=== PATIENT | female | born 1960 ===

== ENCOUNTER 2020-05-17 12:48 | Outpatient (REF) | payer OTHER, SELFPAY ==
--- NOTE | 2020-05-17 | MM_ITS ---
EXAMINATION: MM SCREENING DIGITAL BREAST TOMOSYNTHESIS, BILATERAL CLINICAL INFORMATION: Screening. Asymptomatic. The lifetime risk of breast cancer based on the Tyrer-Cuzick Model is 10.1%. COMPARISON: Mammography: November 20, 2018 and studies dating back to February 17, 2014 TECHNIQUE: Digital breast tomosynthesis is performed in both the craniocaudal and mediolateral oblique views along with computer-aided detection (CAD). Synthesized 2D images are generated from the tomosynthesis. FINDINGS: The breasts are almost entirely fatty (ACR BI-RADS breast composition Category a). There are no significant masses, abnormal calcifications, or other abnormalities. MM/MM tomosynthesis screening BI IMPRESSION: There are no significant changes from prior study. ASSESSMENT: BI-RADS 1: Negative RECOMMENDATION: Routine annual mammography screening. This patient's information was entered into a reminder system with a target due date for their next mammogram.
== END 2020-05-17 12:49 | disposition home or self-care (01) ==
LOC: HO.MAMMO 12:48
PROVIDERS: Visit Provider Internal Medicine
DX: Z12.31 Encounter for screening mammogram for malignant neoplasm of breast (principal)
CPT/HCPCS: 77063; 77067

== ENCOUNTER 2020-05-20 08:35 | Outpatient (REF) | payer OTHER, SELFPAY ==
[2020-05-20 09:25] LABS: Alanine Aminotransferase 36 U/L (0-31); Albumin Level 4.2 g/dL (3.5-5.0); Alkaline Phosphatase 53 U/L (39-117); Anion Gap 13 (12-20); Aspartate Amino Transferase 22 U/L (5-31); Bilirubin Total 0.7 mg/dL (0.0-1.0); Blood Urea Nitrogen 22 mg/dL (9-16); Calcium 9.1 mg/dL (8.4-10.2); Carbon Dioxide 28 mmol/L (22-29); Chloride 102 mmol/L (96-108); Cholesterol 241 mg/dL; Estimated Glomerular Filt Rate > 60; Glucose Fasting 116 mg/dL (60-99); HDL Cholesterol 46 mg/dL; LDL Cholesterol Calculated 150 mg/dl; Potassium 3.7 mmol/l (3.3-5.1); Sodium 139 mmol/L (135-145); Total Protein 7.5 g/dL (6.5-8.0); Triglycerides 227 mg/dL
== END 2020-05-20 08:36 | disposition home or self-care (01) ==
LOC: HO.LAB 08:35
PROVIDERS: PCP Internal Medicine; Visit Provider Internal Medicine
DX: E78.2 Mixed hyperlipidemia (principal)
CPT/HCPCS: 80053; 80061

== ENCOUNTER 2020-09-23 08:51 | Outpatient (REF) | payer OTHER, SELFPAY ==
[2020-09-23 11:00] LABS: TSH reflex Free T4 0.78 uIU/mL (0.32-4.0)
[2020-09-23 12:49] LABS: Alanine Aminotransferase 31 U/L (0-31); Albumin Level 4.2 g/dL (3.5-5.0); Alkaline Phosphatase 57 U/L (39-117); Anion Gap 14 (12-20); Aspartate Amino Transferase 20 U/L (5-31); Bilirubin Total 0.6 mg/dL (0.0-1.0); Blood Urea Nitrogen 19 mg/dL (9-16); Calcium 9.6 mg/dL (8.4-10.2); Carbon Dioxide 30 mmol/L (22-29); Chloride 102 mmol/L (96-108); Cholesterol 236 mg/dL; Estimated Glomerular Filt Rate > 60; Glucose Fasting 99 mg/dL (60-99); HDL Cholesterol 47 mg/dL; LDL Cholesterol Calculated 136 mg/dl; Potassium 4.3 mmol/L (3.3-5.1); Sodium 142 mmol/L (135-145); Total Protein 7.3 g/dL (6.5-8.0); Triglycerides 267 mg/dL
== END 2020-09-23 08:52 | disposition home or self-care (01) ==
LOC: HO.LAB 08:51
PROVIDERS: PCP Internal Medicine; Visit Provider Internal Medicine
DX: I10 Essential (primary) hypertension (principal); E78.5 Hyperlipidemia, unspecified; H05.20 Unspecified exophthalmos
CPT/HCPCS: 36415; 80053; 80061; 84443

== ENCOUNTER → 2020-11-22 12:32 | Outpatient (BNVA) | payer OTHER, SELFPAY | PROVIDERS: PCP Internal Medicine; Visit Provider Student in an Organized Health Care Education/Training Program | DX: M17.0 Bilateral primary osteoarthritis of knee (principal); F32.9 Major depressive disorder, single episode, unspecified; I10 Essential (primary) hypertension | CPT/HCPCS: 99212 ==

== ENCOUNTER 2021-01-27 09:37 | Outpatient (REF) | payer OTHER, SELFPAY ==
[2021-01-27 10:45] LABS: Alanine Aminotransferase 26 U/L (0-31); Albumin Level 4.2 g/dL (3.5-5.0); Alkaline Phosphatase 59 U/L (39-117); Anion Gap 11 (12-20); Aspartate Amino Transferase 19 U/L (5-31); Bilirubin Total 0.4 mg/dL (0.0-1.0); Blood Urea Nitrogen 12 mg/dL (9-16); Calcium 9.5 mg/dL (8.4-10.2); Carbon Dioxide 27 mmol/L (22-29); Chloride 108 mmol/L (96-108); Cholesterol 222 mg/dL; Estimated Glomerular Filt Rate > 60; Glucose Fasting 91 mg/dL (60-99); HDL Cholesterol 47 mg/dL; LDL Cholesterol Calculated 147 mg/dl; Potassium 4.4 mmol/L (3.3-5.1); Sodium 142 mmol/L (135-145); Total Protein 7.4 g/dL (6.5-8.0); Triglycerides 142 mg/dL
== END 2021-01-27 09:38 | disposition home or self-care (01) ==
LOC: HO.LAB 09:37
PROVIDERS: PCP Internal Medicine; Visit Provider Internal Medicine
DX: E78.5 Hyperlipidemia, unspecified (principal); E78.2 Mixed hyperlipidemia
CPT/HCPCS: 36415; 80053; 80061

== ENCOUNTER 2021-01-30 16:22 | Outpatient (REF) | payer OTHER, SELFPAY ==
--- NOTE | ~2021-01-30 | XR_ITS ---
EXAMINATION: XR KNEE, LEFT CLINICAL INFORMATION: Pain COMPARISON: Previous x-ray October 2017 TECHNIQUE: Four views of the left knee. FINDINGS: Bone alignment is normal. No fracture or dislocation is seen. There is joint space narrowing at the lateral femoral tibial joint. There are small osteophytes at the patellofemoral joint. There are osteophytes at the quadriceps tendon insertion to the patella and the patellar tendon origin. There is a moderate to large joint effusion. XR/XR knee LT 2V IMPRESSION: Mild arthritis and moderate to large joint effusion.
== END 2021-01-30 16:23 | disposition home or self-care (01) ==
LOC: HO.XRAY 16:22
PROVIDERS: PCP Internal Medicine; Visit Provider Internal Medicine
DX: M25.562 Pain in left knee (principal)
CPT/HCPCS: 73560

== ENCOUNTER 2021-02-19 09:46 | Outpatient (REF) | payer OTHER, SELFPAY | END 2021-02-19 09:47 | disposition home or self-care (01) | LOC: HO.LAB 09:46 | PROVIDERS: PCP Internal Medicine; Visit Provider Internal Medicine | DX: Z20.822 Contact with and (suspected) exposure to COVID-19 (principal) | CPT/HCPCS: C9803; U0003; U0005 ==

== ENCOUNTER 2021-03-12 08:01 | Outpatient (REF) | payer OTHER, SELFPAY | END 2021-03-12 08:02 | disposition home or self-care (01) | LOC: HO.HOSX 08:01 | PROVIDERS: Visit Provider Orthopaedic Surgery | DX: Z13.89 Encounter for screening for other disorder (principal) ==

== ENCOUNTER 2021-05-25 10:50 | Outpatient (REF) | payer OTHER, SELFPAY ==
--- NOTE | ~2021-05-25 | MM_ITS ---
EXAMINATION: MM SCREENING DIGITAL BREAST TOMOSYNTHESIS, BILATERAL CLINICAL INFORMATION: Screening. Asymptomatic. The lifetime risk of breast cancer based on the Tyrer-Cuzick Model is 12%. COMPARISON: Mammography: 05/17/2020, 11/20/2018, 10/14/2017 TECHNIQUE: Digital breast tomosynthesis is performed in both the craniocaudal and mediolateral oblique views along with computer-aided detection (CAD). Synthesized 2D images are generated from the tomosynthesis. FINDINGS: The breasts are almost entirely fatty (ACR BI-RADS breast composition Category a). There are no significant masses, abnormal calcifications, or other abnormalities. Background stromal markings are stable. No abnormal calcifications. No developing density. Low left axillary tail node stable. No significant changes. MM/MM tomosynthesis screening BI IMPRESSION: No mammographic evidence of malignancy. ASSESSMENT: BI-RADS 1: Negative RECOMMENDATION: Routine annual mammography screening. This patient's information was entered into a reminder system with a target due date for their next mammogram.
== END 2021-05-25 10:51 | disposition home or self-care (01) ==
LOC: HO.MAMMO 10:50
PROVIDERS: Visit Provider Internal Medicine
DX: Z12.31 Encounter for screening mammogram for malignant neoplasm of breast (principal)
CPT/HCPCS: 77063; 77067

== ENCOUNTER 2021-06-22 11:04 | Outpatient (REF) | payer OTHER, SELFPAY ==
[2021-06-22 11:28] LABS: MANUAL DIFF FLAG NO
[2021-06-22 11:47] LABS: Basophils Percent Auto 0.4 % (0-2); Eosinophils Absolute Auto 0.1 X10*3/uL (0.0-0.4); Eosinophils Percent Auto 0.8 % (0-4); Hematocrit 40.8 % (37.0-47.0); Hemoglobin 13.4 g/dl (12.0-16.0); Imm Gran Abs Auto 0.02 X10*3/uL (0.00-0.03); Imm Gran Pct Auto 0.2 % (0.0-0.4); Lymphocytes Absolute Auto 1.7 X10*3/uL (1.2-4.9); Mean Corpuscular HGB Conc 32.8 g/dl (31.0-35.0); Mean Corpuscular Hemoglobin 29.5 pg (27.0-33.0); Mean Corpuscular Volume 89.9 fL (80.0-98.0); Mean Platelet Volume 12.3 fL (9.4-12.3); Monocytes Absolute Auto 0.7 X10*3/uL (0.1-1.2); Monocytes Percent Auto 8.5 % (2-11); Neutrophils Absolute Auto 5.8 x10*3/uL (2.0-8.3); Neutrophils Percent Auto 70.1 % (45-73); Platelet Count 240 X10*3/uL (160-400); Red Blood Count 4.54 X10*6/uL (4.20-5.50); White Blood Count 8.3 X10*3/uL (4.8-10.8)
[2021-06-22 12:25] LABS: Alanine Aminotransferase 26 U/L (0-31); Alkaline Phosphatase 58 U/L (39-117); Anion Gap 10 (12-20); Aspartate Amino Transferase 18 U/L (5-31); Bilirubin Total 0.4 mg/dL (0.0-1.0); Blood Urea Nitrogen 8 mg/dL (9-16); Calcium 9.5 mg/dL (8.4-10.2); Carbon Dioxide 26 mmol/L (22-29); Chloride 108 mmol/L (96-108); Cholesterol 246 mg/dL; Estimated Glomerular Filt Rate > 60; Glucose Fasting 101 mg/dL (60-99); HDL Cholesterol 46 mg/dL; LDL Cholesterol Calculated 158 mg/dl; Sodium 140 mmol/L (135-145); Total Protein 7.3 g/dL (6.5-8.0); Triglycerides 214 mg/dL
[2021-06-22 12:36] LABS: Free T4 (Free Thyroxine) 0.98 ng/dL (0.71-1.85); Thyroid Stimulating Hormone 0.76 uIU/mL (0.32-4.0)
[2021-06-27 15:31] LABS: Vitamin D 25-OH, D2 <4 ng/mL; Vitamin D 25-OH, D3 15 ng/mL; Vitamin D 25-OH, Total 15 ng/mL (30-100)
== END 2021-06-22 11:05 | disposition home or self-care (01) ==
LOC: HO.LAB 11:04
PROVIDERS: PCP Internal Medicine; Visit Provider Internal Medicine
DX: E66.01 Morbid (severe) obesity due to excess calories (principal); Z68.36 Body mass index [BMI] 36.0-36.9, adult; I10 Essential (primary) hypertension; E78.5 Hyperlipidemia, unspecified; E55.9 Vitamin D deficiency, unspecified
CPT/HCPCS: 36415; 80053; 80061; 82306; 84439; 84443; 85025

== ENCOUNTER 2021-11-02 09:08 | Outpatient (REF) | payer OTHER, SELFPAY ==
[2021-11-02 10:58] LABS: Alanine Aminotransferase 27 U/L (0-31); Albumin Level 4.3 g/dL (3.5-5.0); Alkaline Phosphatase 47 U/L (39-117); Anion Gap 13 (12-20); Aspartate Amino Transferase 21 U/L (5-31); Bilirubin Total 0.6 mg/dL (0.0-1.0); Blood Urea Nitrogen 20 mg/dL (9-16); Carbon Dioxide 27 mmol/L (22-29); Chloride 104 mmol/L (96-108); Cholesterol 212 mg/dL; Estimated Glomerular Filt Rate > 60; Glucose Fasting 94 mg/dL (60-99); HDL Cholesterol 47 mg/dL; LDL Cholesterol Calculated 137 mg/dl; Potassium 4.1 mmol/L (3.3-5.1); Sodium 140 mmol/L (135-145); Total Protein 7.7 g/dL (6.5-8.0); Triglycerides 140 mg/dL
== END 2021-11-02 09:09 | disposition home or self-care (01) ==
LOC: HO.LAB 09:08
PROVIDERS: PCP Internal Medicine; Visit Provider Internal Medicine
DX: E78.5 Hyperlipidemia, unspecified (principal); E66.01 Morbid (severe) obesity due to excess calories; Z68.35 Body mass index [BMI] 35.0-35.9, adult
CPT/HCPCS: 36415; 80053; 80061

== ENCOUNTER → 2021-11-22 12:42 | Outpatient (BNVA) | payer OTHER, SELFPAY | PROVIDERS: PCP Internal Medicine; Visit Provider Nurse Practitioner Family | DX: M17.0 Bilateral primary osteoarthritis of knee (principal); M54.50 Low back pain, unspecified | CPT/HCPCS: 99212 ==

== ENCOUNTER 2021-11-26 10:00 | Outpatient (REF) | payer OTHER, SELFPAY ==
--- NOTE | ~2021-11-26 | XR_ITS ---
EXAMINATION: XR LUMBAR SPINE XR KNEE, RIGHT CLINICAL INFORMATION: Low back pain. Right knee pain. COMPARISON: None. TECHNIQUE: Lumbar spine 3 views. Right knee 4 views. FINDINGS: Lumbar Spine: There is maintained lumbar lordosis. There is grade 1 anterolisthesis L3 over L4 and L4 over L5. The rest of the vertebral alignment is normal. There is loss of L4-L5 disc height. The rest of the disc heights are normal. There is no visible acute fracture, dislocation or subluxation seen. There is mild bilateral L4-L5 facet joint arthropathy. The SI joints are symmetrical and normal. The paravertebral soft tissues are normal. Right Knee: Their is mild valgus deformity right knee. There is moderate loss of lateral and patellar femoral compartment joint space with mild periarticular spurring. There is mild suprapatellar joint effusion. No loose bodies or bony erosive changes seen. There is no acute fracture. XR/XR lumbar spine 2-3V IMPRESSION: Moderate degenerative changes lateral and patellofemoral compartments. No visible acute fracture or dislocation seen. Grade 1 anterolisthesis L3 over L4 and L4 over L5. Mild degenerative disc changes L4-L5 disc level.
--- NOTE | ~2021-11-26 | XR_ITS ---
EXAMINATION: XR LUMBAR SPINE XR KNEE, RIGHT CLINICAL INFORMATION: Low back pain. Right knee pain. COMPARISON: None. TECHNIQUE: Lumbar spine 3 views. Right knee 4 views. FINDINGS: Lumbar Spine: There is maintained lumbar lordosis. There is grade 1 anterolisthesis L3 over L4 and L4 over L5. The rest of the vertebral alignment is normal. There is loss of L4-L5 disc height. The rest of the disc heights are normal. There is no visible acute fracture, dislocation or subluxation seen. There is mild bilateral L4-L5 facet joint arthropathy. The SI joints are symmetrical and normal. The paravertebral soft tissues are normal. Right Knee: Their is mild valgus deformity right knee. There is moderate loss of lateral and patellar femoral compartment joint space with mild periarticular spurring. There is mild suprapatellar joint effusion. No loose bodies or bony erosive changes seen. There is no acute fracture. XR/XR knee RT 3V IMPRESSION: Moderate degenerative changes lateral and patellofemoral compartments. No visible acute fracture or dislocation seen. Grade 1 anterolisthesis L3 over L4 and L4 over L5. Mild degenerative disc changes L4-L5 disc level.
[2021-11-26 11:00] LABS: Alanine Aminotransferase 22 U/L (0-31); Albumin Level 4.4 g/dL (3.5-5.0); Alkaline Phosphatase 49 U/L (39-117); Anion Gap 13 (12-20); Aspartate Amino Transferase 17 U/L (5-31); Bilirubin Total 0.3 mg/dL (0.0-1.0); Blood Urea Nitrogen 24 mg/dL (9-16); Calcium 10.2 mg/dL (8.4-10.2); Carbon Dioxide 26 mmol/L (22-29); Chloride 103 mmol/L (96-108); Estimated Glomerular Filt Rate > 60; Glucose Fasting 101 mg/dL (60-99); Potassium 4.1 mmol/L (3.3-5.1); Sodium 138 mmol/L (135-145); Total Protein 7.6 g/dL (6.5-8.0)
== END 2021-11-26 10:01 | disposition home or self-care (01) ==
LOC: HO.XRAY 10:00
PROVIDERS: PCP Internal Medicine; Visit Provider Nurse Practitioner Family
DX: M25.561 Pain in right knee (principal); M54.50 Low back pain, unspecified; I10 Essential (primary) hypertension
CPT/HCPCS: 36415; 72100; 73562; 80053

== ENCOUNTER 2022-04-12 10:30 | Emergency (ER) | payer OTHER, SELFPAY ==
--- NOTE | 2022-04-12 | ECG_ITS ---
Test Reason : chest pain Blood Pressure : / mmHG Vent. Rate : 087 BPM Atrial Rate : 097 BPM P-R Int : 130 ms QRS Dur : 098 ms QT Int : 370 ms P-R-T Axes : -15 -44 043 degrees QTc Int : 445 ms Poor data quality Sinus rhythm Left anterior fascicular block RSR' or QR pattern in V1 suggests right ventricular conduction delay Left ventricular hypertrophy ( R in aVL , [place] product , Romhilt-Morales ) Abnormal ECG When compared with ECG of 16-DEC-2018 19:45, T wave inversion no longer evident in Inferior leads Referred By: Generic ED Physician Electronically Signed By:MAHAMED BARGER MD
--- NOTE | ~2022-04-12 | CT_ITS ---
EXAMINATION: CT HEAD WITHOUT CONTRAST CLINICAL INFORMATION: Left-sided headache COMPARISON: 03/05/2016 TECHNIQUE: Contiguous axial imaging was performed from the skull base to vertex without intravenous administration of contrast. This CT examination was performed using dose optimization techniques as appropriate, variously including the following: *Automated exposure control *Adjustment of mA and/or kV according to patient size (this includes techniques or standardized protocols for targeted exams where dose is matched to indication/reason for exam; i.e. extremities or head) *Use of iterative reconstruction technique DLP: 770 mGy-cm FINDINGS: There is no evidence of acute intracranial hemorrhage or territorial infarction. No abnormal mass effect or midline shift is seen. Clemons to white matter differentiation is well preserved. No extra-axial fluid collections are identified. No hydrocephalus. No significant volume loss. There is no abnormal attenuation within the brain parenchyma. No acute osseous or soft tissue abnormality. The mastoid air cells and visualized portions of the paranasal sinuses are well aerated. CT/CT head/brain wo IV con IMPRESSION: No acute intracranial pathology.
--- NOTE | ~2022-04-12 | XR_ITS ---
EXAMINATION: XR CHEST CLINICAL INFORMATION: Right-sided chest pain COMPARISON: 01/24/2017 TECHNIQUE: Frontal view of the chest was obtained. FINDINGS: Articulates overlie the chest. The lungs are well expanded. There is no focal consolidation, edema, or effusion. No pneumothorax. The cardiomediastinal silhouette is within normal limits. No acute osseous abnormality. XR/XR chest 1V IMPRESSION: No acute pulmonary disease.
[2022-04-12 10:32] VITALS: BP 187/103; PULSE 88; RESP 16; TEMP 36; O2SAT 97; BMI 32.3
[2022-04-12 10:49] LABS: MANUAL DIFF FLAG NO
[2022-04-12 10:51] LABS: Basophils Absolute Auto 0.1 X10*3/uL (0.0-0.2); Basophils Percent Auto 0.7 % (0-2); Eosinophils Absolute Auto 0.1 X10*3/uL (0.0-0.4); Eosinophils Percent Auto 0.5 % (0-4); Hemoglobin 15.6 g/dl (12.0-16.0); Imm Gran Abs Auto 0.04 X10*3/uL (0.00-0.03); Imm Gran Pct Auto 0.3 % (0.0-0.4); Lymphocytes Absolute Auto 2.2 X10*3/uL (1.2-4.9); Lymphocytes Percent Auto 18.2 % (20-40); Mean Corpuscular HGB Conc 33.9 g/dl (31.0-35.0); Mean Corpuscular Hemoglobin 28.6 pg (27.0-33.0); Mean Corpuscular Volume 84.4 fL (80.0-98.0); Mean Platelet Volume 12.1 fL (9.4-12.3); Monocytes Percent Auto 8.5 % (2-11); Neutrophils Absolute Auto 8.6 x10*3/uL (2.0-8.3); Neutrophils Percent Auto 71.8 % (45-73); Platelet Count 326 X10*3/uL (160-400); Red Blood Count 5.45 X10*6/uL (4.20-5.50); Red Cell Distribution Width 13.2 % (11.0-16.0)
[2022-04-12 11:03] LABS: Anion Gap 19 (12-20); Blood Urea Nitrogen 16 mg/dL (9-16); Calcium 10.1 mg/dL (8.4-10.2); Carbon Dioxide 20 mmol/L (22-29); Chloride 103 mmol/L (96-108); Creatinine Clr Calc Pharmacy 90.9; Estimated Glomerular Filt Rate > 60; Glucose Random 91 mg/dL (60-115); Potassium 4.1 mmol/L (3.3-5.1); Sodium 138 mmol/L (135-145)
[2022-04-12 11:11] LABS: Troponin-I High Sensitivity < 3.5 ng/L (<3.5-17.0)
[2022-04-12 11:32] LABS: Erythrocyte Sedimentation Rate 7 MM/HR (0-20)
--- NOTE | 2022-04-12 12:01 | ED_ITS ---
HPI - Chest Pain General Chief Complaint: Chest Pain Stated Complaint: head pain, chest pain, high blood pressure Time Seen by Provider: 04/12/22 11:09 History of Present Illness HPI narrative: [age] year female history of anxiety, and high blood pressure presents to ED for left-sided headache, right-sided chest pain described as heart palpitation for the past 3 days. Patient feels anxious. Patient denies any shortness of breath, leg swelling, calf pain, coughing up blood, slurred speech, loss of vision, facial droop, or paralysis of extremities. Patient states her highest blood pressure has been is 174 systolic. Patient is on blood pressure medication. patient denies any trauma. Patient denies any chest pain described as pressure. Related Data Home Medications Medication Instructions Recorded Confirmed bupropion HCl 300 mg 24 hr tablet, 300 mg PO QAM 05/31/20 03/27/22 extended release acetaminophen 650 mg 1,300 mg PO Q12H 11/22/21 03/27/22 tablet,extended release (Tylenol Arthritis Pain) Previous Rx's Medication Instructions Recorded ibuprofen 400 mg tablet 400 mg PO Q8H PRN pain 30 days #90 05/31/20 tabs trazodone 50 mg tablet 100 mg PO BEDTIME PRN insomnia 90 07/28/20 days #90 tabs walker #1 ea 01/30/21 chlorthalidone 50 mg tablet 50 mg PO DAILY 90 days #90 tabs 03/28/21 lisinopril 40 mg tablet 40 mg PO DAILY 90 days #90 tabs 06/21/21 atorvastatin 80 mg tablet 80 mg PO BEDTIME 90 days #90 tabs 06/26/21 cholecalciferol (vitamin D3) 50 50 mcg PO DAILY 90 days #90 caps 06/27/21 mcg (2,000 unit) capsule fenofibrate 54 mg tablet 54 mg PO DAILY 90 days #90 tabs 10/18/21 clonazepam 0.5 mg tablet 0.5 mg PO BID PRN anxiety 10 days 01/22/22 #20 tabs amlodipine 10 mg tablet 10 mg PO DAILY 90 days #90 tabs 03/27/22 Allergies Allergy/AdvReac Type Severity Reaction Status Date / Time aspirin [ASA] Allergy Intermediate PALPITATION Verified 03/27/22 13:05 S Penicillins [PENICILLINS] Allergy Intermediate RASH Verified 03/27/22 13:05 topiramate AdvReac Intermediate headache Verified 03/27/22 13:05 Review of Systems Review of Systems: Left-sided headache, right-sided chest pain described as palpitations Yes all other systems are reviewed and are negative [facility] Past Medical History Medical History Anxiety Effusion, left knee Essential hypertension Left knee pain Lumbar degenerative disc disease Mild recurrent major depression Mixed hyperlipidemia Physical exam Severe obesity (BMI 35.0-35.9 with comorbidity) Severe obesity with body mass index (BMI) of 36.0 to 36.9 with serious comorbidity Surgical History History of laparoscopic cholecystectomy History of tubal ligation Family History Family History Father Myocardial infarction Alcoholism Mother Stroke Diabetes Hypertension Sister Breast cancer Son No problems noted. Family/Other FH: mental illness Mental health disorder Social History Social History Housing: House Alcohol intake: never Patient Tobacco Use Status: Never used Tobacco e-Cigarette/Vaping Use: Never Used Second Hand Smoke Exposure: No Advance Directives: Yes Advance Directives Information Provided: Yes Advance Directives on File: No service: No Current occupational status: unemployed Cognitive needs: Yes Hearing needs: No Vision needs: Yes Physical Exam Vital Signs: Vital Signs: Last Vital Signs Temp 96.8 F 04/12/22 10:32 Pulse 71 04/12/22 12:36 Resp 21 H 04/12/22 15:01 BP 158/90 H 04/12/22 15:01 Pulse Ox 97 04/12/22 15:01 O2 Del Method 04/12/22 15:01 BMI result Body Mass Index 32.3 Const: General: cooperative, healthy appearing, comfortable, no acute distress, well developed, alert, awake and Physically active Orientation/consciousness: oriented to person, oriented to time and patient oriented x3 HEENT: Head: Yes normal to inspection, Yes No palpable skull fracture present, Yes normocephalic, Yes atraumatic and No abrasion Eyes: General: appearance normal, both eyes and all related structures Neck: Neck: Yes normal visual inspection, Yes full ROM, Yes no lymphadenop athy, Yes no meningeal signs, Yes trachea midline, Yes supple, No anterior neck swelling and No tender Chest: Chest palpation & inspection: normal inspection of the chest Resp: Effort & Inspection: normal respiratory effort and able to speak in complete sentences Cardio: Jugular venous distension: no JVD Heart sounds: S1 normal heart sound present and S2 normal heart sound present GI: Inspection: Yes normal to inspection and No abdominal wall ecchymosis Palpation (GI): Soft to palpation, not firm, nontender, no guarding and not rigid : General: No CVA tenderness and Yes no CVA tenderness Back/Spine/Pelvis: Back: no CVA tenderness, No CVA tenderness and No back tenderness Skin: General skin exam: no rashes or lesions noted and elasticity normal Neuro: Other: NEGATIVE SLURRED SPEECH. NEGATIVE FACIAL DROOP. ALL EXTREMITIES EQUAL STRENGTH 5+. [id number] RAPID HAND MOVEMENT INTACT. NEGATIVE ROMBERG General: oriented to person, oriented to time, patient oriented x3, gait normal, tone normal, moves all extremities, no meningeal signs and CN's II-XI intact bilaterally Extrem: Other: negative for any swelling of lower extremities, calf pain, or tenderness on palpation Psych: Appearance: grossly normal, well kempt and not disheveled Course Course Course Narrative: medical evaluation to be done. Labs were ordered and ESR was included including troponin. Unlikely PE but due to patient stated right-sided chest pain described as palpitation but added D-dimer. Also at thyroid level. Negative for any neuro deficits. Due to aid with headache for 3 days will do a head CT scan. Also will check eye pressure to make sure there is no glaucoma. Reevaluation(s) Reevaluation #1: ESR came back negative not suspecting temperaturoral arteritis. Not suspect a meningitis. Left eye tonometry pressure is 4. riGHT EYE TONOMETRY PRESSURE IS 5. Not suspecting glaucoma. Head CT scan negative for bleed or stroke. One troponin negative after 3 days of right-sided palpitation. D-dimer negative. Wells score is 0. Spoke with daughter who states patient has been on the ANXIOUS at home due to problems in her home and with the neighbors and required cameras. Daughter admits to patient's suffering from severe anxiety AND STARTED HAVIGN SYMPTOMS DUE TO INCREASE CONFRONTATIONS WITH NEIGHBORS.. EKG negative STEMI. EKG shows premature ventricular complexes. Time: 14:54 MDM - Chest Pain MDM Narrative Medical decision making narrative: atypical chest pain. Headache. Anxiety Lab Data Result diagrams: 04/12/22 10:44 04/12/22 10:44 Labs: Lab Results 04/12/22 04/12/22 04/12/22 Range/Units 10:44 10:44 10:44 WBC 12.0 H (4.8-10.8) X10*3/uL RBC 5.45 D (4.20-5.50) X10*6/uL Hgb 15.6 (12.0-16.0) g/dl Hct 46.0 (37.0-47.0) % MCV 84.4 (80.0-98.0) fL MCH 28.6 (27.0-33.0) pg MCHC 33.9 (31.0-35.0) g/dl RDW 13.2 (11.0-16.0) % Plt Count 326 D (160-400) X10*3/uL MPV 12.1 (9.4-12.3) fL Immature Gran % (Auto) 0.3 (0.0-0.4) % Neut % (Auto) 71.8 (45-73) % Lymph % (Auto) 18.2 L (20-40) % Wythe % (Auto) 8.5 (2-11) % Eos % (Auto) 0.5 (0-4) % Baso % (Auto) 0.7 (0-2) % Lymph # (Auto) 2.2 (1.2-4.9) X10*3/uL Wythe # (Auto) 1.0 (0.1-1.2) X10*3/uL Eos # (Auto) 0.1 (0.0-0.4) X10*3/uL Baso # (Auto) 0.1 (0.0-0.2) X10*3/uL Abs Immat Gran (auto) 0.04 H (0.00-0.03) X10*3/uL Absolute Neuts (auto) 8.6 H (2.0-8.3) x10*3/uL Absolute Nucleated RBC 0.000 (0.0-0.012) X10*3/uL Nucleated RBC % (auto) 0.0 (0.0-0.2) /100WBC ESR 7 (0-20) MM/HR PT (10.0-13.1) SEC INR (0.9-1.1) APTT (26.0-36.4) SEC D-Dimer High Sensitivty NG/ML Sodium 138 (135-145) mmol/L Potassium 4.1 (3.3-5.1) mmol/L Chloride 103 (96-108) mmol/L Carbon Dioxide 20 L (22-29) mmol/L Anion Gap 19 (12-20) BUN 16 (9-16) mg/dL Creatinine 0.76 (0.5-1.4) mg/dL Estim Creat Clear Calc 90.9 Estimated GFR > 60 Random Glucose 91 (60-115) mg/dL Calcium 10.1 (8.4-10.2) mg/dL Magnesium 2.1 (1.6-2.6) mg/dL Total Bilirubin 0.5 (0.0-1.0) mg/dL Direct Bilirubin 0.2 (0.0-0.5) mg/dL AST 18 (5-31) U/L ALT 20 (0-31) U/L Alkaline Phosphatase 60 D (39-117) U/L Troponin I High Sens (<3.5-17.0) ng/L Total Protein 8.4 H (6.5-8.0) g/dL Albumin 4.7 (3.5-5.0) g/dL Lipase 34 (8-78) U/L TSH 1.32 (0.32-4.0) uIU/mL COVID-19 (RUIZ) (Negative) COVID-19 Clin Com 04/12/22 04/12/22 04/12/22 Range/Units 10:44 12:04 12:04 WBC (4.8-10.8) X10*3/uL RBC (4.20-5.50) X10*6/uL Hgb (12.0-16.0) g/dl Hct (37.0-47.0) % MCV (80.0-98.0) fL MCH (27.0-33.0) pg MCHC (31.0-35.0) g/dl RDW (11.0-16.0) % Plt Count (160-400) X10*3/uL MPV (9.4-12.3) fL Immature Gran % (Auto) (0.0-0.4) % Neut % (Auto) (45-73) % Lymph % (Auto) (20-40) % Wythe % (Auto) (2-11) % Eos % (Auto) (0-4) % Baso % (Auto) (0-2) % Lymph # (Auto) (1.2-4.9) X10*3/uL Wythe # (Auto) (0.1-1.2) X10*3/uL Eos # (Auto) (0.0-0.4) X10*3/uL Baso # (Auto) (0.0-0.2) X10*3/uL Abs Immat Gran (auto) (0.00-0.03) X10*3/uL Absolute Neuts (auto) (2.0-8.3) x10*3/uL Absolute Nucleated RBC (0.0-0.012) X10*3/uL Nucleated RBC % (auto) (0.0-0.2) /100WBC ESR (0-20) MM/HR PT 11.5 (10.0-13.1) SEC INR 1.0 (0.9-1.1) APTT 36.9 H (26.0-36.4) SEC D-Dimer High Sensitivty NG/ML Sodium (135-145) mmol/L Potassium (3.3-5.1) mmol/L Chloride (96-108) mmol/L Carbon Dioxide (22-29) mmol/L Anion Gap (12-20) BUN (9-16) mg/dL Creatinine (0.5-1.4) mg/dL Estim Creat Clear Calc Estimated GFR Random Glucose (60-115) mg/dL Calcium (8.4-10.2) mg/dL Magnesium (1.6-2.6) mg/dL Total Bilirubin (0.0-1.0) mg/dL Direct Bilirubin (0.0-0.5) mg/dL AST (5-31) U/L ALT (0-31) U/L Alkaline Phosphatase (39-117) U/L Troponin I High Sens < 3.5 (<3.5-17.0) ng/L Total Protein (6.5-8.0) g/dL Albumin (3.5-5.0) g/dL Lipase (8-78) U/L TSH (0.32-4.0) uIU/mL COVID-19 (RUIZ) Negative (Negative) COVID-19 Clin Com See Note 04/12/22 Range/Units 12:04 WBC (4.8-10.8) X10*3/uL RBC (4.20-5.50) X10*6/uL Hgb (12.0-16.0) g/dl Hct (37.0-47.0) % MCV (80.0-98.0) fL MCH (27.0-33.0) pg MCHC (31.0-35.0) g/dl RDW (11.0-16.0) % Plt Count (160-400) X10*3/uL MPV (9.4-12.3) fL Immature Gran % (Auto) (0.0-0.4) % Neut % (Auto) (45-73) % Lymph % (Auto) (20-40) % Wythe % (Auto) (2-11) % Eos % (Auto) (0-4) % Baso % (Auto) (0-2) % Lymph # (Auto) (1.2-4.9) X10*3/uL Wythe # (Auto) (0.1-1.2) X10*3/uL Eos # (Auto) (0.0-0.4) X10*3/uL Baso # (Auto) (0.0-0.2) X10*3/uL Abs Immat Gran (auto) (0.00-0.03) X10*3/uL Absolute Neuts (auto) (2.0-8.3) x10*3/uL Absolute Nucleated RBC (0.0-0.012) X10*3/uL Nucleated RBC % (auto) (0.0-0.2) /100WBC ESR (0-20) MM/HR PT (10.0-13.1) SEC INR (0.9-1.1) APTT (26.0-36.4) SEC D-Dimer High Sensitivty < 150 NG/ML Sodium (135-145) mmol/L Potassium (3.3-5.1) mmol/L Chloride (96-108) mmol/L Carbon Dioxide (22-29) mmol/L Anion Gap (12-20) BUN (9-16) mg/dL Creatinine (0.5-1.4) mg/dL Estim Creat Clear Calc Estimated GFR Random Glucose (60-115) mg/dL Calcium (8.4-10.2) mg/dL Magnesium (1.6-2.6) mg/dL Total Bilirubin (0.0-1.0) mg/dL Direct Bilirubin (0.0-0.5) mg/dL AST (5-31) U/L ALT (0-31) U/L Alkaline Phosphatase (39-117) U/L Troponin I High Sens (<3.5-17.0) ng/L Total Protein (6.5-8.0) g/dL Albumin (3.5-5.0) g/dL Lipase (8-78) U/L TSH (0.32-4.0) uIU/mL COVID-19 (RUIZ) (Negative) COVID-19 Clin Com ECG Data ECG #1: Interpretation: sinus rhythm with premature ventricular complex and premature ventricular complexes or fusion. Ventricular rate 87. Pr interval 130. QRS 98. QTC 445. Negative STEMI Discharge Plan Discharge Clinical Impression: Headache, Chest pain, atypical Patient Disposition: Home, Self-Care Instructions: Chest Pain (ED), General Headache (ED) Prescriptions: No Action trazodone 50 mg tablet 100 mg PO BEDTIME PRN (Reason: insomnia) 90 Days Qty: 90 3RF chlorthalidone 50 mg tablet 50 mg PO DAILY 90 Days Qty: 90 3RF lisinopril 40 mg tablet 40 mg PO DAILY 90 Days Qty: 90 3RF cholecalciferol (vitamin D3) 50 mcg (2,000 unit) capsule 50 mcg PO DAILY 90 Days Qty: 90 1RF fenofibrate 54 mg tablet 54 mg PO DAILY 90 Days Qty: 90 3RF clonazepam 0.5 mg tablet 0.5 mg PO BID PRN (Reason: anxiety) 10 Days Qty: 20 0RF (DME) walker Misc See Rx Instructions .ROUTE .MEDSUPPLY Qty: 1 0RF Rx Instructions: with seat and wheels atorvastatin 80 mg tablet 80 mg PO BEDTIME 90 Days Qty: 90 1RF bupropion HCl 300 mg tablet extended release 24 hr 300 mg PO QAM ibuprofen 400 mg tablet 400 mg PO Q8H PRN (Reason: pain) 30 Days Qty: 90 3RF amlodipine 10 mg tablet 10 mg PO DAILY 90 Days Qty: 90 0RF acetaminophen [Tylenol Arthritis Pain] 650 mg tablet extended release 1,300 mg PO Q12H Stand Alone Forms: Work/School Release Interventions: ED Discharge Assessment Last Done: 04/12/22 16:04 Discharge Date/Time: 04/12/22 16:04 Print Language: Citizen Of [place]
[2022-04-12 12:15] LABS: Alanine Aminotransferase 20 U/L (0-31); Albumin Level 4.7 g/dL (3.5-5.0); Alkaline Phosphatase 60 U/L (39-117); Aspartate Amino Transferase 18 U/L (5-31); Bilirubin Direct 0.2 mg/dL (0.0-0.5); Bilirubin Total 0.5 mg/dL (0.0-1.0); Lipase 34 U/L (8-78); Magnesium 2.1 mg/dL (1.6-2.6); Total Protein 8.4 g/dL (6.5-8.0)
[2022-04-12 12:20] LABS: Prothrombin Time 11.5 SEC (10.0-13.1)
[2022-04-12 12:23] LABS: Partial Thromboplastin Time 36.9 SEC (26.0-36.4)
[2022-04-12 12:29] LABS: COVID-19 Test Negative (Negative); IDNOW Serial# 16C4AD1C
[2022-04-12 12:36] VITALS: BP 160/90; PULSE 71; RESP 25; O2SAT 96
[2022-04-12 12:36] LABS: Thyroid Stimulating Hormone 1.32 uIU/mL (0.32-4.0)
[2022-04-12 13:03] LABS: D Dimer High Sensitivity < 150 NG/ML
[2022-04-12 15:01] VITALS: BP 158/90; RESP 21; O2SAT 97
[2022-04-12] MEDS: Acetaminophen 325 MG TABLET 650 MG PO (16:03)
== END 2022-04-12 16:04 | disposition home or self-care (01) ==
PROVIDERS: Physician Assistant; Emergency Provider Emergency Medicine; PCP Internal Medicine
DX: R07.89 Other chest pain (principal); R51.9 Headache, unspecified; R00.2 Palpitations; Z20.822 Contact with and (suspected) exposure to COVID-19; Z79.899 Other long term (current) drug therapy
CPT/HCPCS: 36415; 70450; 71045; 80048; 80076; 83690; 83735; 84443; 84484; 85025; 85379; 85610; 85652; 85730; 87635; 93005; 99284

== ENCOUNTER 2022-05-07 08:09 | Outpatient (REF) | payer OTHER, SELFPAY ==
--- NOTE | ~2022-05-07 | US_ITS ---
EXAMINATION: US ABDOMEN COMPLETE CLINICAL INFORMATION: Left upper quadrant pain. COMPARISON: None TECHNIQUE: Real-time imaging of the abdominal viscera. FINDINGS: PANCREAS: Normal. ABDOMINAL AORTA: The proximal, mid, and distal segments are normal in caliber. INFERIOR VENA CAVA: Visualized portions are normal. LIVER: The liver is normal in size. The liver contour is normal. Increased echogenicity. There is an hyperechoic observation with posterior shadowing in the right lower lobe measuring 0.8 cm favoring to represent a calcified granuloma. There is no intrahepatic biliary duct dilatation seen. GALLBLADDER: Surgically absent. COMMON BILE DUCT: Dilated measuring 1 cm in diameter. RIGHT KIDNEY: There is a simple cyst in the interpolar region measuring 0.6 cm for which no imaging follow-up is recommended. No hydronephrosis or renal calculi. The kidney measures 11.7 cm in maximum dimension. LEFT KIDNEY: Normal. No hydronephrosis. No renal calculi or focal parenchymal lesions. The kidney measures 10.6 cm in maximum dimension. SPLEEN: Normal. The spleen measures 11.9 cm in maximum dimension. FREE FLUID: None. US/US abdomen complete IMPRESSION: 1. Increased echogenicity of the liver is nonspecific and could be seen in the setting of hepatic steatosis or hepatocellular disease. Correlate with liver function tests. 2. Nonspecific dilatation of the common bile duct in the setting of cholecystectomy. If indicated MRCP could be obtained. 3. Simple cyst in the right kidney for which no imaging follow-up is recommended.
== END 2022-05-07 08:10 | disposition home or self-care (01) ==
LOC: HO.US 08:09
PROVIDERS: Visit Provider Internal Medicine
DX: R10.12 Left upper quadrant pain (principal)
CPT/HCPCS: 76700

== ENCOUNTER 2022-05-27 10:42 | Outpatient (REF) | payer OTHER, SELFPAY ==
--- NOTE | ~2022-05-27 | MM_ITS ---
EXAMINATION: MM SCREENING DIGITAL BREAST TOMOSYNTHESIS, BILATERAL CLINICAL INFORMATION: Screening. Asymptomatic. The lifetime risk of breast cancer based on the Tyrer-Cuzick Model is 11%. COMPARISON: Mammography: 05/25/2021, 05/17/2020 TECHNIQUE: Digital breast tomosynthesis is performed in both the craniocaudal and mediolateral oblique views along with computer-aided detection (CAD). Synthesized 2D images are generated from the tomosynthesis. Additional left MLO view is provided. FINDINGS: The breasts are almost entirely fatty (ACR BI-RADS breast composition Category a). There are no significant masses, abnormal calcifications, or other abnormalities. Background stromal markings are normal. No developing density or architectural abnormality. The axilla and skin contours are unremarkable. MM/MM tomosynthesis screening BI IMPRESSION: No mammographic evidence of malignancy. ASSESSMENT: BI-RADS 1: Negative RECOMMENDATION: Routine annual mammography screening. This patient's information was entered into a reminder system with a target due date for their next mammogram.
== END 2022-05-27 10:43 | disposition home or self-care (01) ==
LOC: HO.MAMMO 10:42
PROVIDERS: PCP Internal Medicine; Visit Provider Internal Medicine
DX: Z12.31 Encounter for screening mammogram for malignant neoplasm of breast (principal)
CPT/HCPCS: 77063; 77067

== ENCOUNTER 2022-06-10 12:51 | Outpatient (REF) | payer OTHER, SELFPAY ==
--- NOTE | ~2022-06-10 | MR_ITS ---
EXAMINATION: MR ABDOMEN WITHOUT CONTRAST CLINICAL INFORMATION: Other specified diseases of biliary tract. COMPARISON: Ultrasound 05/07/2022 TECHNIQUE: MR abdomen is performed without gadolinium contrast. Heavily T2-weighted MRCP images were obtained. FINDINGS: LUNG BASES: Lung bases are clear. LIVER: Mild loss of signal on opposed phase gradient echo T1-weighted images suggest mild diffuse hepatic steatosis. No focal lesion seen on noncontrast imaging. GALLBLADDER: Status post cholecystectomy. BILIARY TREE: No intrahepatic biliary ductal dilation. The common bile duct is normal in caliber, 0.7 cm in diameter. No intraluminal filling defects seen. PANCREAS: The pancreas is normal in appearance. No ductal dilatation, mass or sanjay-pancreatic fluid seen. SPLEEN: Normal. Normal size. No focal lesion. ADRENAL GLANDS: Normal. No adrenal mass. KIDNEYS AND URETERS: Normal size and signal. No hydronephrosis or solid mass. Well-circumscribed homogeneous T2 bright 5 mm simple cyst in the right mid kidney; no imaging follow-up recommended. LYMPHOVASCULAR STRUCTURES: Normal caliber aorta. IVC patent. No pathologically enlarged abdominal or retroperitoneal lymphadenopathy by size criteria OSSEOUS STRUCTURES: No acute or suspicious osseous abnormalities. No ascites. Visualized bowel is nondilated. MR/MR MRCP IMPRESSION: Mild diffuse hepatic steatosis. No biliary ductal dilatation or choledocholithiasis status post cholecystectomy.
== END 2022-06-10 12:52 | disposition home or self-care (01) ==
LOC: HO.MRI 12:51
PROVIDERS: Visit Provider Internal Medicine
DX: K83.8 Other specified diseases of biliary tract (principal)
CPT/HCPCS: 74181

== ENCOUNTER 2022-07-19 09:47 | Outpatient (REF) | payer OTHER, SELFPAY ==
--- NOTE | ~2022-07-19 | MM_ITS ---
EXAMINATION: BONE DENSITOMETRY CLINICAL INDICATION: Menopause. COMPARISON: Baseline BD dated 02/17/2014. TECHNIQUE: Using a [employer] DXA System (software version: 13.1) manufactured by [employer], dual-energy x-ray absorptiometry was performed of the lumbar spine and left hip. The images are of good technical quality. Summary results are attached. FINDINGS: AP SPINE L1-L4: Current: BMD 1.311 g/cm2, Z-score 1.7, T-score 1.1, normal, 4.7% decrease from baseline (<5% change is not significant). Baseline: BMD 1.376 g/cm2. LEFT FEMUR, NECK: Current: BMD 0.852 g/cm2, Z-score -0.5, T-score -1.3, osteopenia. Baseline: BMD 0.975 g/cm2. LEFT FEMUR, TOTAL: Current: BMD 0.922 g/cm2, Z-score -0.2, T-score -0.7, normal, 13.7% decrease from baseline (<5% change is not significant). Baseline: BMD 1.068 g/cm2. IDENTIFIED RISK FACTORS: Menopause. HISTORY OF FRACTURE: None listed. MEDICATIONS: None listed. MM/XR DEXA axial skeleton IMPRESSION: 1. DIAGNOSIS: Osteopenia based on the lowest T-score value of -1.3 in the femoral neck applying World Health Organization criteria. 2. 10-YEAR FRACTURE RISK PREDICTION, FRAX: Major osteoporotic fracture (clinical spine, forearm, hip or shoulder) 4.3%. Hip fracture 0.4%. 3. Treatment Recommendations: NOF guidelines recommend consideration for treatment in postmenopausal women and men age 50 and older presenting with the following: -A hip or vertebral (clinical or morphometric) fracture. -T-score less than or equal to -2.5 at the femoral neck or spine after appropriate evaluation to exclude secondary causes. -Low bone mass at the hip or spine and a 10-year fracture probability by FRAX of greater than or equal to 3% for hip fracture or greater than or equal to 20% for major osteoporotic fracture based on the [place] adapted WHO algorithm. 4. Other Recommendations: All treatment decisions require clinical judgment and consideration of individual patient factors, including patient preferences, comorbidities, previous drug use, risk factors not captured in the FRAX model (e.g. frailty, falls, vitamin D deficiency, increased bone turnover, interval significant decline in bone density) and possible under or overestimation of fracture risk by FRAX. Additional medical evaluation for secondary cause of low bone mineral density may be appropriate. FUTURE SCAN RECOMMENDATION: People with diagnosed cases of osteoporosis or at high risk for fracture should have regular bone mineral density tests. For patients eligible for Medicare, routine testing is allowed once every 2 years. The testing frequency can be increased to one year for patients who have rapidly progressing disease, those who are receiving or discontinuing medical therapy to restore bone mass, or have additional risk factors.
== END 2022-07-19 09:48 | disposition home or self-care (01) ==
LOC: HO.MAMMO 09:47
PROVIDERS: PCP Internal Medicine; Visit Provider Internal Medicine
DX: Z13.820 Encounter for screening for osteoporosis (principal); N95.9 Unspecified menopausal and perimenopausal disorder; Z78.0 Asymptomatic menopausal state
CPT/HCPCS: 77080

== ENCOUNTER 2022-09-10 14:04 | Outpatient (REF) | payer OTHER, SELFPAY ==
[2022-09-11 13:05] LABS: BV Int Neg Control Negative (Negative); BV Int Pos Control Positive (Positive)
== END 2022-09-10 14:05 | disposition home or self-care (01) ==
LOC: HO.LAB 14:04
PROVIDERS: PCP Internal Medicine; Visit Provider Advanced Practice Midwife
DX: N89.8 Other specified noninflammatory disorders of vagina (principal)
CPT/HCPCS: 87480; 87510; 87660

== ENCOUNTER 2022-09-10 15:00 | Outpatient (REF) | payer OTHER, SELFPAY ==
[2022-09-14 08:54] LABS: HPV mRNA E6/E7 rflx Not Detected (Not Detected)
== END 2022-09-10 15:01 | disposition home or self-care (01) ==
LOC: HO.LNP 15:00
PROVIDERS: Visit Provider Advanced Practice Midwife
DX: Z01.419 Encounter for gynecological examination (general) (routine) without abnormal findings (principal); Z11.51 Encounter for screening for human papillomavirus (HPV)
CPT/HCPCS: 87624; 88142

== ENCOUNTER 2022-12-18 10:05 | Outpatient (REF) | payer OTHER, SELFPAY ==
[2022-12-18 11:36] LABS: Alanine Aminotransferase 20 U/L (0-31); Albumin Level 4.2 g/dL (3.5-5.0); Alkaline Phosphatase 43 U/L (39-117); Anion Gap 15 (12-20); Aspartate Amino Transferase 18 U/L (5-31); Bilirubin Total 0.4 mg/dL (0.0-1.0); Blood Urea Nitrogen 20 mg/dL (9-16); Calcium 10.2 mg/dL (8.4-10.2); Carbon Dioxide 26 mmol/L (22-29); Chloride 104 mmol/L (96-108); Cholesterol 191 mg/dL; Estimated Glomerular Filt Rate > 60; Glucose Fasting 95 mg/dL (60-99); HDL Cholesterol 60 mg/dL; LDL Cholesterol Calculated 111 mg/dl; Sodium 141 mmol/L (135-145); Total Protein 7.4 g/dL (6.5-8.0); Triglycerides 102 mg/dL
[2022-12-18 12:05] LABS: Vitamin D 25-OH Total 23.5 ng/mL (>30)
== END 2022-12-18 10:06 | disposition home or self-care (01) ==
LOC: HO.LAB 10:05
PROVIDERS: PCP Internal Medicine; Visit Provider Internal Medicine
DX: I10 Essential (primary) hypertension (principal); E78.5 Hyperlipidemia, unspecified; E55.9 Vitamin D deficiency, unspecified
CPT/HCPCS: 36415; 80053; 80061; 82306

== ENCOUNTER 2022-12-23 11:08 | Outpatient (AMB) | payer OTHER, SELFPAY ==
--- NOTE | 2022-12-23 11:09 | MHC.PC.OV ---
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 Accompanied by: Daughter Allergies aspirin [ASA] Allergy (Intermediate, Verified 12/23/22 11:15) PALPITATIONS Penicillins [PENICILLINS] Allergy (Intermediate, Verified 12/23/22 11:15) RASH topiramate Adverse Reaction (Intermediate, Verified 12/23/22 11:15) headache Medication List - Last Reconciled 12/23/22 by Olya Wolf MD acetaminophen ER (Tylenol Arthritis Pain) 1,300 mg PO Q12H amlodipine 10 mg PO DAILY 90 days atorvastatin 80 mg PO BEDTIME 90 days bupropion HCl 300 mg PO QAM chlorthalidone 50 mg PO DAILY 90 days cholecalciferol (vitamin D3) 50 mcg PO DAILY 90 days clonazepam 0.5 mg PO BID PRN 10 days fenofibrate 54 mg PO DAILY 90 days ibuprofen 400 mg PO Q8H PRN 30 days lisinopril 40 mg PO DAILY 90 days Shower Chair As directed trazodone 100 mg (2 x 50 mg) PO BEDTIME PRN 90 days walker with seat and wheels Tobacco use date assessed: 07/02/22 Fall risk assessment: 1 Fall in past year Last assessed Fall Risk: 12/23/22 Dental Screening Dental Screen Date: 12/23/22 Did you have a dental visit in the last 12 months?: No Did you have a dental problem in the last 6 months where you did not have access to dental care?: No Was dental information given to patient?: Patient has dentist HPI HPI Comments History of Present Illness Details This is a 62-year-old female with hypertension, mild recurrent major depression, mixed hyperlipidemia and anxiety that comes today for follow-up on her conditions. Blood pressure stable. Depression stable with bupropion and anxiety stable with benzodiazepines as needed. Depression with anxiety is follow by psychiatrist. Cholesterol and triglycerides well control with medication. No chest pain or shortness of breath. Accompanied by daughter and granddaughter. [facility] Medical History Anxiety Effusion, left knee Essential hypertension Left knee pain Lumbar degenerative disc disease Mild recurrent major depression Mixed hyperlipidemia Physical exam Severe obesity (BMI 35.0-35.9 with comorbidity) Severe obesity with body mass index (BMI) of 36.0 to 36.9 with serious comorbidity Surgical History History of laparoscopic cholecystectomy History of tubal ligation Family History Father Myocardial infarction Alcoholism Mother Stroke Diabetes Hypertension Sister Breast cancer Son No problems noted. Family/Other FH: mental illness Mental health disorder Social History Housing: House Alcohol intake: never Patient Tobacco Use Status: Never used Tobacco e-Cigarette/Vaping Use: Never Used Second Hand Smoke Exposure: No service: No Current occupational status: unemployed Cognitive needs: Yes Hearing needs: No Vision needs: Yes Questionnaire Thrive Questionnaire Date Thrive assessed: 07/02/22 DOUG-7 AMB Questionnaire DOUG-7 Date DOUG - 7 assessed: 07/02/22 Source: Developed by Drs. Teddy Weber, Mehreen Waterman, Scooter Ingram and colleagues, with an educational lady from [employer]. Review of Systems Const All systems reviewed & are unremarkable except as noted in HPI and below Eyes Reports no additional complaints, Denies change in vision and Denies other visual disturbances Card Denies chest pain at rest, Denies chest pain with activity, Denies edema, Denies irregular heart rhythm, Denies claudication, Denies dyspnea, Denies dyspnea on exertion, Denies orthopnea, Denies paroxysmal nocturnal dyspnea and Denies slow heart rate Resp Denies cough, Denies dyspnea and Denies dyspnea on exertion GI Denies abdominal pain, Denies change in bowel habits, Denies excessive flatus, Denies nausea and Denies vomiting Denies urinary incontinence, Denies urinary hesitancy and Denies urinary urgency Musc Denies abnormal gait, Denies atrophy, Denies deformity and Denies limited range of motion Skin/Breast Denies bleeding lesions, Denies changing lesions and Denies rash Neuro Denies abnormal gait and Denies lack of coordination Physical exam (Primary Care) Vital Signs: Last Vital Signs BP 120/70 12/23/22 11:10 BMI result Body Mass Index 31.9 Tobacco/Smoking Status: Tobacco use Status Tobacco use date assessed 07/02/22 12/23/22 11:14 Patient Tobacco Use Status Never used Tobacco 12/23/22 11:14 e-Cigarette/Vaping Use Never Used 12/23/22 11:14 Thrive Assessment: Date of Thrive Assessment Date Thrive assessed 07/02/22 12/23/22 11:14 Eyes General: appearance normal, both eyes and all related structures Eyelids: Yes eyelids normal Conjunctivae: conjunctivae normal Neck Neck: Yes normal visual inspection and Yes supple Resp Effort & Inspection: normal respiratory effort Auscultation: clear to auscultation bilaterally Cardio Jugular venous distension: no JVD Rate: regular rate Rhythm: regular rhythm Heart sounds: S1 normal heart sound present and S2 normal heart sound present Extrem General: Yes full ROM Assessment and Plan Assessment & Plan (1) Essential hypertension: Code(s): I10 - Essential (primary) hypertension Plan: Continue lisinopril, chlorthalidone and amlodipine. Blood pressure goal is equal or less than 130/80. (2) Mixed hyperlipidemia: Code(s): E78.2 - Mixed hyperlipidemia Plan: Continue statins and fibrates. (3) Mild recurrent major depression: Code(s): F33.0 - Major depressive disorder, recurrent, mild Plan: Continue bupropion. Follow-up with psychiatry. (4) Anxiety: Code(s): F41.9 - Anxiety disorder, unspecified Plan: Continue benzodiazepines as needed. Follow-up with psychiatry. Coding Level of Care Code Est Pt Level 4 (35650) Diagnoses Essential hypertension I10 Mixed hyperlipidemia E78.2 Mild recurrent major depression F33.0 Anxiety F41.9 Time Spent (min) 22
[2022-12-23 11:10] VITALS: BP 120/70; BMI 31.9
== END 2022-12-23 11:24 | disposition home or self-care (01) ==
PROVIDERS: PCP Internal Medicine; Visit Provider Internal Medicine
DX: I10 Essential (primary) hypertension (principal); E78.2 Mixed hyperlipidemia; F33.0 Major depressive disorder, recurrent, mild; F41.9 Anxiety disorder, unspecified
CPT/HCPCS: 99214

== ENCOUNTER 2023-07-04 11:24 | Outpatient (REF) | payer OTHER, SELFPAY | END 2023-07-04 11:25 | disposition home or self-care (01) | LOC: HO.MAMMO 11:24 | PROVIDERS: PCP Internal Medicine; Visit Provider Internal Medicine | DX: Z12.31 Encounter for screening mammogram for malignant neoplasm of breast (principal) | CPT/HCPCS: 77063; 77067 ==

== ENCOUNTER → 2023-07-04 11:45 | Outpatient (BNV) | payer OTHER, SELFPAY | PROVIDERS: PCP Internal Medicine; Visit Provider Radiology Diagnostic Radiology | DX: Z12.31 Encounter for screening mammogram for malignant neoplasm of breast (principal) | CPT/HCPCS: 77063; 77067 ==

== ENCOUNTER 2023-07-14 10:03 | Outpatient (AMB) | payer OTHER, SELFPAY ==
--- NOTE | 2023-07-14 10:12 | A.OFFPC_ITS ---
Vital Signs 07/14/23 10:14 Height 5 ft 8 in Weight 215 lb BMI 32.7 BP 132/80 Blood Pressure Location Lt brachial Position Sitting Intake Visit Reasons: Annual Exam Intake Note: Patient here for an annual physical exam Manager Administrative Required: No Accompanied by: Daughter Allergies aspirin [ASA] Allergy (Intermediate, Verified 07/14/23 10:37) PALPITATIONS Penicillins [PENICILLINS] Allergy (Intermediate, Verified 07/14/23 10:37) RASH topiramate Adverse Reaction (Intermediate, Verified 07/14/23 10:37) headache Medication List - Last Reconciled 07/14/23 by Olya Wolf MD acetaminophen ER (Tylenol Arthritis Pain) 1,300 mg PO Q12H amlodipine 10 mg PO DAILY 90 days atorvastatin 80 mg PO BEDTIME 90 days bupropion HCl 300 mg PO QAM chlorthalidone 50 mg PO DAILY 90 days cholecalciferol (vitamin D3) 50 mcg PO DAILY 90 days clonazepam 0.5 mg PO BID PRN 10 days fenofibrate 54 mg PO DAILY 90 days ibuprofen 400 mg PO Q8H PRN 30 days lisinopril 40 mg PO DAILY 90 days Shower Chair As directed trazodone 100 mg (2 x 50 mg) PO BEDTIME PRN 90 days walker with seat and wheels Tobacco use date assessed: 07/14/23 Fall risk assessment: No Falls in past year Last assessed Fall Risk: 07/14/23 Dental Screening Dental Screen Date: 07/14/23 Did you have a dental visit in the last 12 months?: No Did you have a dental problem in the last 6 months where you did not have access to dental care?: No Was dental information given to patient?: Patient has dentist HPI HPI Comments History of Present Illness Details This is a 63-year-old female with mild major depression that comes for her physical exam. Depression stable with bupropion. Last mammogram was June 2023 and results are still pending. Last Pap smear was 2022 and was normal. Last colonoscopy was 2013 and was normal with not an excellent prep and was advised to be repeated in 5-7 years. No chest pain or shortness of breath. [facility] Medical History Severe obesity (BMI 35.0-35.9 with comorbidity) Physical exam Effusion, left knee Severe obesity with body mass index (BMI) of 36.0 to 36.9 with serious comorbidity Mild recurrent major depression Left knee pain Lumbar degenerative disc disease Anxiety Mixed hyperlipidemia Essential hypertension Surgical History History of tubal ligation History of laparoscopic cholecystectomy Family History Father Myocardial infarction Alcoholism Mother Stroke Diabetes Hypertension Sister Breast cancer Son No problems noted. Family/Other FH: mental illness Mental health disorder Social History Housing: House Alcohol intake: never Patient Tobacco Use Status: Never used Tobacco e-Cigarette/Vaping Use: Never Used Second Hand Smoke Exposure: No service: No Current occupational status: unemployed Cognitive needs: Yes Hearing needs: No Vision needs: Yes Questionnaire PHQ-9 Over the last 2 weeks, how often have you been bothered by any of the following problems? 1. Little interest or pleasure in doing things: several days 2. Feeling down, depressed, or hopeless: several days 3. Trouble falling or staying asleep, or sleeping too much: several days 4. Feeling tired or having little energy: several days 5. Poor appetite or overeating: not at all 6. Feeling bad about yourself - or that you are a failure or have let yourself or your family down: not at all 7. Trouble concentrating on things, such as reading the newspaper or watching television: not at all 8. Moving or speaking so slowly that other people could have noticed. Or the opposite - being so fidgety or restless that you have been moving around a lot more than usual: not at all 9. Thoughts that you would be better off or of hurting yourself in some way: not at all Total score: 4 Depression Screening Interpretation: Positive Depression Screening Follow-up: Existing condition and In treatment Depression Screening Done: Yes 43183 - PHQ-9 Billing: Yes Source: Developed by Drs. Teddy Weber, Mehreen Waterman, Scooter Ingram and colleagues, with an educational lady from [employer]. Thrive Questionnaire Date Thrive assessed: 07/14/23 I am a: Patient What is your living situation today?: I have a steady place to live Within the past 12 months, did the food you bought not last and you didn't have the money to get more?: Never true Within the past 12 months, did you worry whether your food would run out before you got money to buy more?: Never true Do you have trouble paying for medicines?: No Do you have trouble getting transportation to medical appointments?: No Do you have trouble paying your heating and electricity bill?: No Do you have trouble taking care of your child, family member or friend?: No Do you have trouble with day-to-day activities such as bathing, preparing meals, shopping, managing finances, etc.?: No Are you currently unemployed and looking for a job?: No Are you interested in more education?: No Please select the resources that you would like help with: None Currently or been in a relationship where the following occur: no concerns reported THRIVE Score: 0 AUDIT C Alcohol Use Questionnaire (AUDIT-C) 1. How often do you have a drink containing alcohol?: Never Total Score: 0 Score Reviewed/Action Taken: No DOUG-7 AMB Questionnaire DOUG-7 Date DOUG - 7 assessed: 07/14/23 Feeling nervous, anxious, or on edge: 1 = Several days Not being able to stop or control worryin = Not at all Worrying too much about different things: 1 = Several days Trouble relaxin = Not at all Being so restless that it is hard to sit still: 0 = Not at all Becoming easily annoyed or irritable: 0 = Not at all Feeling afraid as if something awful might happen: 1 = Several days Total DOUG-7 score (0-4 normal; 5-9 mild; 10-14 moderate; 15-21 severe): 3 Source: Developed by Drs. Teddy Weber, Mehreen Waterman, Scooter Ingram and colleagues, with an educational lady from [employer]. DOUG-7 Assessment Billing DOUG-7 Assessment Tool: DOUG-7 Assessment 56418 Review of Systems Const All systems reviewed & are unremarkable except as noted in HPI and below Eyes Reports no additional complaints, Denies change in vision and Denies other visual disturbances Card Denies chest pain at rest, Denies chest pain with activity, Denies edema, Denies irregular heart rhythm, Denies claudication, Denies dyspnea, Denies dyspnea on exertion, Denies orthopnea, Denies paroxysmal nocturnal dyspnea and Denies slow heart rate Resp Denies cough, Denies dyspnea and Denies dyspnea on exertion GI Denies abdominal pain, Denies change in bowel habits, Denies excessive flatus, Denies nausea and Denies vomiting Denies urinary incontinence, Denies urinary hesitancy and Denies urinary urgency Musc Denies abnormal gait, Denies atrophy, Denies deformity and Denies limited range of motion Skin/Breast Denies bleeding lesions, Denies changing lesions and Denies rash Neuro Denies abnormal gait, Denies behavioral changes, Denies confusion and Denies lack of coordination Psych Denies behavioral changes and Denies confusion Physical exam (Primary Care) Vital Signs: Last Vital Signs BP 132/80 07/14/23 10:14 BMI result Body Mass Index 32.7 Tobacco/Smoking Status: Tobacco use Status Tobacco use date assessed 07/14/23 07/14/23 10:21 Patient Tobacco Use Status Never used Tobacco 07/14/23 10:21 e-Cigarette/Vaping Use Never Used 07/14/23 10:21 PHQ-9: PHQ-9 Score PHQ-9: Total score 4 07/14/23 10:39 Depression Screening Interpretation: Positive Depression Screening Follow-up: Existing condition and In treatment Thrive Assessment: Date of Thrive Assessment Date Thrive assessed 07/14/23 07/14/23 10:21 Currently or been in a relationship where the following occur: no concerns reported Const General: No confusion Orientation/consciousness: patient oriented x3 and No confusion HENMT Head: Yes normal to inspection, Yes normocephalic and Yes atraumatic Ears: external ears normal Eyes General: appearance normal, both eyes and all related structures Eyelids: Yes eyelids normal Conjunctivae: conjunctivae normal Neck Neck: Yes normal visual inspection and Yes supple Resp Effort & Inspection: normal respiratory effort Auscultation: clear to auscultation bilaterally Cardio Jugular venous distension: no JVD Rate: regular rate Rhythm: regular rhythm Heart sounds: S1 normal heart sound present and S2 normal heart sound present GI Inspection: Yes normal to inspection Palpation (GI): Soft to palpation and nontender Auscultation: normal bowel sounds Skin General skin exam: no rashes or lesions noted Neuro General: patient oriented x3, no focal motor deficits and No confusion Extrem General: Yes full ROM Psych Appearance: grossly normal Assessment and Plan Assessment & Plan (1) Physical exam: Code(s): Z00.00 - Encounter for general adult medical examination without abnormal findings Plan: Repeat in a year. (2) Mild recurrent major depression: Code(s): F33.0 - Major depressive disorder, recurrent, mild Plan: Continue bupropion. Orders: Orders Lipid Panel Today E78.5 - Hyperlipidemia, unspecified Comprehensive [place]. Panel Fast Today Z00.00 - Encounter for general adult medical examination without abnormal findings Referrals Open Access Screening Colonoscopy Referral Z12.11 - Encounter for screening for malignant neoplasm of colon Medications: New cholestyramine (with sugar) 4 gram administer w/meal; avoid other meds within 1hr before or 4-6hr after dose 4 grams PO DAILY PRN 378 grams 3RF diarrhea 30 days Coding Level of Care Code Est Pt Prev Care 40-64y(66995) Diagnoses Physical exam Z00.00 Mild recurrent major depression F33.0 Additional Codes DOUG-7 Assessment Billing - DOUG-7 Assessment Tool: DOUG-7 Assessment 09002 ([id number]) Time Spent (min) 33
[2023-07-14 10:14] VITALS: BP 132/80; BMI 32.7
== END 2023-07-14 10:49 | disposition home or self-care (01) ==
PROVIDERS: Visit Provider Internal Medicine
DX: Z00.00 Encounter for general adult medical examination without abnormal findings (principal); F33.0 Major depressive disorder, recurrent, mild
CPT/HCPCS: 96127; 99397

== ENCOUNTER 2023-11-28 10:27 | Outpatient (REF) | payer OTHER, SELFPAY | END 2023-11-28 10:28 | disposition home or self-care (01) | LOC: HO.LAB 10:27 | PROVIDERS: Visit Provider Advanced Practice Midwife | DX: Z01.419 Encounter for gynecological examination (general) (routine) without abnormal findings (principal); N95.0 Postmenopausal bleeding; R35.0 Frequency of micturition; R31.9 Hematuria, unspecified | CPT/HCPCS: 87086 ==

== ENCOUNTER 2023-11-28 10:27 | Outpatient (AMB) | payer OTHER, SELFPAY ==
--- NOTE | 2023-11-28 10:31 | MHC.OFFVIS ---
Vital Signs 11/28/23 10:34 Height 5 ft 8 in Weight 218 lb BMI 33.1 BP 126/82 Intake Visit Reasons: Annual/DO NOT RS Intake Note: c/o of frequent urination Newspaper Manager Required: Yes Newspaper Manager Language: Web Content Manager Services: Newspaper Manager Present Newspaper Manager Name: Donna CORTEZ Information Interpreted: non-clinical & clinical Invasive Cardiovascular Technologist: Invasive Cardiovascular Technologist Present (Donna CORTEZ) Accompanied by: Self / Same As Patient Allergies aspirin [ASA] Allergy (Intermediate, Verified 11/28/23 10:34) PALPITATIONS Penicillins [PENICILLINS] Allergy (Intermediate, Verified 11/28/23 10:34) RASH topiramate Adverse Reaction (Intermediate, Verified 11/28/23 10:34) headache HPI Comments Details: She is a postmenopausal woman 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 She is doing well with concerns: low back pain, frequency of urination for several weeks. 3+ blood in urine today. She denies any vaginal bleeding. Attempting to eat a healthy diet with calcium and vitamin D and stays active with exercise. Currently not sexually active in 7 years. Denies any vaginal dryness or irritation. Last pap smear; 2022. Last mammogram; 2023. Colonoscopy is not UTD. Denies any family history of ovarian or colon cancer. Family history of breast cancer sister. [facility] Medical History Severe obesity (BMI 35.0-35.9 with comorbidity) Physical exam Effusion, left knee Severe obesity with body mass index (BMI) of 36.0 to 36.9 with serious comorbidity Mild recurrent major depression Left knee pain Lumbar degenerative disc disease Anxiety Mixed hyperlipidemia Essential hypertension Surgical History History of tubal ligation History of laparoscopic cholecystectomy Family History Father Myocardial infarction Alcoholism Mother Stroke Diabetes Hypertension Sister Breast cancer Son No problems noted. Family/Other FH: mental illness Mental health disorder Social History Housing: House Alcohol intake: never Patient Tobacco Use Status: Never used Tobacco e-Cigarette/Vaping Use: Never Used Second Hand Smoke Exposure: No service: No Current occupational status: unemployed Cognitive needs: Yes Hearing needs: No Vision needs: Yes Female Reproductive History Menstrual control method: permanent sterilization Menopause type: natural Total pregnancies: 4 Full term: 4 Number of Living Children: 4 Date of last pap smear: 09/11/22 Date of Mammogram: 07/04/23 Date of last Bone Density Screenin07/19/22 Review of Systems Const All systems reviewed & are unremarkable except as noted in HPI and below Reports as per HPI Eyes Reports no additional complaints ENT Reports no additional complaints Card Reports no additional complaints Resp Reports no additional complaints GI Reports as per HPI and Reports no additional complaints Reports as per HPI Musc Reports no additional complaints Skin/Breast Reports as per HPI Neuro Reports no additional complaints Psych Reports no additional complaints Endo Reports no additional complaints Shamir/Lymph Reports no additional complaints Aller/Immun Reports no additional complaints Physical Exam Const General: cooperative, healthy appearing, no acute distress, well developed and alert Orientation/consciousness: patient oriented x3 HEENT Head: Yes normal to inspection Eyes General: appearance normal, both eyes and all related structures Neck Neck: Yes normal visual inspection Thyroid: Thyroid normal Chest Chest palpation & inspection: normal inspection of the chest and other (no puckering, dimpling, peau de orange, retraction, discharge, masses) Breast/axilla inspection: normal inspection of the breasts Breast/axilla palpation: normal palpation of the breasts Resp Effort & Inspection: normal respiratory effort GI Inspection: Yes normal to inspection and Yes obesity Palpation (GI): Soft to palpation Rectal Exam - Female: deferred General: Yes bladder normal to palpation External Female Exam: normal external appearance and normal appearance of the urethra Speculum Exam - Vagina: normal appearance of the vagina, normal palpation, normal vaginal discharge, vagina atrophic and vaginal bleeding Speculum Exam - Cervix: normal appearance of the cervix and normal palpation Bimanual exam- vagina & uterus: normal bimanual exam, normal palpation, uterine size normal, bladder normal to palpation, normal palpation and non-tender Bimanual Exam- Adnexa, other: no masses (Limited exam with body habitus) OB/external & speculum: vaginal bleeding Skin General skin exam: no rashes or lesions noted Rashes: no rashes Neuro General: patient oriented x3 Cognition (Neuro): normal cognition Extrem General: Yes normal to inspection Psych Attitude: cooperative Thought process: Normal thought process present Assessment & Plan Assessment & Plan (1) Encounter for well woman exam with routine gynecological exam: Code(s): Z01.419 - Encounter for gynecological examination (general) (routine) without abnormal findings Category: Medical (2) Postmenopausal bleeding: Code(s): N95.0 - Postmenopausal bleeding (3) Frequency of urination: Code(s): R35.0 - Frequency of micturition (4) Hematuria: Code(s): R31.9 - Hematuria, unspecified Qualifiers: Hematuria type: unspecified type Qualified Code(s): R31.9 - Hematuria, unspecified Plan Discussed: Vaginal bleeding noted on her exam today. Current recommendations for pap smears per ASCCP guidelines. Breast awareness, periodic self breast exams and yearly mammogram. Maintain a healthy lifestyle, well balanced diet including Calcium 1,200 mg and Vitamin D 600 IU daily, and routine exercise. Urine culture sent. Postmenopausal bleeding workup: Ultrasound and endometrial biopsy, anticipatory guidance for procedure explained. Appointment follow up so will be scheduled today. Colonoscopy-discussed with Dr. Doan for scheduling-referral. All of her questions and concerns were addressed to the best of my ability and shared decision making. She is agreeable to the plan of care. Patient verbalizes understanding and agrees to the plan of care. She was given opportunity to ask questions and all questions were answered to the best of my ability. RTO in 1 year for annual manager beverage exam. This note is constructed using voice recognition software. While every effort has been made to ensure accuracy, boarding machine operator errors may have been included. Orders: Orders Urine Culture Today N95.0 - Postmenopausal bleeding, R31.29 - Other microscopic hematuria AMB Urinalysis Dipstick Today N95.0 - Postmenopausal bleeding, R31.29 - Other microscopic hematuria US pelvic and transvaginal Today N95.0 - Postmenopausal bleeding Coding Level of Care Code Est Pt Prev Care >65y(89259) Diagnoses Encounter for well woman exam with routine gynecological exam Z01.419 Postmenopausal bleeding N95.0 Frequency of urination R35.0 Hematuria, unspecified type R31.9 Hematuria type: unspecified type
[2023-11-28 10:34] VITALS: BP 126/82; BMI 33.1
== END 2023-11-28 11:16 | disposition home or self-care (01) ==
PROVIDERS: Visit Provider Advanced Practice Midwife
DX: Z01.419 Encounter for gynecological examination (general) (routine) without abnormal findings (principal); N95.0 Postmenopausal bleeding; R35.0 Frequency of micturition; R31.9 Hematuria, unspecified
CPT/HCPCS: 99397

== ENCOUNTER 2023-12-17 11:08 | Outpatient (REF) | payer OTHER, SELFPAY ==
--- NOTE | ~2023-12-17 | US_ITS ---
EXAMINATION: US PELVIS CLINICAL INFORMATION: Postmenopausal bleeding, per patient, tiny bleeding postvaginal exam in office. COMPARISON: None available. TECHNIQUE: Ultrasound of the pelvis is performed using both transabdominal and transvaginal transducers along with Doppler. Transvaginal imaging is performed due to inadequate visualization transabdominally. FINDINGS: The uterus is anteverted and measures 7.2 x 3.6 x 4.2 cm. Endometrium is markedly abnormal in appearance with thickness of 20 mm and complex heterogeneous appearance with areas of vascularity as well as anechoic areas. Possible 1.5 x 1.1 x 0.9 cm endometrial polyp and/or complex mobile material/hemorrhage within the endometrial cavity. Evaluation limited due to bowel gas. Nabothian cysts. Bilateral ovaries not visualized. No significant free fluid. US/US pelvic and transvaginal IMPRESSION: Endometrium is markedly abnormal in appearance with thickness of 20 mm and complex heterogeneous appearance with areas of vascularity as well as anechoic areas. Possible 1.5 x 1.1 x 0.9 cm endometrial polyp and/or complex mobile material/hemorrhage within the endometrial cavity. Evaluation limited due to bowel gas. Gynecologic consultation recommended to determine further management including possible biopsy. This study was presented to tx December for interpretation. PSA staff will provide results to referring provider at this time.
== END 2023-12-17 11:09 | disposition home or self-care (01) ==
LOC: HO.US 11:08
PROVIDERS: PCP Internal Medicine; Visit Provider Advanced Practice Midwife
DX: N95.0 Postmenopausal bleeding (principal)
CPT/HCPCS: 76830; 76856

== ENCOUNTER 2024-01-09 11:16 | Outpatient (AMB) | payer OTHER, SELFPAY ==
--- NOTE | 2024-01-09 11:21 | A.OFFVIS_ITS ---
Intake Visit Reasons: US follow up Yarn Comber Required: Yes Yarn Comber Language: Feather Washer Name: Donna Supervisor Cutting And Sewing Room: Supervisor Cutting And Sewing Room Present Allergies aspirin [ASA] Allergy (Intermediate, Verified 11/28/23 10:34) PALPITATIONS Penicillins [PENICILLINS] Allergy (Intermediate, Verified 11/28/23 10:34) RASH topiramate Adverse Reaction (Intermediate, Verified 11/28/23 10:34) headache Is last menstrual period known: Yes HPI Comments Details: Ultrasound follow up test results with her daughter Modesta. History of postmenopausal bleeding. [facility] Medical History Severe obesity (BMI 35.0-35.9 with comorbidity) Physical exam Effusion, left knee Severe obesity with body mass index (BMI) of 36.0 to 36.9 with serious comorbidity Mild recurrent major depression Left knee pain Lumbar degenerative disc disease Anxiety Mixed hyperlipidemia Essential hypertension Surgical History History of tubal ligation History of laparoscopic cholecystectomy Family History Father Myocardial infarction Alcoholism Mother Stroke Diabetes Hypertension Sister Breast cancer Son No problems noted. Family/Other FH: mental illness Mental health disorder Social History Housing: House Alcohol intake: never Patient Tobacco Use Status: Never used Tobacco e-Cigarette/Vaping Use: Never Used Second Hand Smoke Exposure: No service: No Current occupational status: unemployed Cognitive needs: Yes Hearing needs: No Vision needs: Yes Review of Systems Const All systems reviewed & are unremarkable except as noted in HPI and below Endo Reports no additional complaints Physical Exam Const General: cooperative, healthy appearing and no acute distress Psych Appearance: well kempt Attitude: cooperative Thought process: Normal thought process present Results Reviewed Results Reviewed: [address] [address] Ultrasound Report Signed with Yolanda Patient: Sanam Urbano MR#: [id number] : 1960 Acct:[id number] Age/Sex: 63 / F ADM Date: 12/17/23 Loc: HO.US Attending Dr: Tamie Antonio CNM Ordering Physician: Tamie Antonio CNM Date of Service: 12/17/23 Procedure(s): US pelvic and transvaginal Accession Number(s): [id number] cc: Tamie Antonio CNM; Olya Powers MD~ ADDENDUMResults Acknowledgement: Lea Felix PSA (01/07/2024 12:19:12): Results confirmed with Olya Wolf M.D. at 11:43 AM. Addendum Dictated By: Mirian Lopez MD Addendum Signed By: <Electronically signed by Mirian Lopez MD in OV> 01/07/24 1239 Addendum Cosigned By: DD/ /01/1111 TD/TT: / EXAMINATION: US PELVIS CLINICAL INFORMATION: Postmenopausal bleeding, per patient, tiny bleeding postvaginal exam in office. COMPARISON: None available. TECHNIQUE: Ultrasound of the pelvis is performed using both transabdominal and transvaginal transducers along with Doppler. Transvaginal imaging is performed due to inadequate visualization transabdominally. FINDINGS: The uterus is anteverted and measures 7.2 x 3.6 x 4.2 cm. Endometrium is markedly abnormal in appearance with thickness of 20 mm and complex heterogeneous appearance with areas of vascularity as well as anechoic areas. Possible 1.5 x 1.1 x 0.9 cm endometrial polyp and/or complex mobile material/hemorrhage within the endometrial cavity. Evaluation limited due to bowel gas. Nabothian cysts. Bilateral ovaries not visualized. No significant free fluid. US/US pelvic and transvaginal IMPRESSION: Endometrium is markedly abnormal in appearance with thickness of 20 mm and complex heterogeneous appearance with areas of vascularity as well as anechoic areas. Possible 1.5 x 1.1 x 0.9 cm endometrial polyp and/or complex mobile material/hemorrhage within the endometrial cavity. Evaluation limited due to bowel gas. Gynecologic consultation recommended to determine further management including possible biopsy. This study was presented to [facility] December for interpretation. [facility] staff will provide results to referring provider at this time. Dictated By: Mirian Lopez MD Signed By: <Electronically signed by Mirian Lopez MD in OV> 01/05/24 1219 DD/ 1151 TD/TT: Channel Manager: Assessment & Plan Assessment & Plan (1) Encounter to discuss test results: Code(s): Z71.2 - Person consulting for explanation of examination or test findings (2) Postmenopausal bleeding: Code(s): N95.0 - Postmenopausal bleeding Plan Discussed: Ultrasound findings, recommended due to possible endometrial polyp or mass to have an hysteroscopy. All of her questions and concerns were addressed to the best of my ability and shared decision making. She is agreeable to the plan of care. Appointment to be made today for her hysteroscopy. This note is constructed using voice recognition software. While every effort has been made to ensure accuracy, senior mechanical project manager errors may have been included. Coding Level of Care Code Est Pt Level 3 (76682) Diagnoses Encounter to discuss test results Z71.2 Postmenopausal bleeding N95.0
== END 2024-01-09 11:48 | disposition home or self-care (01) ==
PROVIDERS: PCP Internal Medicine; Visit Provider Advanced Practice Midwife
DX: Z71.2 Person consulting for explanation of examination or test findings (principal); N95.0 Postmenopausal bleeding
CPT/HCPCS: 99213

== ENCOUNTER → 2024-01-09 11:16 | Outpatient (BNVA) | payer OTHER, SELFPAY | PROVIDERS: PCP Internal Medicine; Visit Provider Advanced Practice Midwife | DX: N95.0 Postmenopausal bleeding (principal); Z71.2 Person consulting for explanation of examination or test findings | CPT/HCPCS: 99212 ==

== ENCOUNTER 2024-01-15 13:19 | Outpatient (AMB) | payer OTHER, SELFPAY ==
[2024-01-15 13:27] VITALS: BP 136/70; BMI 32.8
--- NOTE | 2024-01-15 13:27 | A.OFFVIS_ITS ---
Vital Signs 01/15/24 13:27 Height 5 ft 8 in Weight 216 lb 0.848 oz BMI 32.8 BP 136/70 Intake Visit Reasons: pre op Compliance Professional Required: Yes Compliance Professional Language: Floor Nurse Services: Compliance Professional Present (in person) Compliance Professional Name: Donna CORTEZ Information Interpreted: non-clinical & clinical Barrel Planer: Barrel Planer Present Accompanied by: Daughter Allergies aspirin [ASA] Allergy (Intermediate, Verified 01/15/24 13:30) PALPITATIONS Penicillins [PENICILLINS] Allergy (Intermediate, Verified 01/15/24 13:30) RASH topiramate Adverse Reaction (Intermediate, Verified 01/15/24 13:30) headache Is last menstrual period known: Yes Last menstrual period: 04/06/20 Post menopausal: No Patient : No Do you need a note to return to daycare/school/sports/work: Yes (for surgery on friday) HPI Comments Details: Presenting referred from Tamie Antonio regarding postmenopausal bleeding and abnormal endometrium on ultrasound. Pelvic ultrasound showed the following: The uterus is anteverted and measures 7.2 x 3.6 x 4.2 cm. Endometrium is markedly abnormal in appearance with thickness of 20 mm and complex heterogeneous appearance with areas of vascularity as well as anechoic areas. Possible 1.5 x 1.1 x 0.9 cm endometrial polyp and/or complex mobile material/hemorrhage within the endometrial cavity. Evaluation limited due to bowel gas. Nabothian cysts. Bilateral ovaries not visualized. No significant free fluid. Last co testing in 09/29 was negative [facility] Medical History Severe obesity (BMI 35.0-35.9 with comorbidity) Physical exam Effusion, left knee Severe obesity with body mass index (BMI) of 36.0 to 36.9 with serious comorbidity Mild recurrent major depression Left knee pain Lumbar degenerative disc disease Anxiety Mixed hyperlipidemia Essential hypertension Surgical History History of tubal ligation History of laparoscopic cholecystectomy Family History Father Myocardial infarction Alcoholism Mother Stroke Diabetes Hypertension Sister Breast cancer Son No problems noted. Family/Other FH: mental illness Mental health disorder Social History Housing: House Alcohol intake: never Patient Tobacco Use Status: Never used Tobacco e-Cigarette/Vaping Use: Never Used Second Hand Smoke Exposure: No service: No Current occupational status: unemployed Cognitive needs: Yes Hearing needs: No Vision needs: Yes Female Reproductive History Menstrual Date of last menstrual period: 04/06/20 Total pregnancies: 2 Full term: 2 Review of Systems Card Reports as per HPI and Reports no additional complaints Resp Reports as per HPI and Reports no additional complaints GI Reports as per HPI and Reports no additional complaints Reports as per HPI Physical Exam Vital Signs: Last Vital Signs BP 136/70 01/15/24 13:27 BMI result Body Mass Index 32.8 Const General: cooperative, healthy appearing and comfortable Resp Effort & Inspection: normal respiratory effort Auscultation: clear to auscultation bilaterally Percussion: percussion normal Cardio Palpation: normal PMI Rate: regular rate Rhythm: regular rhythm Heart sounds: no murmurs and no rubs Peripheral pulses: Peripheral pulses 2+ throughout GI Inspection: Yes normal to inspection Palpation (GI): Soft to palpation, nontender, no guarding, not rigid and No hepatosplenomegaly present Percussion: Yes normal to percussion Auscultation: normal bowel sounds Rectal Exam - Female: deferred Assessment & Plan Assessment & Plan (1) Postmenopausal bleeding: Comment: Abnormal endometrium by ultrasound possible polyp Code(s): N95.0 - Postmenopausal bleeding Category: Medical Plan: Discussed with the patient the pelvic ultrasound findings, the endometrial stripe thickenss measured by ultrasound was more than 4mm. The negative predictive value, positive predictive value, Sensitivity, specificity of using ultrasound measurement of endometrial stripe to detecting endometrial pathology including hyperplasia , polyp or cancer were discussed with the patient. Recommended to the patient that the next step is an endometrial sampling via hysteroscopy D&C possible polypectomy versus endometrial biopsy to r/o endometrial pathology including hyperplasia or cancer. All the pros and cons risks and benefits of each approach were discussed with the patient, endometrial biopsy being less invasive, office procedure with less sensitivity and inability diagnose a polyp and removal versus hysteroscopy done under anesthesia more invasive more sensitive to endometrial cancer and possibility of diagnosing and endometrial polyp with the possibility of polypectomy. All questions were answered pt verbalized understanding and decided to proceed with hysteroscopy D&C possible polypectomy/myomectomy. Discussed with the patient the procedure , all benefits and risks including but not limited to inability to complete the procedure , insufficient endometrial tissue for a complete evaluation of the endometrial cavity , bleeding, i nfection, possible need for blood transfusion with all its risk ( HIV,syphilis, Hepatitis, anaphylaxis shock, others..), injury to bladder, rectum, possible need for laparoscopy/laparotomy or hysterectomy. The patient verbalized understanding and signed the consent. Instructions given the patient to stay NPO after midnight the day prior to the procedure and to take only the specific medication (s) discussed the morning of the surgical procedure and to schedule a 2 week postoperative appointment Coding Level of Care Code Est Pt Level 3 (24214) Diagnoses Postmenopausal bleeding N95.0
== END 2024-01-15 13:51 | disposition home or self-care (01) ==
LOC: HO.HWS 13:19
PROVIDERS: PCP Internal Medicine; Visit Provider Obstetrics & Gynecology
DX: N95.0 Postmenopausal bleeding (principal)
CPT/HCPCS: 99213

== ENCOUNTER → 2024-01-15 13:19 | Outpatient (BNVA) | payer OTHER, SELFPAY | PROVIDERS: PCP Internal Medicine; Visit Provider Obstetrics & Gynecology | DX: Z01.818 Encounter for other preprocedural examination (principal); N95.0 Postmenopausal bleeding | CPT/HCPCS: 99212 ==

== ENCOUNTER 2024-01-16 10:19 | Day surgery (SDC) | payer OTHER, SELFPAY ==
[2024-01-16] VITALS (7 sets, daily range): BP systolic 132–176; BP diastolic 66–82; PULSE 63–75; RESP 17–18; TEMP 36.1–36.8; O2SAT 96–99; BMI 33.0
--- NOTE | 2024-01-16 08:38 | P.CONAN_ITS ---
[facility] Active Problems Active Problems: All Active Problems Postmenopausal bleeding (Acute) Encounter for well woman exam with routine gynecological exam (Acute) Blurry vision (Acute) Screening for cervical cancer (Acute) Common bile duct dilatation (Acute) Left upper quadrant abdominal pain (Acute) Physical exam (Acute) Effusion, left knee (Acute) Mild recurrent major depression (Acute) Left knee pain (Acute) Osteoarthritis of knees, bilateral (Acute) Depression (Acute) Lumbar degenerative disc disease (Acute) Anxiety (Acute) Mixed hyperlipidemia (Acute) Essential hypertension (Acute) Past Medical History Medical History Severe obesity (BMI 35.0-35.9 with comorbidity) Physical exam Effusion, left knee Severe obesity with body mass index (BMI) of 36.0 to 36.9 with serious comorbidity Mild recurrent major depression Left knee pain Lumbar degenerative disc disease Anxiety Mixed hyperlipidemia Essential hypertension Patient : Yes Family History Family History Father Myocardial infarction Alcoholism Mother Stroke Diabetes Hypertension Sister Breast cancer Son No problems noted. Family/Other FH: mental illness Mental health disorder Surgical History Surgical History History of tubal ligation History of laparoscopic cholecystectomy History of Problems with Anesthesia: No Social History Social History Housing: House Alcohol intake: never Patient Tobacco Use Status: Never used Tobacco e-Cigarette/Vaping Use: Never Used Second Hand Smoke Exposure: No service: No Current occupational status: unemployed Cognitive needs: Yes Hearing needs: No Vision needs: Yes Meds Allergies Allergy/AdvReac Type Severity Reaction Status Date / Time aspirin [ASA] Allergy Intermediate PALPITATION Verified 01/15/24 13:30 S Penicillins [PENICILLINS] Allergy Intermediate RASH Verified 01/15/24 13:30 topiramate AdvReac Intermediate headache Verified 01/15/24 13:30 Home Medications ?Medication ?Instructions ?Recorded ?Confirmed ?Last Taken ?Type bupropion HCl 300 mg 24 hr tablet, 300 mg PO QAM 05/31/20 01/16/24 Unknown History extended release acetaminophen 650 mg 1,300 mg PO Q12H 11/22/21 01/16/24 Unknown History tablet,extended release (Tylenol Arthritis Pain) Exam Airway Mallampati Class: II TM Dist: >3cm Neck ROM: Full Loose/Missing/Broken Teeth: No Heart: RRR Lungs: CTA Assessment and Plan Assessment Anesthesia Assessment: Anesthesia Plan Discussed and Chart Reviewed Final Anesthetic Review History of Problems with Anesthesia: No NPO: Yes ASA Class: II Final Preanesthetic Review: Meds/Allgs Chart Reviewed, Consent Obtained/Reviewed and Anes Risks/Benef Reviewed Patient Risk: Low Procedure Risk: Low Anesthetic Plan Anesthetic Plan: GA Disposition: Standard PACU
--- NOTE | 2024-01-16 10:47 | MHC.SHP ---
Pre-Procedural Eval Section A - 24 Hr Update-Section A only Date of Service: 01/16/24 The patient is an INPATIENT: No Changes since office visit: No Cold of Flu in the past 2 weeks, No New Medical Problems, No Changes in Medication and No Patient answered all questions The patient has been examined within 24 hours of the surgical procedure. The History & Physical has been completed within 30 days and I have reviewed it.: Yes Section B - Complete if H&P > 30 days Chief Complaint: Postmenopausal bleeding Allergies: Allergies Allergy/AdvReac Type Severity Reaction Status Date / Time aspirin [ASA] Allergy Intermediate PALPITATION Verified 01/15/24 13:30 S Penicillins [PENICILLINS] Allergy Intermediate RASH Verified 01/15/24 13:30 topiramate AdvReac Intermediate headache Verified 01/15/24 13:30 Plan Diagnosis/Plan: Unchanged I have reviewed the history and physical and performed a pertinent physical examination on my patient. No changes have occurred unless specified. Time Spent With Patient Time: Total time managing care of this patient today ____ minutes.
[2024-01-16] MEDS: Lactated Ringers 1,000 ML 100 ML IVCONT (11:11)
--- NOTE | 2024-01-16 11:46 | PM.OP ---
Brief Operative Note Date of Service: 01/16/24 Pre-op diagnosis: Postmenopausal bleeding, normal endometrium by ultrasound Post-op diagnosis: same (Large endometrial polyp filling up the whole cavity) Procedure: Hysteroscopy D&C, Polypectomy Surgeon: Chidi Encarnacion MD Anesthesia: GLMA Was an Apartment Property Manager used for this Procedure?: No Estimated blood loss (mL): 0 Pathology: other (Endometrial Scrapping. Polyp) Condition: stable Disposition: PACU
--- NOTE | 2024-01-16 11:47 | W.PM.OPN ---
Operative Note Operative Note Date of Service: 01/16/24 Narrative: Preop Diagnosis: Postmenopausal bleeding, abnormal thickened endometrium by ultra Operation: Diagnostic Hysteroscopy, Dilataion & Curettage and polypectomy Post Op Diagnosis: Large Endometrial Polyp filling up the whole cavity QBL: Minimal Anesthesia: GLMA Surgeon: Chidi Encarnacion MD Automotive Sales Executive: None Complication: None Pathology: Endometrial Scrapings, Endometrial polyp Procedure: The patient was put in the dorsal lithotomy position, scrubbed, and draped in the usual manner. A sterile speculum was inserted in the patient's vagina. The anterior lip of the cervix was grasped with a single tooth tenaculum. The cervix was dilated up to 5 mm, then the scope was inserted in the patient's uterus. Inspection revealed a large endometrial polyp filling up the whole endometrial cavity. The Myosure Reach device was used; it was introduced through the operative channel and polypectomy done with no complications. The scope was then taken out from the uterine cavity, sharp curettings was carried on with minimal to moderate amount of tissues retrieved. At the end of the procedure, all instruments were taken out of the patient uterine and vaginal cavity. The single tooth tenaculum was removed and homeostasis was assured using pressure,. The patient tolerated the procedure well and was transferred to the PACU in a stable condition.
== END 2024-01-16 13:14 | disposition home or self-care (01) ==
PROVIDERS: PCP Internal Medicine; Visit Provider Obstetrics & Gynecology
PROC: 0UDB8ZZ Extraction of Endometrium, Via Natural or Artificial Opening Endoscopic (ICD-10-PCS; CPT 58558; principal; 2024-01-16 10:30)
DX: N95.0 Postmenopausal bleeding (principal); N84.0 Polyp of corpus uteri; N88.8 Other specified noninflammatory disorders of cervix uteri; I10 Essential (primary) hypertension; E78.2 Mixed hyperlipidemia; F33.0 Major depressive disorder, recurrent, mild; E66.01 Morbid (severe) obesity due to excess calories; Z68.32 Body mass index [BMI] 32.0-32.9, adult; Z88.0 Allergy status to penicillin; Z88.8 Allergy status to other drugs, medicaments and biological substances; Z56.0 Unemployment, unspecified
CPT/HCPCS: 58558; 88305; J1100; J2250; J2405; J2704; J3010

== ENCOUNTER → 2024-01-16 10:19 | Outpatient (BNV) | payer OTHER, SELFPAY | PROVIDERS: PCP Internal Medicine; Visit Provider Obstetrics & Gynecology | DX: N84.0 Polyp of corpus uteri (principal); N95.0 Postmenopausal bleeding | CPT/HCPCS: 58558 ==

== ENCOUNTER 2024-01-26 13:45 | Outpatient (AMB) | payer OTHER, SELFPAY ==
[2024-01-26 14:19] VITALS: BMI 33.1
--- NOTE | 2024-01-26 14:19 | A.OFFVIS_ITS ---
Vital Signs 01/26/24 14:19 Height 5 ft 8 in Weight 218 lb BMI 33.1 Intake Visit Reasons: post op Powerplant Operator Required: Yes Powerplant Operator Language: Molder Floor Services: Powerplant Operator Present (in person) Powerplant Operator Name: Donna CORTEZ Information Interpreted: non-clinical & clinical Accompanied by: Daughter Allergies aspirin [ASA] Allergy (Intermediate, Verified 01/26/24 14:20) PALPITATIONS Penicillins [PENICILLINS] Allergy (Intermediate, Verified 01/26/24 14:20) RASH topiramate Adverse Reaction (Intermediate, Verified 01/26/24 14:20) headache Post menopausal: Yes HPI Comments Details: The patient is presenting post hysteroscopy D&C no complaints minimal vaginal bleeding no feverishness chills or abdominal pain. The pathology showed the following: A. Endometrial polyp, resection: Fragments of benign endometrial polyp with tubal and focal squamous metaplasia; no atypia or carcinoma (see comment). B. Endometrium, curettage: Strips of benign atrophic endometrium, benign endocervical glandular epithelium, and benign squamous epithelium; no atypia or carcinoma. Comment: (A): Squamous metaplasia may be seen in benign or neoplastic processes. No dedrick plasia is seen in this specimen. Continued clinical follow-up is warranted [facility] Medical History Severe obesity (BMI 35.0-35.9 with comorbidity) Physical exam Effusion, left knee Severe obesity with body mass index (BMI) of 36.0 to 36.9 with serious comorbidity Mild recurrent major depression Left knee pain Lumbar degenerative disc disease Anxiety Mixed hyperlipidemia Essential hypertension Surgical History History of tubal ligation History of laparoscopic cholecystectomy Family History Father Myocardial infarction Alcoholism Mother Stroke Diabetes Hypertension Sister Breast cancer Son No problems noted. Family/Other FH: mental illness Mental health disorder Social History Housing: House Alcohol intake: never Patient Tobacco Use Status: Never used Tobacco e-Cigarette/Vaping Use: Never Used Second Hand Smoke Exposure: No service: No Current occupational status: unemployed Cognitive needs: Yes Hearing needs: No Vision needs: Yes Review of Systems Const All systems reviewed & are unremarkable except as noted in HPI and below Reports as per HPI and Reports no additional complaints GI Reports no additional complaints Reports no additional complaints Physical Exam Vital Signs: BMI result Body Mass Index 33.1 Assessment & Plan Assessment & Plan (1) Postmenopausal bleeding: Comment: Polyp with squamous metaplasia Inactive endometrium pathology Code(s): N95.0 - Postmenopausal bleeding Category: Medical Plan: Discussed with the patient the intraoperative findings endometrial polyp with squamous metaplasia with no evidence of atypia or malignancy was atrophic endometrium since squamous metaplasia could be associated with hyperplasia or malignancy, discussed with the patient sensitivity, specificity, false-positive false-negative rate D and C to rule out endometrial pathology, recommended to the patient to call if any be vaginal bleeding recurs the proceed with endometrial sampling to rule out endometrial pathology and to schedule a 3 months repeat endometrial biopsy to rule out endometrial pathology including endometrial hyperplasia or malignancy. All questions answered, the patient verbalized understanding and agreed with the plan Coding Level of Care Code Est Pt Level 3 (01591) Diagnoses Postmenopausal bleeding N95.0
== END 2024-01-26 15:35 | disposition home or self-care (01) ==
LOC: HO.HWS 13:45
PROVIDERS: PCP Internal Medicine; Visit Provider Obstetrics & Gynecology
DX: N95.0 Postmenopausal bleeding (principal)
CPT/HCPCS: 99213

== ENCOUNTER → 2024-01-26 13:45 | Outpatient (BNVA) | payer OTHER, SELFPAY | PROVIDERS: PCP Internal Medicine; Visit Provider Obstetrics & Gynecology | DX: N95.0 Postmenopausal bleeding (principal) | CPT/HCPCS: 99212 ==

== ENCOUNTER 2024-03-20 09:09 | Outpatient (REF) | payer OTHER, SELFPAY ==
[2024-03-20 10:08] LABS: Alanine Aminotransferase 22 U/L (0-31); Albumin Level 4.3 g/dL (3.5-5.0); Alkaline Phosphatase 58 U/L (39-117); Anion Gap 13 (12-20); Aspartate Amino Transferase 16 U/L (5-31); Bilirubin Total 0.4 mg/dL (0.0-1.0); Blood Urea Nitrogen 17 mg/dL (9-16); Calcium 9.8 mg/dL (8.4-10.2); Carbon Dioxide 30 mmol/L (22-29); Chloride 102 mmol/L (96-108); Cholesterol 240 mg/dL (<200); Estimated Glomerular Filt Rate > 60; Glucose Fasting 106 mg/dL (60-99); HDL Cholesterol 48 mg/dL (>40); LDL Cholesterol Calculated 140 mg/dL (<100); Potassium 3.5 mmol/L (3.3-5.1); Sodium 141 mmol/L (135-145); Total Protein 7.7 g/dL (6.5-8.0); Triglycerides 263 mg/dL (<150)
== END 2024-03-20 09:10 | disposition home or self-care (01) ==
LOC: HO.LAB 09:09
PROVIDERS: PCP Internal Medicine; Visit Provider Internal Medicine
DX: Z00.00 Encounter for general adult medical examination without abnormal findings (principal); E78.5 Hyperlipidemia, unspecified
CPT/HCPCS: 36415; 80053; 80061

== ENCOUNTER 2024-03-25 16:12 | Outpatient (AMB) | payer OTHER, SELFPAY ==
[2024-03-25 16:24] VITALS: BP 150/70; BMI 33.6
--- NOTE | 2024-03-25 16:24 | A.OFFPC_ITS ---
Vital Signs 03/25/24 16:24 Height 5 ft 8 in Weight 221 lb BMI 33.6 BP 150/70 H Blood Pressure Location Lt brachial Position Sitting Intake Visit Reasons: bp Intake Note: Patient here for a follow up BP Awnings Mechanic Required: No Accompanied by: Daughter Allergies aspirin [ASA] Allergy (Intermediate, Verified 03/25/24 16:53) PALPITATIONS Penicillins [PENICILLINS] Allergy (Intermediate, Verified 03/25/24 16:53) RASH topiramate Adverse Reaction (Intermediate, Verified 03/25/24 16:53) headache Medication List - Last Reconciled 03/25/24 by Olya Wolf MD acetaminophen ER (Tylenol Arthritis Pain) 1,300 mg PO Q12H amlodipine 10 mg PO DAILY 90 days atorvastatin 80 mg PO BEDTIME 90 days bupropion HCl XL 300 mg PO QAM chlorthalidone 50 mg PO DAILY 90 days cholecalciferol (vitamin D3) 50 mcg PO DAILY 90 days cholestyramine (with sugar) 4 gram 4 grams PO DAILY PRN 30 days clonazepam 0.5 mg PO BID PRN 10 days fenofibrate 54 mg PO DAILY 90 days ibuprofen 400 mg PO Q8H PRN 30 days lisinopril 40 mg PO DAILY 90 days Shower Chair As directed trazodone 100 mg (2 x 50 mg) PO BEDTIME PRN 90 days walker with seat and wheels Tobacco use date assessed: 07/14/23 Fall risk assessment: No Falls in past year Last assessed Fall Risk: 03/25/24 Dental Screening Dental Screen Date: 07/14/23 HPI HPI Comments History of Present Illness Details This is a 64-year-old female with hypertension, mixed hyperlipidemia, mild recurrent major depression and anxiety that comes today for follow-up on her conditions. Blood pressure elevated today and she did took her medications. Blood pressure will be recheck in 3 weeks by nurse navigator. Cholesterol and triglycerides has worsened because her diet has changed and dietary changes were advised. Depression and anxiety stable with medications and follow by Psychiatry. [facility] Medical History Severe obesity (BMI 35.0-35.9 with comorbidity) Physical exam Effusion, left knee Severe obesity with body mass index (BMI) of 36.0 to 36.9 with serious comorbidity Mild recurrent major depression Left knee pain Lumbar degenerative disc disease Anxiety Mixed hyperlipidemia Essential hypertension Surgical History History of tubal ligation History of laparoscopic cholecystectomy Family History Father Myocardial infarction Alcoholism Mother Stroke Diabetes Hypertension Sister Breast cancer Son No problems noted. Family/Other FH: mental illness Mental health disorder Social History Housing: House Alcohol intake: never Patient Tobacco Use Status: Never used Tobacco e-Cigarette/Vaping Use: Never Used Second Hand Smoke Exposure: No service: No Current occupational status: unemployed Cognitive needs: Yes Hearing needs: No Vision needs: Yes Questionnaire Thrive Questionnaire Date Thrive assessed: 07/14/23 DOUG-7 AMB Questionnaire DOUG-7 Date DOUG - 7 assessed: 07/14/23 Source: Developed by Drs. Teddy Weber, Mehreen Waterman, Scooter Ingram and colleagues, with an educational lady from [employer] Review of Systems Const All systems reviewed & are unremarkable except as noted in HPI and below Card Denies chest pain at rest, Denies chest pain with activity, Denies edema, Denies irregular heart rhythm, Denies claudication, Denies dyspnea, Denies dyspnea on exertion, Denies orthopnea, Denies paroxysmal nocturnal dyspnea and Denies slow heart rate Resp Denies cough, Denies dyspnea and Denies dyspnea on exertion Physical exam (Primary Care) Vital Signs: Last Vital Signs BP 150/70 H 03/25/24 16:24 Care Plan Goal for BP management: Was advised to follow a low-salt diet and low- fat diet Next steps: Blood pressure will be recheck in 3 weeks by nurse navigator. BMI result Body Mass Index 33.6 BMI Assessment/Plan discussion: High BMI High, discussed plan: lifestyle, weight reduction, dietary and physical activity Tobacco/Smoking Status: Tobacco use Status Tobacco use date assessed 07/14/23 03/25/24 16:25 Patient Tobacco Use Status Never used Tobacco 03/25/24 16:25 e-Cigarette/Vaping Use Never Used 03/25/24 16:25 Thrive Assessment: Date of Thrive Assessment Date Thrive assessed 07/14/23 03/25/24 16:25 Neck Neck: Yes normal visual inspection and Yes supple Resp Effort & Inspection: normal respiratory effort Auscultation: clear to auscultation bilaterally Cardio Jugular venous distension: no JVD Rate: regular rate Rhythm: regular rhythm Heart sounds: S1 normal heart sound present and S2 normal heart sound present Extrem General: Yes full ROM Office Procedures Flu Questionnaire Does the patient have a severe egg allergy?: No Does the patient have severe life threatening allergies?: No Does the patient have a fever or illness today?: No Has the patient ever had Guillain-Parlin Syndrome?: No Has the patient ever had any past reaction to a flu shot?: No Immunizations Fluarix Triv [id number] (PF) 45 mcg (15 mcg x 3)/0.5 mL IM syringe Performing Provider: Olya Wolf MD [facility] Administered by: JAVIER Kilgore on 03/25/24 17:11 Dose Route Admin Location Dispensed Lot Number Expiration Date [facility] [employer] 0.5 mL IM Left Deltoid 0.5 mL [id number] 12/06/24 [id number] [employer] VIS Given Date VIS Provided VIS Publication Date 03/25/24 Single Vaccine 21 Eligibility Eligibility Date Funding Source Not [facility] Eligible 03/25/24 Private Coding Level of Care Code Est Pt Level 4 (01216) Complex EM visit Add On G2211 Diagnoses Mild recurrent major depression F33.0 Essential hypertension I10 Mixed hyperlipidemia E78.2 Anxiety F41.9 Time Spent (min) 23 Assessment & Plan Assessment & Plan (1) Mild recurrent major depression: Code(s): F33.0 - Major depressive disorder, recurrent, mild Category: Medical Plan: Continue bupropion. (2) Essential hypertension: Code(s): I10 - Essential (primary) hypertension Category: Medical Plan: Continue amlodipine, lisinopril and chlorthalidone. Blood pressure goal is equal or less than 130/80. (3) Mixed hyperlipidemia: Code(s): E78.2 - Mixed hyperlipidemia Category: Medical Plan: Continue statins and fibrates. Follow a low-cholesterol diet. (4) Anxiety: Code(s): F41.9 - Anxiety disorder, unspecified Category: Medical Plan: Continue benzodiazepines. Follow-up with psychiatry Orders: Orders Influenza [id number] Immunization 03/25/24 Z23 - Encounter for immunization Medications: Refilled atorvastatin 80 mg PO BEDTIME 90 tabs 1RF 90 days amlodipine 10 mg PO DAILY 90 tabs 2RF 90 days I10 - Essential (primary) hypertension chlorthalidone 50 mg PO DAILY 90 tabs 3RF 90 days I10 - Essential (primary) hypertension fenofibrate 54 mg PO DAILY 90 tabs 3RF 90 days E78.2 - Mixed hyperlipidemia
== END 2024-03-25 17:11 | disposition home or self-care (01) ==
PROVIDERS: PCP Internal Medicine; Visit Provider Internal Medicine
DX: F33.0 Major depressive disorder, recurrent, mild (principal); I10 Essential (primary) hypertension; E78.2 Mixed hyperlipidemia; F41.9 Anxiety disorder, unspecified

== ENCOUNTER → 2024-03-25 16:12 | Outpatient (BNVA) | payer OTHER, SELFPAY | PROVIDERS: PCP Internal Medicine; Visit Provider Internal Medicine | DX: F33.0 Major depressive disorder, recurrent, mild (principal); I10 Essential (primary) hypertension; E78.2 Mixed hyperlipidemia; F41.9 Anxiety disorder, unspecified; Z79.899 Other long term (current) drug therapy; Z23 Encounter for immunization | CPT/HCPCS: 90471; 90656; 99212 ==

== ENCOUNTER 2024-04-28 14:41 | Outpatient (AMB) | payer OTHER, SELFPAY ==
--- NOTE | 2024-04-28 14:43 | MHC.OFFVIS ---
Vital Signs 04/28/24 14:46 BP 130/72 Intake Visit Reasons: EMB Cardiovascular Physician Assistant Required: Yes Cardiovascular Physician Assistant Language: Food Safety Field Specialist Services: Cardiovascular Physician Assistant Present (in person) Cardiovascular Physician Assistant Name: DANA Webster Information Interpreted: non-clinical & clinical Christmas Tree Farm Manager: Christmas Tree Farm Manager Present (Donna Vargas) Accompanied by: Daughter Allergies aspirin [ASA] Allergy (Intermediate, Verified 04/28/24 14:47) PALPITATIONS Penicillins [PENICILLINS] Allergy (Intermediate, Verified 04/28/24 14:47) RASH topiramate Adverse Reaction (Intermediate, Verified 04/28/24 14:47) headache HPI Comments Details: Presenting for repeat 3 months EMB. Last D&C pathology in 01/30 showed squamous metaplasia which can be associated with hyperplasia or malignancy. No vaginal bleeding since 01/30 [facility] Medical History Severe obesity (BMI 35.0-35.9 with comorbidity) Physical exam Effusion, left knee Severe obesity with body mass index (BMI) of 36.0 to 36.9 with serious comorbidity Mild recurrent major depression Left knee pain Lumbar degenerative disc disease Anxiety Mixed hyperlipidemia Essential hypertension Surgical History History of tubal ligation History of laparoscopic cholecystectomy Family History Father Myocardial infarction Alcoholism Mother Stroke Diabetes Hypertension Sister Breast cancer Son No problems noted. Family/Other FH: mental illness Mental health disorder Social History Housing: House Alcohol intake: never Patient Tobacco Use Status: Never used Tobacco e-Cigarette/Vaping Use: Never Used Second Hand Smoke Exposure: No service: No Current occupational status: unemployed Cognitive needs: Yes Hearing needs: No Vision needs: Yes Review of Systems Const All systems reviewed & are unremarkable except as noted in HPI and below Reports as per HPI and Reports no additional complaints GI Reports no additional complaints Reports no additional complaints Physical Exam Vital Signs: Last Vital Signs BP 130/72 04/28/24 14:46 Office Procedures Endometrial Biopsy Details: The patient was counseled regarding the indication and benefits of endometrial sampling to rule out endometrial pathology including not limited to endometrial hyperplasia or endometrial cancer and others; The alternatives (Either do nothing vs. hysteroscopy D&C) & the risks were discussed with the patient including but not limited: pain, uterine perforation, bleeding, infection, possible injury to bladder, bowel, ureter, possible need for blood transfusion with all its possible risks. The patient verbalized understanding all questions answered and signed consent. The patient was placed into the dorsal lithotomy position; a speculum was inserted in the vagina. Using aseptic technique for the procedure, the cervix was cleansed with Betadine. The anterior lip of the cervix was grasped with a single tooth tenaculum. The uterus was sounded to 7 cm with a 4 mm Pipelle was used. Tissues samples were obtained and placed in formalin, in a patient labeled container and sent to the pathology department. At the end of the procedure, there was minimal bleeding noted The patient tolerated the procedure well and was discharged in good condition with the following instructions: Nothing in the vagina until the bleeding stops. No sex until the bleeding stops, to call if any of the following occurs: fever (>100.4), flu-like symptoms, abdominal pain, heavy bleeding, four smelling vaginal discharge. The patient was instructed to schedule a Follow up appointment in 2 weeks to discuss pathology results of the biopsy and treatment options. This note was generated with a voice recognition program. Some errors may have been overlooked during the review of this note. Sometimes these errors may affect the content or meaning of a given sentence. [id number] Biopsy Assessment & Plan Assessment & Plan (1) Postmenopausal bleeding: Comment: Polyp with squamous metaplasia in 01/30 Inactive endometrium pathology in 01/30 Code(s): N95.0 - Postmenopausal bleeding Category: Medical Plan: EMB done, see procedure note Orders: Orders AMB Endometrial Biopsy Today N95.0 - Postmenopausal bleeding Coding Level of Care Code Procedure Only Diagnoses Postmenopausal bleeding N95.0 CPT Codes Endometrial Biopsy - CPT: 57527-Kyrxpleyeky Biopsy ([id number])
[2024-04-28 14:46] VITALS: BP 130/72
== END 2024-04-28 15:03 | disposition home or self-care (01) ==
PROVIDERS: PCP Internal Medicine; Visit Provider Obstetrics & Gynecology
DX: N95.0 Postmenopausal bleeding (principal)
CPT/HCPCS: 58100

== ENCOUNTER 2024-04-28 14:41 | Outpatient (REF) | payer OTHER, SELFPAY | END 2024-04-28 14:42 | disposition home or self-care (01) | LOC: HO.LNP 14:41 | PROVIDERS: PCP Internal Medicine; Visit Provider Obstetrics & Gynecology | DX: N95.0 Postmenopausal bleeding (principal) | CPT/HCPCS: 58100; 88305 ==

== ENCOUNTER 2024-07-05 11:30 | Outpatient (AMB) | payer OTHER, SELFPAY ==
--- NOTE | 2024-07-05 11:45 | MHC.OFFVIS ---
Intake Visit Reasons: EMB Results Entry Level Automotive Technician Required: Yes Entry Level Automotive Technician Language: Shipping Packer Services: Entry Level Automotive Technician Present ([employer]) Entry Level Automotive Technician Name: Love [id number] Information Interpreted: clinical only Client Administrator: Client Administrator Present (Alicia) Accompanied by: Daughter Allergies aspirin [ASA] Allergy (Intermediate, Verified 07/05/24 11:45) PALPITATIONS Penicillins [PENICILLINS] Allergy (Intermediate, Verified 07/05/24 11:45) RASH topiramate Adverse Reaction (Intermediate, Verified 07/05/24 11:45) headache HPI Comments Details: The patient is presenting after endometrial biopsy. The patient has no complaints, no vaginal bleeding, no feverishness chills or abdominal pain. The endometrial biopsy pathology report showed the following: Superficial strips and fragments of benign endometrium and focal endocervical epithelium; no atypia identified Last D&C pathology in 01/30 showed squamous metaplasia which can be associated with hyperplasia or malignancy. No vaginal bleeding since 01/30 [facility] Medical History Severe obesity (BMI 35.0-35.9 with comorbidity) Physical exam Effusion, left knee Severe obesity with body mass index (BMI) of 36.0 to 36.9 with serious comorbidity Mild recurrent major depression Left knee pain Lumbar degenerative disc disease Anxiety Mixed hyperlipidemia Essential hypertension Surgical History History of tubal ligation History of laparoscopic cholecystectomy Family History Father Myocardial infarction Alcoholism Mother Stroke Diabetes Hypertension Sister Breast cancer Son No problems noted. Family/Other FH: mental illness Mental health disorder Social History Housing: House Alcohol intake: never Patient Tobacco Use Status: Never used Tobacco e-Cigarette/Vaping Use: Never Used Second Hand Smoke Exposure: No service: No Current occupational status: unemployed Cognitive needs: Yes Hearing needs: No Vision needs: Yes Review of Systems Const All systems reviewed & are unremarkable except as noted in HPI and below Reports as per HPI and Reports no additional complaints GI Reports no additional complaints Reports no additional complaints Assessment & Plan Assessment & Plan (1) Postmenopausal bleeding: Comment: Polyp with squamous metaplasia in 01/30 Inactive endometrium pathology in 01/30 Benign endometrium pathology in 05/02 Code(s): N95.0 - Postmenopausal bleeding Category: Medical Plan: Discussed with the patient the results of the endometrial biopsy . Discussed with the patient the sensitivity, specificity, positive and negative predictive value, of endometrial biopsy in detecting endometrial pathology including but not limited to endometrial hyperplasia, cancer and other pathology; instructed the patient to schedule a repeat EMB in 3 months and to call in case vaginal bleeding bleeding recurs, the next step will be to proceed with further endometrial sampling evaluation to rule out endometrial pathology. All questions answered and the patient verbalized understanding and agreed with the plan. Coding Level of Care Code Est Pt Level 3 (49948) Diagnoses Postmenopausal bleeding N95.0
== END 2024-07-05 15:28 | disposition home or self-care (01) ==
LOC: HO.HWS 11:30
PROVIDERS: PCP Internal Medicine; Visit Provider Obstetrics & Gynecology
DX: N95.0 Postmenopausal bleeding (principal)
CPT/HCPCS: 99213

== ENCOUNTER → 2024-07-05 11:30 | Outpatient (BNVA) | payer OTHER, SELFPAY | PROVIDERS: PCP Internal Medicine; Visit Provider Obstetrics & Gynecology | DX: N95.0 Postmenopausal bleeding (principal) | CPT/HCPCS: 99212 ==

== ENCOUNTER → 2024-07-08 11:00 | Outpatient (BNV) | payer OTHER, SELFPAY | PROVIDERS: PCP Internal Medicine; Visit Provider Internal Medicine | DX: Z12.31 Encounter for screening mammogram for malignant neoplasm of breast (principal) | CPT/HCPCS: 77063; 77067 ==

== ENCOUNTER 2024-07-08 11:04 | Outpatient (REF) | payer OTHER, SELFPAY | END 2024-07-08 11:05 | disposition home or self-care (01) | LOC: HO.MAMMO 11:04 | PROVIDERS: PCP Internal Medicine; Visit Provider Internal Medicine | DX: Z12.31 Encounter for screening mammogram for malignant neoplasm of breast (principal) | CPT/HCPCS: 77063; 77067 ==

== ENCOUNTER 2024-08-03 10:47 | Outpatient (AMB) | payer OTHER, SELFPAY ==
[2024-08-03 10:54] VITALS: BP 166/80; BMI 32.7
--- NOTE | 2024-08-03 10:54 | A.OFFPC_ITS ---
Vital Signs 08/03/24 10:54 Height 5 ft 8 in Weight 215 lb BMI 32.7 BP 166/80 H Blood Pressure Location Lt brachial Position Sitting Intake Visit Reasons: bp Intake Note: Patient here for a follow up BP House Principal Required: Yes House Principal Language: Stem Frazer Name: Olya Wolf MD Information Interpreted: non-clinical & clinical Accompanied by: Daughter Allergies aspirin [ASA] Allergy (Intermediate, Verified 08/03/24 10:59) PALPITATIONS Penicillins [PENICILLINS] Allergy (Intermediate, Verified 08/03/24 10:59) RASH topiramate Adverse Reaction (Intermediate, Verified 08/03/24 10:59) headache Medication List - Last Reconciled 08/03/24 by Olya Wolf MD acetaminophen ER (Tylenol Arthritis Pain) 1,300 mg PO Q12H amlodipine 10 mg PO DAILY 90 days atorvastatin 80 mg PO BEDTIME 90 days bupropion HCl XL 300 mg PO QAM chlorthalidone 50 mg PO DAILY 90 days cholecalciferol (vitamin D3) 50 mcg PO DAILY 90 days cholestyramine (with sugar) 4 gram 4 grams PO DAILY PRN 30 days clonazepam 0.5 mg PO BID PRN 10 days fenofibrate 54 mg PO DAILY 90 days ibuprofen 400 mg PO Q8H PRN 30 days lisinopril 40 mg PO DAILY 90 days Shower Chair As directed trazodone 100 mg (2 x 50 mg) PO BEDTIME PRN 90 days walker with seat and wheels Tobacco use date assessed: 08/03/24 Fall risk assessment: No Falls in past year Last assessed Fall Risk: 08/03/24 Dental Screening Dental Screen Date: 08/03/24 Did you have a dental visit in the last 12 months?: No Did you have a dental problem in the last 6 months where you did not have access to dental care?: No Was dental information given to patient?: Patient declined HPI HPI Comments History of Present Illness Details This is a 64-year-old female with hypertension, mixed hyperlipidemia, mild major depression and anxiety that comes today accompanied by daughter for follow-up on her conditions. Blood pressure elevated today and will be recheck in 3 weeks by nurse navigator. She did took her medications. On low- cholesterol diet and more compliant with statins. Lipid panel will be order for next office visit. Depression with anxiety stable with medications and follow by Psychiatry. She is obese with a BMI of 32.7 and was advised to do diet and exercise to reach BMI goal less than 30. Denies any chest pain, shortness on breath or palpitations. [facility] Medical History Severe obesity (BMI 35.0-35.9 with comorbidity) Physical exam Effusion, left knee Severe obesity with body mass index (BMI) of 36.0 to 36.9 with serious comorbidity Mild recurrent major depression Left knee pain Lumbar degenerative disc disease Anxiety Mixed hyperlipidemia Essential hypertension Surgical History History of tubal ligation History of laparoscopic cholecystectomy Family History Father Myocardial infarction Alcoholism Mother Stroke Diabetes Hypertension Sister Breast cancer Son No problems noted. Family/Other FH: mental illness Mental health disorder Social History Housing: House Alcohol intake: never Patient Tobacco Use Status: Never used Tobacco e-Cigarette/Vaping Use: Never Used Second Hand Smoke Exposure: No service: No Current occupational status: unemployed Cognitive needs: Yes Hearing needs: No Vision needs: Yes Questionnaire PHQ-9 Over the last 2 weeks, how often have you been bothered by any of the following problems? 1. Little interest or pleasure in doing things: not at all 2. Feeling down, depressed, or hopeless: not at all 3. Trouble falling or staying asleep, or sleeping too much: not at all 4. Feeling tired or having little energy: not at all 5. Poor appetite or overeating: not at all 6. Feeling bad about yourself - or that you are a failure or have let yourself or your family down: not at all 7. Trouble concentrating on things, such as reading the newspaper or watching television: not at all 8. Moving or speaking so slowly that other people could have noticed. Or the opposite - being so fidgety or restless that you have been moving around a lot more than usual: not at all 9. Thoughts that you would be better off or of hurting yourself in some way: not at all Total score: 0 Depression Screening Interpretation: Negative Depression Screening Done: Yes 30354 - PHQ-9 Billing: Yes Source: Developed by Drs. Teddy Weber, Mehreen Waterman, Scooter Ingram and colleagues, with an educational lady from [employer]. Thrive Questionnaire Date Thrive assessed: 07/14/23 I am a: Patient What is your living situation today?: I have a steady place to live Within the past 12 months, did the food you bought not last and you didn't have the money to get more?: Never true Within the past 12 months, did you worry whether your food would run out before you got money to buy more?: Never true Do you have trouble paying for medicines?: No Do you have trouble getting transportation to medical appointments?: No Do you have trouble paying your heating and electricity bill?: No Do you have trouble taking care of your child, family member or friend?: No Do you have trouble with day-to-day activities such as bathing, preparing meals, shopping, managing finances, etc.?: No Are you currently unemployed and looking for a job?: No Are you interested in more education?: No Please select the resources that you would like help with: None Currently or been in a relationship where the following occur: No concerns reported THRIVE Score: 0 AUDIT C Alcohol Use Questionnaire (AUDIT-C) 1. How often do you have a drink containing alcohol?: Never Total Score: 0 Score Reviewed/Action Taken: No DOUG-7 AMB Questionnaire DOUG-7 Date DOUG - 7 assessed: 08/03/24 Feeling nervous, anxious, or on edge: 1 = Several days Not being able to stop or control worryin = Not at all Worrying too much about different things: 1 = Several days Trouble relaxin = Several days Being so restless that it is hard to sit still: 0 = Not at all Becoming easily annoyed or irritable: 0 = Not at all Feeling afraid as if something awful might happen: 1 = Several days Total DOUG-7 score (0-4 normal; 5-9 mild; 10-14 moderate; 15-21 severe): 4 Source: Developed by Mehreen Heck Kurt Kroenke and colleagues, with an educational lady from [employer]. Review of Systems Const All systems reviewed & are unremarkable except as noted in HPI and below Card Denies chest pain at rest, Denies chest pain with activity, Denies edema, Denies irregular heart rhythm, Denies claudication, Denies dyspnea, Denies dyspnea on exertion, Denies orthopnea, Denies paroxysmal nocturnal dyspnea and Denies slow heart rate Resp Denies cough, Denies dyspnea and Denies dyspnea on exertion GI Denies abdominal pain, Denies change in bowel habits, Denies excessive flatus, Denies nausea and Denies vomiting Denies urinary incontinence, Denies urinary hesitancy and Denies urinary urgency Musc Denies abnormal gait, Denies atrophy, Denies deformity and Denies limited range of motion Skin/Breast Denies bleeding lesions, Denies changing lesions and Denies rash Neuro Denies abnormal gait, Denies behavioral changes and Denies lack of coordination Psych Denies behavioral changes Physical exam (Primary Care) Vital Signs: Last Vital Signs BP 166/80 H 08/03/24 10:54 BMI result Body Mass Index 32.7 BMI Assessment/Plan discussion: High BMI High, discussed plan: lifestyle, weight reduction, dietary and physical activity Tobacco/Smoking Status: Tobacco use Status Tobacco use date assessed 08/03/24 08/03/24 11:00 Patient Tobacco Use Status Never used Tobacco 08/03/24 11:00 e-Cigarette/Vaping Use Never Used 08/03/24 11:00 PHQ-9: PHQ-9 Score PHQ-9: Total score 0 08/03/24 11:18 Depression Screening Interpretation: Negative Thrive Assessment: Date of Thrive Assessment Date Thrive assessed 07/14/23 08/03/24 11:00 Currently or been in a relationship where the following occur: No concerns reported Resp Effort & Inspection: normal respiratory effort Auscultation: clear to auscultation bilaterally Cardio Jugular venous distension: no JVD Rate: regular rate Rhythm: regular rhythm Heart sounds: S1 normal heart sound present and S2 normal heart sound present Extrem General: Yes full ROM Coding Level of Care Code Est Pt Level 4 (90573) Complex EM visit Add On G2211 Diagnoses Mild recurrent major depression F33.0 Anxiety F41.9 Essential hypertension I10 Mixed hyperlipidemia E78.2 Additional Codes PHQ-9 - 44371 - PHQ-9 Billing: Yes ([id number]) Time Spent (min) 24 Assessment & Plan Assessment & Plan (1) Mild recurrent major depression: Code(s): F33.0 - Major depressive disorder, recurrent, mild Category: Medical Plan: Continue bupropion. Follow-up with psychiatry. (2) Anxiety: Code(s): F41.9 - Anxiety disorder, unspecified Category: Medical Plan: Continue benzodiazepines as needed. Follow-up with psychiatry. (3) Essential hypertension: Code(s): I10 - Essential (primary) hypertension Category: Medical Plan: Continue chlorthalidone, lisinopril and amlodipine. Blood pressure goal is equal or less than 130/80. Recheck blood pressure with nurse navigator in 3 weeks. (4) Mixed hyperlipidemia: Code(s): E78.2 - Mixed hyperlipidemia Category: Medical Plan: Continue statins and fibrates. Repeat lipid panel. Orders: Orders Vitamin D 25-OH Total 4 Months E55.9 - Vitamin D deficiency, unspecified Lipid Panel 4 Months E78.5 - Hyperlipidemia, unspecified Comprehensive [place]. Panel Fast 4 Months I10 - Essential (primary) hypertension
== END 2024-08-03 11:08 | disposition home or self-care (01) ==
PROVIDERS: PCP Internal Medicine; Visit Provider Internal Medicine
DX: F33.0 Major depressive disorder, recurrent, mild (principal); F41.9 Anxiety disorder, unspecified; I10 Essential (primary) hypertension; E78.2 Mixed hyperlipidemia

== ENCOUNTER → 2024-08-03 10:47 | Outpatient (BNVA) | payer OTHER, SELFPAY | PROVIDERS: PCP Internal Medicine; Visit Provider Internal Medicine | DX: F33.0 Major depressive disorder, recurrent, mild (principal); F41.9 Anxiety disorder, unspecified; E78.2 Mixed hyperlipidemia; I10 Essential (primary) hypertension | CPT/HCPCS: 96127; 99212 ==

== ENCOUNTER 2024-11-29 11:16 | Outpatient (REF) | payer OTHER, SELFPAY ==
--- NOTE | ~2024-11-29 | MM_ITS ---
EXAMINATION: MM DIAGNOSTIC DIGITAL BREAST TOMOSYNTHESIS, LEFT Limited left breast ultrasound. CLINICAL INFORMATION: Call back screening for new focal asymmetry in the retroareolar region of the left breast anterior depth. COMPARISON: Mammography: [facility] on PACS. TECHNIQUE: Digital breast tomosynthesis is performed in both the craniocaudal and mediolateral oblique views along with computer-aided detection (CAD). Synthesized 2D images are generated from the tomosynthesis. FINDINGS: There are scattered areas of fibroglandular density (ACR BI-RADS breast composition Category b). New focal asymmetry in the retroareolar region anterior depth persist on additional imaging projections. No suspicious calcifications or other abnormal findings. Targeted color Doppler ultrasound scanning in the left retroareolar region demonstrates a irregular hypoechoic solid mass at 12:00 2 cm from the nipple measuring 16 x 7 x 12 mm with internal vascular flow. MM/MM tomosynthesis added views L IMPRESSION: Left breast solid irregular mass in the retroareolar region 12:00 2 cm from the nipple. Recommend histology with ultrasound-guided core needle biopsy at this time. The findings and recommendations were discussed with the patient the procedure will be scheduled. ASSESSMENT: BI-RADS BI-RADS 4 - Suspicious finding RECOMMENDATION: Biopsy recommended Results were provided to the patient at time of visit by the technologist. Electronically signed by: Larissa Craven DO 11/29/2024 12:13 PM EDT
== END 2024-11-29 11:17 | disposition home or self-care (01) ==
LOC: HO.MAMMO 11:16
PROVIDERS: PCP Internal Medicine; Visit Provider Internal Medicine
DX: N64.89 Other specified disorders of breast (principal)
CPT/HCPCS: 76642; 77061; 77065

== ENCOUNTER → 2024-11-29 11:30 | Outpatient (BNV) | payer OTHER, SELFPAY | PROVIDERS: PCP Internal Medicine; Visit Provider Internal Medicine | DX: N63.20 Unspecified lump in the left breast, unspecified quadrant (principal) | CPT/HCPCS: 76642; 77065; G0279 ==

== ENCOUNTER 2024-12-06 09:31 | Outpatient (AMB) | payer OTHER, SELFPAY ==
--- NOTE | 2024-12-06 09:53 | MHC.PC.OV ---
Vital Signs 12/06/24 09:56 Height 5 ft 8 in Weight 213 lb BMI 32.4 BP 160/90 H Blood Pressure Location Lt brachial Position Sitting Intake Visit Reasons: FOLLOW UP Ex Assistant/Program Director Required: No Accompanied by: Daughter Allergies aspirin (ASA) Allergy (Intermediate, Verified 12/06/24 10:04) PALPITATIONS Penicillins (PENICILLINS) Allergy (Intermediate, Verified 12/06/24 10:04) RASH topiramate Adverse Reaction (Intermediate, Verified 12/06/24 10:04) headache Medication List - Last Reconciled 12/06/24 by Olya Wolf MD acetaminophen ER (Tylenol Arthritis Pain) 1,300 mg PO Q12H [adult diapers As directed] amlodipine 10 mg PO DAILY 90 days atorvastatin 80 mg PO BEDTIME 90 days bupropion HCl XL 300 mg PO QAM chlorthalidone 50 mg PO DAILY 90 days cholecalciferol (vitamin D3) 50 mcg PO DAILY 90 days cholestyramine (with sugar) 4 gram 4 grams PO DAILY PRN 30 days clonazepam 0.5 mg PO BID PRN 10 days fenofibrate 54 mg PO DAILY 90 days ibuprofen 400 mg PO Q8H PRN 30 days lisinopril 40 mg PO DAILY 90 days Shower Chair As directed trazodone 100 mg (2 x 50 mg) PO BEDTIME PRN 90 days walker with seat and wheels Tobacco use date assessed: 08/03/24 Fall risk assessment: No Falls in past year Last assessed Fall Risk: 12/06/24 Dental Screening Dental Screen Date: 08/03/24 HPI HPI Comments History of Present Illness Details The patient is a 64-year-old female presenting with hypertension management and medication review. Her blood pressure was recorded at 160/90 mmHg during the visit, indicating elevated levels. She is currently on multiple medications including amlodipine, lisinopril, and chlortalidone for hypertension management. The patient also has a history of hyperlipidemia, for which she is taking atorvastatin and fenofibrate. She reports adherence to her medication regimen. Additionally, the patient is being treated for depression with bupropion and has a history of insomnia managed with trazodone. She denies any current symptoms of depression or insomnia. Preventative care measures include a recent mammogram with follow-up appointments scheduled, and she received a pneumonia vaccination during this visit. [facility] Medical History Severe obesity (BMI 35.0-35.9 with comorbidity) Physical exam Effusion, left knee Severe obesity with body mass index (BMI) of 36.0 to 36.9 with serious comorbidity Mild recurrent major depression Left knee pain Lumbar degenerative disc disease Anxiety Mixed hyperlipidemia Essential hypertension Surgical History History of tubal ligation History of laparoscopic cholecystectomy Family History Father Myocardial infarction Alcoholism Mother Stroke Diabetes Hypertension Sister Breast cancer Son No problems noted. Family/Other FH: mental illness Mental health disorder Social History Housing: House Alcohol intake: never Patient Tobacco Use Status: Never used Tobacco e-Cigarette/Vaping Use: Never Used Second Hand Smoke Exposure: No service: No Current occupational status: unemployed Cognitive needs: Yes Hearing needs: No Vision needs: Yes Questionnaire PHQ-9 Over the last 2 weeks, how often have you been bothered by any of the following problems? 1. Little interest or pleasure in doing things: not at all 2. Feeling down, depressed, or hopeless: not at all 3. Trouble falling or staying asleep, or sleeping too much: more than half the days 4. Feeling tired or having little energy: several days 5. Poor appetite or overeating: several days 6. Feeling bad about yourself - or that you are a failure or have let yourself or your family down: not at all 7. Trouble concentrating on things, such as reading the newspaper or watching television: not at all 8. Moving or speaking so slowly that other people could have noticed. Or the opposite - being so fidgety or restless that you have been moving around a lot more than usual: not at all 9. Thoughts that you would be better off or of hurting yourself in some way: not at all Total score: 4 Depression Screening Interpretation: Positive Depression Screening Follow-up: Existing condition, In treatment, Community Mental Health Worker F/U and Follow-up Visit Requested Depression Screening Done: Yes 12642 - PHQ-9 Billing: Yes Source: Developed by Drs. Teddy Weber, Mehreen Waterman, Scooter Ingram and colleagues, with an educational lady from [employer]. Thrive Questionnaire Date Thrive assessed: 12/06/24 I am a: Patient What is your living situation today?: I have a steady place to live Within the past 12 months, did the food you bought not last and you didn't have the money to get more?: Never true Within the past 12 months, did you worry whether your food would run out before you got money to buy more?: Never true Do you have trouble paying for medicines?: No Do you have trouble getting transportation to medical appointments?: No Do you have trouble paying your heating and electricity bill?: No Do you have trouble taking care of your child, family member or friend?: No Do you have trouble with day-to-day activities such as bathing, preparing meals, shopping, managing finances, etc.?: Yes Are you currently unemployed and looking for a job?: No Are you interested in more education?: No Please select the resources that you would like help with: None Currently or been in a relationship where the following occur: No concerns reported THRIVE Score: 0 AUDIT C Alcohol Use Questionnaire (AUDIT-C) 1. How often do you have a drink containing alcohol?: Never Total Score: 0 Score Reviewed/Action Taken: No DOUG-7 AMB Questionnaire DOUG-7 Date DOUG - 7 assessed: 08/03/24 Feeling nervous, anxious, or on edge: 1 = Several days Not being able to stop or control worryin = Not at all Worrying too much about different things: 0 = Not at all Trouble relaxin = Several days Being so restless that it is hard to sit still: 1 = Several days Becoming easily annoyed or irritable: 1 = Several days Feeling afraid as if something awful might happen: 0 = Not at all Total DOUG-7 score (0-4 normal; 5-9 mild; 10-14 moderate; 15-21 severe): 4 Source: Developed by Drs. Teddy Weber, Mehreen Waterman, Scooter Ingram and colleagues, with an educational lady from [employer]. DOUG-7 Assessment Billing DOUG-7 Assessment Tool: DOUG-7 Assessment 41105 Review of Systems Const All systems reviewed & are unremarkable except as noted in HPI and below Card Denies chest pain at rest, Denies chest pain with activity, Denies edema, Denies irregular heart rhythm, Denies claudication, Denies dyspnea, Denies dyspnea on exertion, Denies orthopnea, Denies paroxysmal nocturnal dyspnea and Denies slow heart rate Resp Denies cough, Denies dyspnea and Denies dyspnea on exertion GI Denies abdominal pain, Denies change in bowel habits, Denies excessive flatus, Denies nausea and Denies vomiting Denies urinary incontinence, Denies urinary hesitancy and Denies urinary urgency Musc Denies abnormal gait, Denies atrophy, Denies deformity and Denies limited range of motion Skin/Breast Denies bleeding lesions, Denies changing lesions and Denies rash Neuro Denies abnormal gait and Denies lack of coordination Physical exam (Primary Care) Vital Signs: Last Vital Signs BP 160/90 H 12/06/24 09:56 BMI result Body Mass Index 32.4 Tobacco/Smoking Status: Tobacco use Status Tobacco use date assessed 08/03/24 12/06/24 09:54 Patient Tobacco Use Status Never used Tobacco 12/06/24 09:54 e-Cigarette/Vaping Use Never Used 12/06/24 09:54 PHQ-9: PHQ-9 Score PHQ-9: Total score 4 12/06/24 10:23 Depression Screening Interpretation: Positive Depression Screening Follow-up: Existing condition, In treatment, Community Mental Health Worker F/U and Follow-up Visit Requested Thrive Assessment: Date of Thrive Assessment Date Thrive assessed 12/06/24 12/06/24 09:58 Currently or been in a relationship where the following occur: No concerns reported Resp Effort & Inspection: normal respiratory effort Auscultation: clear to auscultation bilaterally Cardio Jugular venous distension: no JVD Rate: regular rate Rhythm: regular rhythm Heart sounds: S1 normal heart sound present and S2 normal heart sound present Extrem General: Yes full ROM Immunizations pneumoc 20-nilda conj-dip cr(PF) 0.5 mL IM syringe Performing Provider: Olya Wolf MD Performing Location: [facility] Administered by: DANA Monsalve on 12/06/24 10:23 Dose Route Admin Location Dispensed Lot Number Expiration Date [facility] Director Retirement 0.5 mL IM Left Deltoid 0.5 mL [id number] 11/07/[id number] [employer] Total Dispensed Waste 0.5 mL 0 % VIS Given Date VIS Provided VIS Publication Date 12/06/24 Single Vaccine 24 Eligibility Eligibility Date Funding Source Not [facility] Eligible 12/06/24 Private Coding Level of Care Code Est Pt Level 4 (77647) Complex EM visit Add On G2211 Diagnoses Essential hypertension I10 Mixed hyperlipidemia E78.2 Mild recurrent major depression F33.0 Anxiety F41.9 Additional Codes DOUG-7 Assessment Billing - DOUG-7 Assessment Tool: DOUG-7 Assessment 52468 ([id number]) PHQ-9 - 34842 - PHQ-9 Billing: Yes ([id number]) Time Spent (min) 23 Assessment & Plan Assessment & Plan (1) Essential hypertension: Code(s): I10 - Essential (primary) hypertension Category: Medical (2) Mixed hyperlipidemia: Code(s): E78.2 - Mixed hyperlipidemia Category: Medical (3) Mild recurrent major depression: Code(s): F33.0 - Major depressive disorder, recurrent, mild Category: Medical (4) Anxiety: Code(s): F41.9 - Anxiety disorder, unspecified Category: Medical Plan The plan includes monitoring the patient's blood pressure closely, with a follow-up appointment scheduled in a couple of weeks to reassess her hypertension management. Her current medication regimen will be reviewed to ensure optimal control of her blood pressure and lipid levels. Preventative care measures include administering the pneumonia vaccine and ensuring follow-up for her recent mammogram findings. Patient was informed and verbally consented to the use of an ambient scribe for clinic note documentation during this visit. Orders: Orders Lipid Panel Today E78.5 - Hyperlipidemia, unspecified Comprehensive [place]. Panel Fast Today I10 - Essential (primary) hypertension Pneumococcal 20 Immunization Today Z23 - Encounter for immunization Vitamin D 25-OH Total Today E55.9 - Vitamin D deficiency, unspecified XR DEXA axial skeleton Today Z78.0 - Asymptomatic menopausal state Medications: Discontinued clonazepam Discontinued Reason: Patient Completed Course 0.5 mg PO BID 10 days PRN 20 tabs 0RF anxiety
[2024-12-06 09:56] VITALS: BP 160/90; BMI 32.4
== END 2024-12-06 10:22 | disposition home or self-care (01) ==
LOC: HO.HMCH 09:32
PROVIDERS: PCP Internal Medicine; Visit Provider Internal Medicine
DX: I10 Essential (primary) hypertension (principal); E78.2 Mixed hyperlipidemia; F33.0 Major depressive disorder, recurrent, mild; F41.9 Anxiety disorder, unspecified; Z23 Encounter for immunization

== ENCOUNTER → 2024-12-06 09:31 | Outpatient (BNVA) | payer OTHER, SELFPAY | PROVIDERS: PCP Internal Medicine; Visit Provider Internal Medicine | DX: I10 Essential (primary) hypertension (principal); E78.5 Hyperlipidemia, unspecified; E55.9 Vitamin D deficiency, unspecified; Z23 Encounter for immunization; Z78.0 Asymptomatic menopausal state | CPT/HCPCS: 90471; 90677; 96127; 99212 ==

== ENCOUNTER 2024-12-20 08:00 | Outpatient (AMB) | payer OTHER, SELFPAY ==
[2024-12-20 08:29] VITALS: BP 150/74; PULSE 80; BMI 32.2
--- NOTE | 2024-12-20 08:29 | MHC.OFFVIS ---
Vital Signs 12/20/24 08:29 Height 5 ft 8 in Weight 212 lb BMI 32.2 BP 150/74 H Blood Pressure Location Rt brachial Position Sitting Pulse 80 Intake Visit Reasons: US biopsy left breast 12 o'clock mass Intake Note: Patient here for Left breast US bx at 12:00 o'clock mass. Patient c/o: at times feels like a mild current sensation on Lt br. LT br US and MM: 11-29-2024 Bx scheduled 12-23-2024 @ 12:30. Elastic Attacher Chainstitch Required: Yes Elastic Attacher Chainstitch Name: Sally CORTEZ Accompanied by: Modesta Ramos Allergies aspirin (ASA) Allergy (Intermediate, Verified 12/20/24 08:31) PALPITATIONS Penicillins (PENICILLINS) Allergy (Intermediate, Verified 12/20/24 08:31) RASH topiramate Adverse Reaction (Intermediate, Verified 12/20/24 08:31) headache Medication List - Last Reconciled 12/20/24 by Jason Roblero MD acetaminophen ER (Tylenol Arthritis Pain) 1,300 mg PO Q12H [adult diapers As directed] amlodipine 10 mg PO DAILY 90 days atorvastatin 80 mg PO BEDTIME 90 days bupropion HCl XL 300 mg PO QAM chlorthalidone 50 mg PO DAILY 90 days cholecalciferol (vitamin D3) 50 mcg PO DAILY 90 days cholestyramine (with sugar) 4 gram 4 grams PO DAILY PRN 30 days fenofibrate 54 mg PO DAILY 90 days ibuprofen 400 mg PO Q8H PRN 30 days lisinopril 40 mg PO DAILY 90 days Shower Chair As directed trazodone 100 mg (2 x 50 mg) PO BEDTIME PRN 90 days walker with seat and wheels HPI HPI US biopsy left breast 12 o'clock mass: Details: 64 year female referred for a left breast mass. She had a mammogram 2 months ago which showed this irregular mass in the left breast. She was brought in for targeted ultrasound and mammogram which showed this left breast solid irregular mass in the retroareolar region, at the 12 o'clock position. An ultrasound-guided biopsy was recommended She says she does not feel the mass herself Her menarche was at age of 10. Her 1st was at the age of 14. She had 4 pregnancies. She had menopause at the age of 46 She does mentioned that she had a sister who had breast cancer in her 50s. [facility] Medical History Left breast mass Severe obesity (BMI 35.0-35.9 with comorbidity) Physical exam Effusion, left knee Severe obesity with body mass index (BMI) of 36.0 to 36.9 with serious comorbidity Mild recurrent major depression Left knee pain Lumbar degenerative disc disease Anxiety Mixed hyperlipidemia Essential hypertension Surgical History History of tubal ligation History of laparoscopic cholecystectomy Family History Father Myocardial infarction Alcoholism Mother Stroke Diabetes Hypertension Sister Breast cancer Son No problems noted. Family/Other FH: mental illness Mental health disorder Social History Housing: House Alcohol intake: never Patient Tobacco Use Status: Never used Tobacco e-Cigarette/Vaping Use: Never Used Second Hand Smoke Exposure: No service: No Current occupational status: unemployed Cognitive needs: Yes Hearing needs: No Vision needs: Yes Review of Systems Const Denies chills and Denies fever(s) Card Denies chest pain, Denies dyspnea and Denies dyspnea on exertion Resp Denies cough, Denies dyspnea and Denies dyspnea on exertion GI Denies hematochezia and Denies change in bowel habits Denies hematuria Musc Denies back pain and Denies limited range of motion Neuro Denies focal weakness and Denies convulsions Psych Denies depression and Denies mood swings Physical Exam Vital Signs: Last Vital Signs Pulse 80 12/20/24 08:29 BP 150/74 H 12/20/24 08:29 BMI result Body Mass Index 32.2 Const Other: Morbidly obese General: comfortable and no acute distress Orientation/consciousness: patient oriented x3 Neck Neck: Yes no lymphadenopathy Chest Other: Large, pendulous breasts, no palpable breast masses, no axillary lymphadenopathy Resp Auscultation: clear to auscultation bilaterally Cardio Rhythm: regular rhythm GI Palpation (GI): Soft to palpation, nontender and no guarding Neuro General: patient oriented x3 Assessment & Plan Assessment & Plan (1) Left breast mass: Code(s): N63.20 - Unspecified lump in the left breast, unspecified quadrant Category: Medical Plan: She has this left breast mass seen on mammogram and ultrasound as described above. She was recommended to undergo ultrasound-guided biopsy. I reviewed with her the technique of this procedure I will see her next week to discuss the path report She seems to understand the plan well Orders: Orders US breast ndl core biopsy LT 12/19/24 N63.20 - Unspecified lump in the left breast, unspecified quadrant Coding Level of Care Code New Pt Level 3 (67227) Diagnoses Left breast mass N63.20
== END 2024-12-20 08:49 | disposition home or self-care (01) ==
LOC: HO.HGS 08:01
PROVIDERS: PCP Internal Medicine; Visit Provider Surgery
DX: N63.20 Unspecified lump in the left breast, unspecified quadrant (principal)
CPT/HCPCS: 99203

== ENCOUNTER → 2024-12-20 08:00 | Outpatient (BNVA) | payer OTHER, SELFPAY | PROVIDERS: PCP Internal Medicine; Visit Provider Surgery | DX: Z71.2 Person consulting for explanation of examination or test findings (principal); N63.21 Unspecified lump in the left breast, upper outer quadrant | CPT/HCPCS: 99202 ==

== ENCOUNTER 2024-12-23 07:39 | Outpatient (REF) | payer OTHER, SELFPAY ==
--- NOTE | ~2024-12-23 | MM_ITS ---
PROCEDURE: ULTRASOUND-GUIDED LEFT BREAST BIOPSY CLINICAL INFORMATION: Solid irregular mass 12:00 left breast COMPARISON: Comparison is made with prior imaging. TECHNIQUE: The details of the procedure, as well as the risks, benefits, and alternatives to the procedure were explained to the patient in detail and all of her questions were answered, after which, written informed consent was obtained. PROCEDURE: Prior to the procedure, sonography revealed a solid irregular mass in the left breast at 12:00. A time-out was performed, the lesion intended for biopsy was targeted and the skin of the left breast was then prepped and draped in the usual sterile fashion. Using sonographic guidance, sterile technique, and 1% lidocaine without epinephrine for local anesthesia, a total of 5 cores were obtained through the targeted area with a 14-gauge biopsy device. At the completion of tissue sampling, a single butterfly metallic clip was deposited at the biopsy site. An appropriate sample was obtained. The postprocedure 2-view direct digital mammogram reveals satisfactory positioning of the biopsy clip. The patient tolerated the procedure well and, after assuring adequate hemostasis, was discharged in good condition after reviewing postbiopsy breast care instructions. Final pathology results are pending. MM/MM tomosynthesis diagnostic LT IMPRESSION: 1. Uncomplicated sonographically-guided core biopsy of the left breast. The 2-view direct digital postprocedure mammogram reveals satisfactory positioning of the biopsy clip. 2. Final pathology results are pending. A separate report with final recommendations will be issued once these results are made available. Electronically signed by: Larissa Craven DO 12/23/2024 11:03 AM EDT
[2024-12-23] MEDS: Lidocaine HCl 1 % 20 ML VIAL 9 ML SUBCUT (08:54)
== END 2024-12-23 07:40 | disposition home or self-care (01) ==
LOC: HO.MAMMO 07:39
PROVIDERS: PCP Internal Medicine; Visit Provider Surgery
DX: C50.812 Malignant neoplasm of overlapping sites of left female breast (principal); N63.20 Unspecified lump in the left breast, unspecified quadrant
CPT/HCPCS: 19083; 77061; 77065; 88305; 88341; 88342; 88360; A4648; J2003

== ENCOUNTER → 2024-12-23 08:00 | Outpatient (BNV) | payer OTHER, SELFPAY | PROVIDERS: PCP Internal Medicine; Visit Provider Internal Medicine | DX: N63.21 Unspecified lump in the left breast, upper outer quadrant (principal); N63.22 Unspecified lump in the left breast, upper inner quadrant | CPT/HCPCS: 19083; 77065 ==

== ENCOUNTER 2024-12-30 14:33 | Outpatient (AMB) | payer OTHER, SELFPAY ==
--- NOTE | 2024-12-30 14:34 | A.OFFVIS_ITS ---
Vital Signs 12/30/24 14:42 Height 5 ft 8 in Weight 211 lb BMI 32.1 BP 152/70 H Blood Pressure Location Rt brachial Position Sitting Pulse 85 Intake Visit Reasons: s/p lt br US bx Intake Note: Patient here s/p Left br US bx 12o'clock. Patient c/o: reports bx site healing well. MM: 02-03-25 @ 9:15 Pediatric Nurse Practitioner Required: No Accompanied by: daughter Modesta Allergies aspirin (ASA) Allergy (Intermediate, Verified 12/30/24 14:42) PALPITATIONS Penicillins (PENICILLINS) Allergy (Intermediate, Verified 12/30/24 14:42) RASH topiramate Adverse Reaction (Intermediate, Verified 12/30/24 14:42) headache HPI HPI s/p lt br US bx: Details: 64 year female here for follow-up for a left breast mass. She had a mammogram earlier this year ago which showed this irregular mass in the left breast. She was brought in for targeted ultrasound and mammogram which showed this left breast solid irregular mass in the retroareolar region, at the 12 o'clock position. This mammogram had shown an irregular hypoechoic solid mass at 12:00 2 cm from the nipple measuring 16 x 7 x 12 mm with internal vascular flow. An ultrasound-guided biopsy was therefore done last week and she is here to discuss the path report. She says she tolerated the biopsy well. She describes a little bit of bruising on the area. She says she does not feel the mass herself . Her menarche was at age of 10. Her 1st was at the age of 14. She had 4 pregnancies. She had menopause at the age of 46 She does mentioned that she had a sister who had breast cancer in her 50s. COUNT INCLUDES THE [facility] Medical History (Updated 12/30/24 @ 15:05 by Jason Roblero MD) Invasive ductal carcinoma of breast Left breast mass Severe obesity (BMI 35.0-35.9 with comorbidity) Physical exam Effusion, left knee Severe obesity with body mass index (BMI) of 36.0 to 36.9 with serious comorbidity Mild recurrent major depression Left knee pain Lumbar degenerative disc disease Anxiety Mixed hyperlipidemia Essential hypertension Surgical History History of tubal ligation History of laparoscopic cholecystectomy Family History Father Myocardial infarction Alcoholism Mother Stroke Diabetes Hypertension Sister Breast cancer Son No problems noted. Family/Other FH: mental illness Mental health disorder Social History Housing: House Alcohol intake: never Patient Tobacco Use Status: Never used Tobacco e-Cigarette/Vaping Use: Never Used Second Hand Smoke Exposure: No service: No Current occupational status: unemployed Cognitive needs: Yes Hearing needs: No Vision needs: Yes Review of Systems Const Denies chills and Denies fever(s) Card Denies chest pain, Denies dyspnea and Denies dyspnea on exertion Resp Denies cough, Denies dyspnea and Denies dyspnea on exertion GI Denies hematochezia and Denies change in bowel habits Denies hematuria Musc Denies back pain and Denies limited range of motion Neuro Denies focal weakness and Denies convulsions Psych Denies depression and Denies mood swings Physical Exam Vital Signs: Last Vital Signs Pulse 85 12/30/24 14:42 BP 152/70 H 12/30/24 14:42 BMI result Body Mass Index 32.1 Const Other: Obese General: comfortable and no acute distress Orientation/consciousness: patient oriented x3 Neck Neck: Yes no lymphadenopathy Chest Other: Large, pendulous breasts, palpable mass, mild ecchymosis on the biopsy site on the left Resp Auscultation: clear to auscultation bilaterally Cardio Rhythm: regular rhythm GI Palpation (GI): Soft to palpation, nontender and no guarding Neuro General: patient oriented x3 Assessment & Plan Assessment & Plan (1) Invasive ductal carcinoma of breast: Code(s): C50.919 - Malignant neoplasm of unspecified site of unspecified female breast Category: Medical Plan: Unfortunately, the ultrasound biopsy for the left breast mass showed an invasive ductal carcinoma, ERPR positive, HER2 negative. I therefore had a long discussion with her about her options. I explained the technique of mastectomy with sentinel node biopsy. I reviewed the risks of this procedure including but not limited to bleeding, infections, flap necrosis. I also explained the option of proceeding with a lumpectomy via the Hologic localizer with sentinel biopsy. She understands that she will need radiation to the breast to complete treatment if chooses lumpectomy. She understands the benefits, advanced this and disadvantages of each option She says she wants to proceed with lumpectomy via Hologic localizer of the left breast along with the sentinel biopsy In the meantime, I will send her to the medical oncologist for consultation. Her daughter was with her during the visit and they seemed to understand the plan well A certifiied medical data analyst was used during the discussion. Orders: Orders NM sentinel node w imaging 12/30/24 C50.919 - Malignant neoplasm of unspecified site of unspecified female breast Referrals Hematology & Oncology Referral C50.919 - Malignant neoplasm of unspecified site of unspecified female breast Coding Level of Care Code Est Pt Level 4 (99900) Diagnoses Invasive ductal carcinoma of breast C50.919
[2024-12-30 14:42] VITALS: BP 152/70; PULSE 85; BMI 32.1
== END 2024-12-30 15:11 | disposition home or self-care (01) ==
LOC: HO.HGS 14:34
PROVIDERS: PCP Internal Medicine; Visit Provider Surgery
DX: C50.919 Malignant neoplasm of unspecified site of unspecified female breast (principal)
CPT/HCPCS: 99214

== ENCOUNTER → 2024-12-30 14:33 | Outpatient (BNVA) | payer OTHER, SELFPAY | PROVIDERS: PCP Internal Medicine; Visit Provider Surgery | DX: C50.012 Malignant neoplasm of nipple and areola, left female breast (principal); Z17.0 Estrogen receptor positive status [ER+]; Z17.21 Progesterone receptor positive status; Z17.32 Human epidermal growth factor receptor 2 negative status | CPT/HCPCS: 99212 ==

== ENCOUNTER → 2025-01-04 13:50 | Outpatient (BNV) | payer OTHER, SELFPAY | PROVIDERS: PCP Internal Medicine; Referring Provider Internal Medicine; Visit Provider Internal Medicine | DX: C50.912 Malignant neoplasm of unspecified site of left female breast (principal) | CPT/HCPCS: 99205; G2211 ==

== ENCOUNTER 2025-01-07 08:33 | Outpatient (REF) | payer OTHER, SELFPAY ==
--- NOTE | ~2025-01-07 | MR_ITS ---
EXAMINATION: MR BREAST WITHOUT AND WITH CONTRAST, BILATERAL CLINICAL INFORMATION: Recent left breast ultrasound core needle biopsy with pathology of invasive ductal carcinoma . Patient has left breast pain on and off for one to 2 weeks. Strong family history of breast cancer including sister and maternal cousins. COMPARISON: Comparison is made with relevant prior imaging. TECHNIQUE: MR imaging of the breast was performed using T1, T2 and fat saturated techniques. Dynamic multiphase imaging was also performed after the administration of intravenous gadolinium contrast agent. Computer generated 3D reconstruction and enhancement kinetic analysis was ulitized by the radiologist in the interpretation of this examination. FINDINGS: Breast composition: Scattered fibroglandular breast tissue Background parenchymal enhancement: Moderate LEFT BREAST: There is an irregular enhancing mass extending from the nipple posteriorly approximately 42 mm anterior to posterior by 17 mm transverse by 21 mm superior to inferior series 1047 image 102/154 and images 99-110/154. Otherwise no other suspicious enhancing masses or areas of nonmass enhancement. No axillary or internal mammary adenopathy. RIGHT BREAST: No suspicious enhancing masses or areas of non mass enhancement. No axillary adenopathy. Incidental 5 mm right internal mammary lymph node series 1047 image 95/154. Limited views of the chest and abdomen are unremarkable. MR/MR breast BI wo/w con IMPRESSION: Right: No MRI evidence of malignancy. Incidental 5 mm right internal mammary lymph node. Left: Biopsy-proven invasive ductal carcinoma in the retroareolar region anterior depth measuring up to 42 mm extending from the nipple. ASSESSMENT: LEFT BREAST: BI-RADS 6 biopsy-proven malignancy. RIGHT BREAST: BI-RADS 2 benign. RECOMMENDATIONS: The patient is under the care of a breast surgeon for excision and further management of known biopsy-proven malignancy in the left breast. Electronically signed by: Larissa Craven DO 01/11/2025 11:19 AM EDT
== END 2025-01-07 08:34 | disposition home or self-care (01) ==
LOC: HO.MRI 08:33
PROVIDERS: PCP Internal Medicine; Visit Provider Internal Medicine
DX: C50.919 Malignant neoplasm of unspecified site of unspecified female breast (principal); N64.4 Mastodynia
CPT/HCPCS: 77049; A9585

== ENCOUNTER → 2025-01-07 08:40 | Outpatient (BNV) | payer OTHER, SELFPAY | PROVIDERS: PCP Internal Medicine; Visit Provider Internal Medicine | DX: C50.112 Malignant neoplasm of central portion of left female breast (principal) | CPT/HCPCS: 77049 ==

== ENCOUNTER 2025-01-13 09:45 | Outpatient (REF) | payer OTHER, SELFPAY ==
--- NOTE | ~2025-01-13 | MM_ITS ---
EXAMINATION: Ultrasound GUIDED RFID LOCALIZATION BREAST, LEFT CLINICAL INFORMATION: Left breast invasive ductal carcinoma here for tag localization. COMPARISON: Priors on PACS. TECHNIQUE NEEDLE LOC: Proper informed consent is obtained from the patient after discussion of the procedure, potential risks and complications, and alternatives including declining the procedure today. Patient was given an opportunity for questions. The patient appeared to understand. The patient consented to the procedure and signed the consent form. GUIDANCE: Ultrasound. APPROACH: Lateral. TARGET: Retroareolar left breast mass and biopsy clip. ANESTHESIA: Lidocaine 6 ml LOCALIZATION SYSTEM: Ge[employer] LOCallizer Wire-Free Guidance System with 12g needle applicator. RADIOFREQUENCY TAG: ID # [id number] RF Tag ID confirmed with LOCalizer Guidance System prior to placement. The skin is prepped and local anesthesia administered. The needle is positioned and RFID tag deployed. Final images demonstrate the LOCalizer RF tag to reside adjacent to the marker clip and within the biopsied mass The patient tolerated the procedure well and had no immediate complications. Dressing placed and home instructions reviewed. MM/MM tomosynthesis diagnostic LT IMPRESSION: -Status post left breast RFID localization. Electronically signed by: Larissa Craven DO 01/13/2025 12:43 PM EDT
--- NOTE | ~2025-01-13 | US_ITS ---
EXAMINATION: Ultrasound GUIDED RFID LOCALIZATION BREAST, LEFT CLINICAL INFORMATION: Left breast invasive ductal carcinoma here for tag localization. COMPARISON: Priors on PACS. TECHNIQUE NEEDLE LOC: Proper informed consent is obtained from the patient after discussion of the procedure, potential risks and complications, and alternatives including declining the procedure today. Patient was given an opportunity for questions. The patient appeared to understand. The patient consented to the procedure and signed the consent form. GUIDANCE: Ultrasound. APPROACH: Lateral. TARGET: Retroareolar left breast mass and biopsy clip. ANESTHESIA: Lidocaine 6 ml LOCALIZATION SYSTEM: [employer] LOCallizer Wire-Free Guidance System with 12g needle applicator. RADIOFREQUENCY TAG: ID # [id number] RF Tag ID confirmed with LOCalizer Guidance System prior to placement. The skin is prepped and local anesthesia administered. The needle is positioned and RFID tag deployed. Final images demonstrate the LOCalizer RF tag to reside adjacent to the marker clip and within the biopsied mass The patient tolerated the procedure well and had no immediate complications. Dressing placed and home instructions reviewed. US/US Breast RF Tag Device Left IMPRESSION: -Status post left breast RFID localization. Electronically signed by: Larissa Craven DO 01/13/2025 12:43 PM EDT
[2025-01-13] MEDS: Lidocaine HCl 1 % 20 ML VIAL 9 ML SUBCUT (10:44)
== END 2025-01-13 09:46 | disposition home or self-care (01) ==
LOC: HO.MAMMO 09:45
PROVIDERS: PCP Internal Medicine; Visit Provider Surgery
DX: D05.12 Intraductal carcinoma in situ of left breast (principal)
CPT/HCPCS: 19285; 77061; 77065; C1819; J2003

== ENCOUNTER → 2025-01-13 10:00 | Outpatient (BNV) | payer OTHER, SELFPAY | PROVIDERS: PCP Internal Medicine; Visit Provider Internal Medicine | DX: C50.912 Malignant neoplasm of unspecified site of left female breast (principal) | CPT/HCPCS: 19285; 77065 ==

== ENCOUNTER 2025-01-25 11:09 | Day surgery (SDC) | payer OTHER, SELFPAY ==
[2025-01-25] VITALS (12 sets, daily range): BP systolic 115–156; BP diastolic 61–97; PULSE 70–82; RESP 16–27; TEMP 36.4–37.2; O2SAT 95–100; BMI 32.9
--- NOTE | ~2025-01-25 | IR_ITS ---
CLINICAL HISTORY: Left sided breast cancer. The patient presents to interventional radiology for placement of a port for chemotherapy. PROCEDURES: 1. Real-time ultrasound-guided access into the right internal jugular vein after documentation of selected vessel patency, and permanent image storing in the patient records. 2. Placement of a 6.6 Israeli single-lumen port. CLINICIAN: Renny Lopez NP MEDICATIONS: - Versed , Fentanyl , Lidocaine 1% SQ -Antibiotics: Vancomycin 500 mg -For additional details, please see nursing flowsheet. Complications: None. Estimated blood loss: <5 ml Specimens: None. Contrast: None. Fluoroscopy time: 0.9 min MODERATE SEDATION TIME: 32 min PROCEDURE NOTE: The procedure, risks, benefits, and alternatives were carefully explained to the patient and written informed consent was obtained. The patient was placed supine on the fluoroscopy table. A timeout was performed. The right neck and chest was prepped and draped in usual sterile fashion. Maximum barrier technique was utilized. Preliminary ultrasound demonstrated a patent right internal jugular vein. Also noted was a right thyroid exophytic appearing mass with mixed heterogeneity and calcifications. Local anesthesia was administered to the access site with 1% lidocaine. Under ultrasound guidance, the right internal jugular vein was accessed with a 5 fr micropuncture set. A 0.035 in wire was advanced into the IVC. A peel-away sheath was advanced over the wire and into the SVC, and the wire was removed. Next, subcutaneous lidocaine was administered to the chest. The port pocket was created after the skin incision, utilizing blunt dissection. Using blunt dissection, a subcutaneous tunnel was created that connects from the port pocket to the venotomy site. Through the peel-away sheath, the 6.6 Israeli port catheter was placed. The catheter position was verified with fluoroscopy to be at the superior vena cava/right atrial junction. The port was connected to the catheter and was placed in the pocket. The port incision site was closed with interrupted 3-0 Vicryl subcutaneous sutures and surgical glue. Prior to closing the skin, 1 g of vancomycin solution was placed in the pocket. The port was tested, flushed, and packed with heparin per routine protocol. The patient tolerated the procedure well. The patient was stable after the procedure and was transferred to the PACU. The procedure was performed under moderate sedation and with a dedicated nurse with continuous monitoring of vital signs. A permanent image of the ultrasound the neck and fluoroscopic image of the chest was saved and sent to PACS. FINDINGS: 1. Patent right internal jugular vein 2. Placement of a 6.6 Israeli single lumen port. 3. Port flushes and aspirates very well with a 10 mL syringe. No pneumothorax. 4. Right thyroid exophytic appearing mass with mixed heterogeneity and calcification. IR/IR cvc insert tunnel w prt/manager in training IMPRESSION: Placement of a 6.6 Israeli single-lumen port. PLAN: - The patient will be discharged home when stable by sedation protocol. - Port may be used immediately. -Primary care provider follow up regarding thyroid mass. Recommendations for further testing such as ultrasound or CT. This procedure was performed by Renny Lopez NP and directly supervised by Quan Escalera MD. Electronically signed by: Quan Escalera MD 02/03/2025 02:41 PM EDT
[2025-01-25 12:44] LABS: INTERNATIONAL NORM RATIO 1.0 (0.9-1.1); Prothrombin Time 11.8 SEC (10.9-12.4)
== END 2025-01-25 15:50 | disposition home or self-care (01) ==
PROVIDERS: Radiology Diagnostic Radiology; PCP Internal Medicine; Visit Provider Internal Medicine
DX: Z45.2 Encounter for adjustment and management of vascular access device (principal); C50.812 Malignant neoplasm of overlapping sites of left female breast; C7A.8 Other malignant neuroendocrine tumors; Z17.0 Estrogen receptor positive status [ER+]; Z17.21 Progesterone receptor positive status; Z17.32 Human epidermal growth factor receptor 2 negative status; Z80.3 Family history of malignant neoplasm of breast; F33.0 Major depressive disorder, recurrent, mild; F41.9 Anxiety disorder, unspecified; I10 Essential (primary) hypertension; E78.2 Mixed hyperlipidemia; E66.9 Obesity, unspecified; Z68.31 Body mass index [BMI] 31.0-31.9, adult; M25.462 Effusion, left knee; M25.562 Pain in left knee; M51.369 Other intervertebral disc degeneration, lumbar region without mention of lumbar back pain or lower extremity pain; Z90.49 Acquired absence of other specified parts of digestive tract; Z98.51 Tubal ligation status; Z79.899 Other long term (current) drug therapy; Z88.0 Allergy status to penicillin; Z88.6 Allergy status to analgesic agent; Z88.8 Allergy status to other drugs, medicaments and biological substances; Z56.0 Unemployment, unspecified
CPT/HCPCS: 36415; 36561; 76937; 85610; 99152; 99153; C1769; C1788; J1642; J1644; J2003; J2250; J3010; J3374; Q9967

== ENCOUNTER → 2025-01-25 12:59 | Outpatient (BNV) | payer OTHER, SELFPAY | PROVIDERS: PCP Internal Medicine | DX: C50.812 Malignant neoplasm of overlapping sites of left female breast (principal) | CPT/HCPCS: 36561; 76937; 77001 ==

== ENCOUNTER 2025-02-10 16:52 | Emergency (ER) | payer OTHER, SELFPAY ==
[2025-02-10 17:10] VITALS: BMI 32.9
[2025-02-10 17:12] VITALS: BP 150/69; PULSE 87; RESP 18; TEMP 37.1; O2SAT 97
--- NOTE | 2025-02-10 17:17 | PC.NURSE ---
Addendum entered by Ivone Lobo RN 02/10/25 17:18: Patient is a 65 yo female newly diagnosed withLeft breast invasive ductal carcinoma 12/2024. Diagnosed with left breast invasive ductal carcinoma on screening mammogram. She herself did not feel palpable lump or mass. She underwent screening mammogram in June 2024 which was read as incomplete, need additional views of the left breast. This was performed 11/29/2024, diagnostic mammogram and breast ultrasound which revealed irregular hypoechoic solid mass at 12:00, 2 cm from the nipple measuring 1.6 x 1.2 cm in the retroareolar region. Patient received her 1st dose of chemo and was noted to be crying inconsolably and was sent for a CARE team eval. Patient alert and oriented, primarily kazakh speaking. Calm and cooperative, denies any anxiety, SI or HI. CARE team at the bedside to evaluate. Original Note: Medical History Anxiety Effusion, left knee Essential hypertension Invasive ductal carcinoma of breast Left breast mass Left knee pain Lumbar degenerative disc disease Mild recurrent major depression Mixed hyperlipidemia Physical exam Severe obesity (BMI 35.0-35.9 with comorbidity) Severe obesity with body mass index (BMI) of 36.0 to 36.9 with serious comorbidity
--- NOTE | 2025-02-10 17:36 | ED.ANXIETY ---
HPI - Anxiety General Chief Complaint: Behavioral Concerns Stated Complaint: Per Care Team Time Seen by Provider: 02/10/25 17:35 Source: patient, family, old records reviewed and radiopharmacist Mode of arrival: ambulatory Limitations: no limitations History of Present Illness ED Provider: NISHANT HPI narrative: 65 yo female with PMH of anxiety, HLD, HTN who is seen by Dr. Siegel for breast cancer. She has had increasing anxiety and was very tearful and upset at her 1st chemo infusion today. Family notes she has been put on a new med sertraline 50mg daily but it is not helping. She was taken off the clonazepam which she takes prior to visits and procedures. She has no SI/HI. She has appointment with provider in 1 week. They are here needing med bridge. complaint: anxiety Onset (ago): day(s) Symptoms: other (anxiety) Severity: moderate Quality: constant History of similar episodes: Yes Provoking factors: emotional stress Relieving factors: medication Exacerbating factors: nothing Associated symptoms: denies other symptoms Related Data Home Medications ?Medication ?Instructions ?Recorded ?Confirmed bupropion HCl 300 mg 24 hr tablet, 300 mg PO QAM 05/31/20 01/25/25 extended release acetaminophen 650 mg 1,300 mg PO Q12H 11/22/21 01/25/25 tablet,extended release (Tylenol Arthritis Pain) Previous Rx's ?Medication ?Instructions ?Recorded trazodone 50 mg tablet 100 mg (2 x 50 mg) PO BEDTIME PRN 07/28/20 insomnia 90 days #90 tabs walker #1 ea 01/30/21 Shower Chair #1 ea 10/09/22 cholestyramine (with sugar) 4 gram 4 g PO DAILY PRN diarrhea 30 days 07/14/23 oral powder #378 grams ibuprofen 400 mg tablet 400 mg PO Q8H PRN pain 30 days #90 09/05/23 tabs amlodipine 10 mg tablet 10 mg PO DAILY 90 days #90 tabs 03/25/24 chlorthalidone 50 mg tablet 50 mg PO DAILY 90 days #90 tabs 03/25/24 fenofibrate 54 mg tablet 54 mg PO DAILY 90 days #90 tabs 03/25/24 lisinopril 40 mg tablet 40 mg PO DAILY 90 days #90 tabs 08/09/24 adult diapers #100 ea 08/25/24 atorvastatin 80 mg tablet 80 mg PO BEDTIME 90 days #90 tabs 11/05/24 Elevated toilet seat with handles #1 ea 12/28/24 blood pressure test kit-large #1 ea 12/28/24 cholecalciferol (vitamin D3) 50 50 mcg PO DAILY 90 days #90 caps 01/17/25 mcg (2,000 unit) capsule dexamethasone 4 mg tablet 4 mg PO BID #15 tabs 02/03/25 ondansetron 8 mg disintegrating 8 mg PO Q8H PRN Nausea #30 tabs 02/03/25 tablet clonazepam 0.5 mg tablet (Klonopin) 0.5 mg PO BID PRN anxiety #16 tabs 02/10/25 Allergies Allergy/AdvReac Type Severity Reaction Status Date / Time aspirin (ASA) Allergy Intermediate PALPITATION Verified 02/10/25 17:12 S Penicillins (PENICILLINS) Allergy Intermediate RASH Verified 02/10/25 17:12 topiramate AdvReac Intermediate headache Verified 02/10/25 17:12 Review of Systems Review of Systems: Constitutional : No Fever, No Chills ENT/Mouth : No Ear Pain, No Nasal Congestion, No sore throat Eyes: No Eye Pain, No Swelling, No Redness Cardiovascular : No Chest Pain, No SOB Respiratory : No Cough, No Sputum, No Dyspnea Gastrointestinal : No Nausea, No Vomiting, No Diarrhea, No Hematochezia, No Melena Genitourinary : No Dysuria, No Urinary Frequency, No Hematuria Musculoskeletal : No Myalgias Skin : No Skin Lesions, No rash Neuro : No Weakness, No Numbness, No Paresthesias, No Dizziness, No Headache Psych : positive Anxiety, positive Depression, no SI/HI All other systems reviewed and are negative [facility] Past Medical History Attestation statement: The following information was validated with the patient. Source: old records reviewed Medical History Invasive ductal carcinoma of breast Left breast mass Severe obesity (BMI 35.0-35.9 with comorbidity) Physical exam Effusion, left knee Severe obesity with body mass index (BMI) of 36.0 to 36.9 with serious comorbidity Mild recurrent major depression Left knee pain Lumbar degenerative disc disease Anxiety Mixed hyperlipidemia Essential hypertension Surgical History History of tubal ligation History of laparoscopic cholecystectomy Family History Family History Father Myocardial infarction Alcoholism Mother Stroke Diabetes Hypertension Sister Breast cancer Son No problems noted. Family/Other FH: mental illness Mental health disorder Social History Social History Household Members: None Housing: House Are you a primary career representative to a significant other at home: No Do you presently have visiting nurse or other home services: No Alcohol intake: never Patient Tobacco Use Status: Never used Tobacco Smoked in Last 30 Days: No e-Cigarette/Vaping Use: Never Used Second Hand Smoke Exposure: No Use of substances other than those prescribed or required for medical reasons: No service: No Current occupational status: unemployed Cognitive needs: Yes Hearing needs: No Vision needs: Yes Physical Exam Vital Signs: Vital Signs: Last Vital Signs Temp 98.7 F 02/10/25 17:12 Pulse 87 02/10/25 17:12 Resp 18 02/10/25 17:12 BP 150/69 H 02/10/25 17:12 Pulse Ox 97 02/10/25 17:12 O2 Del Method Room Air 02/10/25 17:12 BMI result Body Mass Index 32.9 Appearance: Alert. Oriented X3. No acute distress. Eyes: Pupils equal, round and reactive to light. ENT: Pharynx normal. Neck: Normal inspection. Neck supple. CVS: Normal heart rate and rhythm. Pulses normal. Respiratory: No respiratory distress. Breath sounds normal. Abdomen: Soft and nontender. Skin: Skin warm and dry. Normal skin color. Normal skin turgor. Extremities: No lower extremity edema. Neuro: Oriented X 3. No motor deficit. No sensory deficit. CN2-12 intact Medical Decision Making Medical Decision Making MDM Narrative: 65 yo female with PMH of anxiety, HLD, HTN who is seen by Dr. Siegel for breast cancer now here with anxiety due to chemo she has no SI/HI she has no delusions she will need her PRN medication given her current states and need for treatments. Differential Diagnosis Differential Diagnoses: The differential diagnosis associated with the presentation includes anxiety Admission/Observation Consideration of admission/observation: Escalation of care including admission/observation considered has no medical concerns at this time and no Si/HI does not need admission will give rx for clonazepam and DC Consult Healthcare Provider Management of the patient was discussed with: Behavioral Health Provider Independent Historian Clinical information obtained from an independent historian. History obtained from or confirmed by: Other External Record Review External record reviewed: Inpatient record, Outpatient record and Prior outpatient labs Prescription Management I considered prescription management with: Other Discharge Plan Discharge Clinical Impression: Anxiety Patient Disposition: Home, Self-Care Instructions: Anxiety (ED) Additional Instructions: you should follow up with your prescriber for further management of your anxiety please return for any worsening symptoms or concerns. You were seen in our Emergency Department today for treatment of a behavioral health issue. It is important after your visit that you follow up with either your behavioral health provider or a primary care doctor within 7 days.? If you have trouble finding a therapist you can reach out to [address] [phone] The [email or web address] Suicide and Crisis Lifeline can be reached 7 days a week 24 hours a day.? Call [phone] to speak with someone.? Return for any worsening symptoms or concerns such as thoughts of self harm or harm to others. Please call 911 if you feel your mental health is worsening.? Prescriptions: New clonazepam [Klonopin] 0.5 mg tablet 0.5 mg PO BID PRN (Reason: anxiety) Qty: 16 0RF No Action trazodone 50 mg tablet 100 mg PO BEDTIME PRN (Reason: insomnia) 90 Days Qty: 90 3RF (DME) Shower Chair Misc See Rx Instructions .Route Qty: 1 0RF Rx Instructions: As directed ibuprofen 400 mg tablet 400 mg PO Q8H PRN (Reason: pain) 30 Days Qty: 90 3RF lisinopril 40 mg tablet 40 mg PO DAILY 90 Days Qty: 90 3RF (DME) adult diapers XL See Rx Instructions .Route .MEDSUPPLY Qty: 100 0RF Rx Instructions: As directed atorvastatin 80 mg tablet 80 mg PO BEDTIME 90 Days Qty: 90 1RF (DME) blood pressure test kit-large Kit See Rx Instructions .Route Qty: 1 0RF Rx Instructions: As directed (DME) Elevated toilet seat with handles See Rx Instructions .Route .MEDSUPPLY Qty: 1 0RF Rx Instructions: As directed cholecalciferol (vitamin D3) 50 mcg (2,000 unit) capsule 50 mcg PO DAILY 90 Days Qty: 90 1RF ondansetron 8 mg Tablet,Disintegrating 8 mg PO Q8H PRN (Reason: Nausea) Qty: 30 0RF dexamethasone 4 mg Tablet 4 mg PO BID Qty: 15 0RF Rx Instructions: For 2 days after chemotherapy (DME) walker [facility] See Rx Instructions .ROUTE .MEDSUPPLY Qty: 1 0RF Rx Instructions: with seat and wheels bupropion HCl 300 mg tablet extended release 24 hr 300 mg PO QAM cholestyramine (with sugar) 4 gram powder 4 g PO DAILY PRN (Reason: diarrhea) 30 Days Qty: 378 3RF Rx Instructions: administer w/meal; avoid other meds within 1hr before or 4-6hr after dose acetaminophen [Tylenol Arthritis Pain] 650 mg tablet extended release 1,300 mg PO Q12H amlodipine 10 mg tablet 10 mg PO DAILY 90 Days Qty: 90 2RF chlorthalidone 50 mg tablet 50 mg PO DAILY 90 Days Qty: 90 3RF fenofibrate 54 mg tablet 54 mg PO DAILY 90 Days Qty: 90 3RF Print Language: Chinese
[2025-02-10 17:54] VITALS: BP 150/69; PULSE 87; RESP 18; TEMP 37.1; O2SAT 97
== END 2025-02-10 18:26 | disposition home or self-care (01) ==
LOC: HO.ED 18:10
PROVIDERS: Emergency Provider Emergency Medicine; PCP Student in an Organized Health Care Education/Training Program
DX: F41.9 Anxiety disorder, unspecified (principal); F43.9 Reaction to severe stress, unspecified; Z79.899 Other long term (current) drug therapy
CPT/HCPCS: 99284; S9485

== ENCOUNTER → 2025-02-23 10:56 | Outpatient (BNV) | payer OTHER, SELFPAY | PROVIDERS: PCP Internal Medicine; Visit Provider Internal Medicine | DX: Z01.818 Encounter for other preprocedural examination (principal) | CPT/HCPCS: 93306 ==

== ENCOUNTER 2025-04-12 10:51 | Outpatient (AMB) | payer OTHER, SELFPAY ==
[2025-04-12 10:57] VITALS: BP 138/62; PULSE 70; RESP 18; TEMP 36.2; O2SAT 98; BMI 28.8
--- NOTE | 2025-04-12 10:57 | MHC.PC.OV ---
Vital Signs 04/12/25 10:57 Height 5 ft 8 in Weight 189 lb 8 oz BMI 28.8 BP 138/62 Blood Pressure Location Lt brachial Position Sitting Respiration 18 Pulse 70 Pulse Source Pulse Oximeter Temp 97.1 F Temp Source Temporal Artery Scan Pulse Oximetry (%) 98 Oxygen Delivery Method Room Air Intake Visit Reasons: bp Performance Consultant Required: No Accompanied by: Self / Same As Patient Allergies aspirin (ASA) Allergy (Intermediate, Verified 04/12/25 11:15) PALPITATIONS Penicillins (PENICILLINS) Allergy (Intermediate, Verified 04/12/25 11:15) RASH topiramate Adverse Reaction (Intermediate, Verified 04/12/25 11:15) headache Medication List - Last Reconciled 04/12/25 by Olya Wolf MD acetaminophen ER (Tylenol Arthritis Pain) 1,300 mg PO Q12H [adult diapers As directed] amlodipine 10 mg PO DAILY 90 days atorvastatin 80 mg PO BEDTIME 90 days blood pressure test kit-large As directed bupropion HCl XL 300 mg PO QAM chlorthalidone 50 mg PO DAILY 90 days cholecalciferol (vitamin D3) 50 mcg PO DAILY 90 days cholestyramine (with sugar) 4 gram 4 grams PO DAILY PRN 30 days clonazepam (Klonopin) 0.5 mg PO BID PRN dexamethasone 4 mg PO BID diphenoxylate-atropine 2.5-0.025 mg 1 tab PO DAILY PRN [Elevated toilet seat with handles As directed] fenofibrate 54 mg PO DAILY 90 days furosemide (Lasix) 20 mg PO DAILY ibuprofen 400 mg PO Q8H PRN 30 days lisinopril 40 mg PO DAILY 90 days olanzapine 5 mg PO DAILY omeprazole 20 mg PO DAILY omeprazole 20 mg PO DAILY ondansetron 8 mg PO Q8H PRN potassium chloride ER 20 mEq PO BID prochlorperazine maleate (Compazine) 10 mg PO Q8H PRN Shower Chair As directed trazodone 100 mg (2 x 50 mg) PO BEDTIME PRN 90 days walker with seat and wheels Tobacco use date assessed: 04/12/25 Fall risk assessment: No Falls in past year Last assessed Fall Risk: 04/12/25 Dental Screening Dental Screen Date: 04/12/25 Did you have a dental visit in the last 12 months?: No Did you have a dental problem in the last 6 months where you did not have access to dental care?: No Was dental information given to patient?: No HPI HPI Comments History of Present Illness Details The patient is a 65-year-old female presenting for management of chronic conditions and new complaints of fatigue and imbalance. The patient reports feeling tired, sleeping a lot, and experiencing fatigue with exertion such as walking. A family member notes that on some days the patient appears to have imbalance while walking. It started when the chemotherapy started. She was diagnosed with invasive ductal carcinoma of the breast few months ago and surgery will be done after chemotherapy. Follows with surgeon and Hematology-Oncology. The patient has a history of severe hypertension which has been well controlled without the need of taking her antihypertensives. She has a history of being overweight but has recently lost a significant amount of weight. She also has GERD and has been stable without PPIs. Has history of mixed hyperlipidemia and lipid panel will be order in the next 4 months. Fenofibrate walks discontinue today. Also has mild major depression that has been in remission. [facility] Medical History (Updated 04/12/25 @ 12:06 by Olya Wolf MD) Invasive ductal carcinoma of breast Left breast mass Severe obesity (BMI 35.0-35.9 with comorbidity) Physical exam Effusion, left knee Severe obesity with body mass index (BMI) of 36.0 to 36.9 with serious comorbidity Mild recurrent major depression Left knee pain Lumbar degenerative disc disease Anxiety Mixed hyperlipidemia Essential hypertension Surgical History History of tubal ligation History of laparoscopic cholecystectomy Family History Father Myocardial infarction Alcoholism Mother Stroke Diabetes Hypertension Sister Breast cancer Son No problems noted. Family/Other FH: mental illness Mental health disorder Social History Household Members: None Housing: House Are you a primary healthcare risk control consultant to a significant other at home: No Do you presently have visiting nurse or other home services: No Alcohol intake: never Patient Tobacco Use Status: Never used Tobacco e-Cigarette/Vaping Use: Never Used Second Hand Smoke Exposure: No service: No Current occupational status: unemployed Cognitive needs: Yes Hearing needs: No Vision needs: Yes Questionnaire Thrive Questionnaire Date Thrive assessed: 12/06/24 DOUG-7 AMB Questionnaire DOUG-7 Date DOUG - 7 assessed: 08/03/24 Source: Developed by Drs. Teddy Weber, Mehreen Waterman, Scooter Ingram and colleagues, with an educational lady from [employer]. Review of Systems Const All systems reviewed & are unremarkable except as noted in HPI and below Card Denies chest pain at rest, Denies chest pain with activity, Denies edema, Denies irregular heart rhythm, Denies claudication, Denies dyspnea, Denies dyspnea on exertion, Denies orthopnea, Denies paroxysmal nocturnal dyspnea and Denies slow heart rate Resp Denies cough, Denies dyspnea and Denies dyspnea on exertion GI Denies abdominal pain, Denies change in bowel habits, Denies excessive flatus, Denies nausea and Denies vomiting Denies urinary incontinence, Denies urinary hesitancy and Denies urinary urgency Physical exam (Primary Care) Vital Signs: Last Vital Signs Temp 97.1 F 04/12/25 10:57 Pulse 70 04/12/25 10:57 Resp 18 04/12/25 10:57 BP 138/62 04/12/25 10:57 Pulse Ox 98 04/12/25 10:57 Oxygen Delivery Method Room Air 04/12/25 10:57 BMI result Body Mass Index 28.8 Tobacco/Smoking Status: Tobacco use Status Tobacco use date assessed 04/12/25 04/12/25 11:08 Patient Tobacco Use Status Never used Tobacco 04/12/25 11:08 e-Cigarette/Vaping Use Never Used 04/12/25 11:08 Thrive Assessment: Date of Thrive Assessment Date Thrive assessed 12/06/24 04/12/25 11:08 Resp Effort & Inspection: normal respiratory effort Auscultation: clear to auscultation bilaterally Cardio Jugular venous distension: no JVD Rate: regular rate Rhythm: regular rhythm Heart sounds: S1 normal heart sound present and S2 normal heart sound present Extrem General: Yes full ROM Coding Level of Care Code Est Pt Level 4 (26768) Complex EM visit Add On G2211 Diagnoses Essential hypertension I10 Mixed hyperlipidemia E78.2 Mild recurrent major depression F33.0 Invasive ductal carcinoma of breast C50.919 Chronic GERD K21.9 Time Spent (min) 21 Assessment & Plan Assessment & Plan (1) Essential hypertension: Code(s): I10 - Essential (primary) hypertension Category: Medical (2) Mixed hyperlipidemia: Code(s): E78.2 - Mixed hyperlipidemia Category: Medical (3) Mild recurrent major depression: Code(s): F33.0 - Major depressive disorder, recurrent, mild Category: Medical (4) Invasive ductal carcinoma of breast: Code(s): C50.919 - Malignant neoplasm of unspecified site of unspecified female breast Category: Medical (5) Chronic GERD: Code(s): K21.9 - Gastro-esophageal reflux disease without esophagitis Category: Medical Plan Plan 1. Invasive ductal carcinoma of the breast Continue chemotherapy. Follow-up with Hematology-Oncology and surgeon. 2. Mild major depression In remission 3. Essential (Primary) Hypertension The patient has a history of severe hypertension that decrease when she started chemotherapy. At the moment she is not using any medication. Blood pressure goal is equal or less than 130/80. 4. Mixed hyperlipidemia Repeat lipid panel in 4 months. Orders: Orders Comprehensive [employer]. Panel Fast 4 Months I10 - Essential (primary) hypertension Lipid Panel 4 Months E78.5 - Hyperlipidemia, unspecified Medications: Refilled [Elevated toilet seat with handles rounded] As directed 1 ea 0RF M17.0 - Bilateral primary osteoarthritis of knee, M51.36 - Other intervertebral disc degeneration, lumbar region blood pressure test kit-large As directed 1 ea 0RF I10 - Essential (primary) hypertension Discontinued fenofibrate Discontinued Reason: Patient Completed Course 54 mg PO DAILY 90 days 90 tabs 3RF E78.2 - Mixed hyperlipidemia
== END 2025-04-12 11:28 | disposition home or self-care (01) ==
LOC: HO.HMCH 10:51
PROVIDERS: PCP Internal Medicine; Visit Provider Internal Medicine
DX: I10 Essential (primary) hypertension (principal); E78.2 Mixed hyperlipidemia; F33.0 Major depressive disorder, recurrent, mild; C50.919 Malignant neoplasm of unspecified site of unspecified female breast; K21.9 Gastro-esophageal reflux disease without esophagitis

== ENCOUNTER 2025-04-12 11:27 | Outpatient (REF) | payer OTHER, SELFPAY ==
--- NOTE | ~2025-04-12 | MM_ITS ---
EXAMINATION: DXA BONE DENSITY AXIAL HISTORY: Z78.0 - Asymptomatic menopausal state TECHNIQUE: NuPotential Dual energy absorptiometry (DEXA) of the lumbar spine, total left hip, and femoral neck was performed. COMPARISON: Comparison is made with the prior examinations, most recent dated July 2022. FINDINGS: The bone mineral density of the lumbar spine is 1.38 g/cm2, corresponding to a T-score of 1.7, and a Z-score of 2.6. This is indicative of normal bone mineral density. This represents a BMD change of 5.6% compared to the prior exam. The bone mineral density of the left total hip is 0.970 g/cm2, corresponding to a T-score of -0.3, and a Z-score of 0.5. This is indicative of normal bone mineral density. This represents a BMD change of 5.2% compared to the prior exam. The bone mineral density of the left femoral neck is 0.942 g/cm2, corresponding to a T-score of -0.7, and a Z-score of 0.4. This is indicative of normal bone mineral density. This represents a BMD change of 10.6% compared to the prior exam. MM/XR DEXA axial skeleton IMPRESSION: Based on bone mineral density, and according to World Health Organization (WHO) criteria, the diagnosis is consistent with normal based on lowest T score of -0.7 in the left femoral neck. Statistically, 68% of repeat scans fall within 1 SD (+/- 0.010 g/cm2 for AP spine L1-L4) and 1 SD (+/- 0.012 g/cm2 for femur total) FRAX is a trademark of the [employer]'s [place] for Metabolic Bone Disease, a World Health Organization (WHO) Collaborating Center. Electronically signed by: Jennifer Beaver MD 04/12/2025 12:04 PM [facility] [place]
== END 2025-04-12 11:28 | disposition home or self-care (01) ==
LOC: HO.MAMMO 11:27
PROVIDERS: PCP Internal Medicine; Visit Provider Internal Medicine
DX: Z13.820 Encounter for screening for osteoporosis (principal); Z78.0 Asymptomatic menopausal state; I10 Essential (primary) hypertension; E78.2 Mixed hyperlipidemia; F33.0 Major depressive disorder, recurrent, mild; K21.9 Gastro-esophageal reflux disease without esophagitis; Z85.3 Personal history of malignant neoplasm of breast
CPT/HCPCS: 77080; 99212

== ENCOUNTER → 2025-04-12 11:30 | Outpatient (BNV) | payer OTHER, SELFPAY | PROVIDERS: PCP Internal Medicine; Visit Provider Radiology Diagnostic Radiology | DX: E28.39 Other primary ovarian failure (principal) | CPT/HCPCS: 77080 ==

== ENCOUNTER 2025-04-20 13:50 | Outpatient (AMB) | payer OTHER, SELFPAY ==
--- NOTE | 2025-04-20 14:03 | A.OFFVIS_ITS ---
Vital Signs 04/20/25 14:11 Height 5 ft 8 in Weight 191 lb 12.835 oz BMI 29.2 Intake Visit Reasons: Ductal carcinoma Intake Note: This patient presents for a follow-up for invasive ductal carcinoma of left breast. Pt's daughter c/o; reports loss of apptite, reports sour taste when she eats food and this makes her not want to eat, finished Chemo 4 cycles every 21 days, reports swelling hands and due to treatment her hands feel like they got burnt. 06/22/24: Bone density 04/13/25: Dr. Siegel Facilities Mechanical Design Engineer Required: Yes Facilities Mechanical Design Engineer Language: Latin Dance Instructor Services: Facilities Mechanical Design Engineer Present Facilities Mechanical Design Engineer Name: Mahamed Information Interpreted: non-clinical & clinical Accompanied by: Daughter Allergies aspirin (ASA) Allergy (Intermediate, Verified 04/20/25 14:10) PALPITATIONS Penicillins (PENICILLINS) Allergy (Intermediate, Verified 04/20/25 14:10) RASH topiramate Adverse Reaction (Intermediate, Verified 04/20/25 14:10) headache Medication List - Last Reconciled 04/20/25 by Jason Roblero MD acetaminophen ER (Tylenol Arthritis Pain) 1,300 mg PO Q12H [adult diapers As directed] amlodipine 10 mg PO DAILY 90 days atorvastatin 80 mg PO BEDTIME 90 days blood pressure test kit-large As directed bupropion HCl XL 300 mg PO QAM chlorthalidone 50 mg PO DAILY 90 days cholecalciferol (vitamin D3) 50 mcg PO DAILY 90 days cholestyramine (with sugar) 4 gram 4 grams PO DAILY PRN 30 days clonazepam (Klonopin) 0.5 mg PO BID PRN dexamethasone 4 mg PO BID diphenoxylate-atropine 2.5-0.025 mg 1 tab PO DAILY PRN [Elevated toilet seat with handles rounded As directed] furosemide (Lasix) 20 mg PO DAILY ibuprofen 400 mg PO Q8H PRN 30 days lisinopril 40 mg PO DAILY 90 days olanzapine 5 mg PO DAILY omeprazole 20 mg PO DAILY omeprazole 20 mg PO DAILY ondansetron 8 mg PO Q8H PRN potassium chloride ER 20 mEq PO BID prochlorperazine maleate (Compazine) 10 mg PO Q8H PRN Shower Chair As directed [shower chair As directed] trazodone 100 mg (2 x 50 mg) PO BEDTIME PRN 90 days walker with seat and wheels HPI HPI Ductal carcinoma: Details: 65-year-old female here for follow-up for invasive ductal carcinoma. She had been diagnosed last December, for left breast invasive ductal carcinoma. Her MRI at that time showed that the tumor probably was 42 mm in widest dimension. She was therefore seen by Oncology and Dr. Siegel had recommended proceeding with neoadjuvant treatment. She had been on Taxotere and cyclophosphamide She says she has tolerated chemotherapy but does complain of loss of appetite, fatigue, as well as skin changes on her hands . [facility] Medical History Invasive ductal carcinoma of breast Left breast mass Severe obesity (BMI 35.0-35.9 with comorbidity) Physical exam Effusion, left knee Severe obesity with body mass index (BMI) of 36.0 to 36.9 with serious comorbidity Mild recurrent major depression Left knee pain Lumbar degenerative disc disease Anxiety Mixed hyperlipidemia Essential hypertension Surgical History History of tubal ligation History of laparoscopic cholecystectomy Family History Father Myocardial infarction Alcoholism Mother Stroke Diabetes Hypertension Sister Breast cancer Son No problems noted. Family/Other FH: mental illness Mental health disorder Social History Household Members: None Housing: House Are you a primary wound care center consultant to a significant other at home: No Do you presently have visiting nurse or other home services: No Alcohol intake: never Patient Tobacco Use Status: Never used Tobacco e-Cigarette/Vaping Use: Never Used Second Hand Smoke Exposure: No service: No Current occupational status: unemployed Cognitive needs: Yes Hearing needs: No Vision needs: Yes Review of Systems Const Denies chills, Denies fever(s), Reports lethargy and Reports poor appetite Card Denies chest pain at rest GI Denies abdominal pain Denies difficulty voiding Psych Reports depression Physical Exam Vital Signs: BMI result Body Mass Index 29.2 Const Other: Obese General: No comfortable or no acute distress Chest Other: Both breasts are large and pendulous, no palpable breast mass on the left, no axillary lymphadenopathy, no nipple or skin changes Resp Effort & Inspection: normal respiratory effort GI Palpation (GI): Soft to palpation Assessment & Plan Assessment & Plan (1) Invasive ductal carcinoma of breast: Code(s): C50.919 - Malignant neoplasm of unspecified site of unspecified female breast Category: Medical Plan: She had undergone neoadjuvant chemotherapy because of the large size of the breast. Currently, the breast masses nonpalpable and I do not feel any lymphadenopathy on the axilla I am waiting for the MRI of the left breast to determine response to neoadjuvant treatment. I will see her again in the office after and we will discuss the next step in her care She understands the option of lumpectomy versus mastectomy, both with sentinel node biopsy. We will have a more detailed discussion on her next visit Her daughter was with her during the visit. Coding Level of Care Code Est Pt Level 3 (47282) Diagnoses Invasive ductal carcinoma of breast C50.919
[2025-04-20 14:11] VITALS: BMI 29.2
== END 2025-04-20 14:43 | disposition home or self-care (01) ==
LOC: HO.HGS 13:51
PROVIDERS: PCP Internal Medicine; Visit Provider Surgery
DX: C50.919 Malignant neoplasm of unspecified site of unspecified female breast (principal)
CPT/HCPCS: 99213

== ENCOUNTER → 2025-04-20 13:50 | Outpatient (BNVA) | payer OTHER, SELFPAY | PROVIDERS: PCP Internal Medicine; Visit Provider Surgery | DX: C50.912 Malignant neoplasm of unspecified site of left female breast (principal); Z92.21 Personal history of antineoplastic chemotherapy | CPT/HCPCS: 99212 ==

== ENCOUNTER 2025-05-17 08:11 | Outpatient (REF) | payer OTHER, SELFPAY ==
--- NOTE | ~2025-05-17 | US_ITS ---
EXAMINATION(S): 1. MM DIAGNOSTIC DIGITAL BREAST TOMOSYNTHESIS, BILATERAL 2. TARGETED ULTRASOUND OF THE LEFT BREAST CLINICAL INFORMATION: -Left breast ultrasound-guided needle core biopsy of left breast mass at 12 o'clock position 2 cm from the nipple measuring 1.6 x 0.7 x 1.2 cm in December 2024. Pathology results showed invasive ductal carcinoma. - Localizer tag placement on January 13, 2025. -January 07, 2025: Breast MRI. -Completed four cycles of chemotherapy. Waiting to repeat imaging and go for surgery. COMPARISON: Comparison made to multiple prior, most recent left postprocedure mammogram on January 13, 2025, and most remote October 14, 2017. TECHNIQUE: Digital breast tomosynthesis is performed in both the mediolateral oblique and craniocaudal views along with computer-aided detection (CAD). Synthesized 2D images are generated from the tomosynthesis. Spot compression tomosynthesis of the left breast were obtained. FINDINGS: BREAST COMPOSITION: There are scattered areas of fibroglandular density. RIGHT BREAST: No significant masses, suspicious calcifications or other abnormalities are seen. LEFT BREAST: Redemonstration of biopsy-proven mass containing biopsy clip in the subareolar region, slightly upper breast, centered at about 1.5 cm from the nipple, showing mild interval decrease in size compared to the June 2024. A LOCalizer clip is present in the immediate vicinity. No new masses, suspicious calcifications or other abnormalities are seen. Targeted ultrasound of the left breast was performed at the location of the previously described sonographic finding. The survey shows a 1.7 x 0.7 x 0.9 cm irregular hypoechoic mass at 12 o'clock position 2 cm from the nipple, associated with internal vascularity on the color Doppler evaluation. Prior measurements were 1.6 x 0.7 x 1.2 cm in November 2024. US/US Breast LT Limited Mamm Only IMPRESSION: RIGHT BREAST: Negative, no mammographic evidence of malignancy. Normal interval follow-up is recommended in 12 months. LEFT BREAST: Interval decrease in size of the biopsy-proven malignancy located at 12 o'clock position 2 cm from the nipple. Current sonographic measurements of 1.7 x 0.7 x 0.9 cm. ASSESSMENT: BI-RADS: Category 6: Known Biopsy-Proven Malignancy RECOMMENDATION: Surgical Consult Results were provided to the patient at time of visit by the technologist. This patient's information was entered into a reminder system with a target due date for their next mammogram. Electronically signed by: Dominik Palm MD 05/17/2025 10:12 AM LY
== END 2025-05-17 08:12 | disposition home or self-care (01) ==
LOC: HO.MAMMO 08:11
PROVIDERS: PCP Internal Medicine; Visit Provider Internal Medicine
DX: C50.412 Malignant neoplasm of upper-outer quadrant of left female breast (principal)
CPT/HCPCS: 76642; 77062; 77066

== ENCOUNTER → 2025-05-17 09:00 | Outpatient (BNV) | payer OTHER, SELFPAY | PROVIDERS: PCP Internal Medicine; Visit Provider Radiology Body Imaging | DX: Z85.3 Personal history of malignant neoplasm of breast (principal); Z08 Encounter for follow-up examination after completed treatment for malignant neoplasm | CPT/HCPCS: 76642; 77066; G0279 ==

== ENCOUNTER 2025-05-19 09:16 | Outpatient (AMB) | payer OTHER, SELFPAY ==
--- NOTE | 2025-05-19 09:17 | MHC.OFFVIS ---
Vital Signs 05/19/25 09:23 Height 5 ft 8 in Weight 195 lb BMI 29.6 Intake Visit Reasons: mri results Intake Note: Patient presents for breast MRI and breast US results. Pt c/o; no new complaints. Help Desk Associate Required: Yes Help Desk Associate Language: Dispatcher [employer] Services: Help Desk Associate Present Help Desk Associate Name: KyungREINA Information Interpreted: non-clinical & clinical Accompanied by: Daughter Allergies aspirin (ASA) Allergy (Intermediate, Verified 05/19/25 09:24) PALPITATIONS Penicillins (PENICILLINS) Allergy (Intermediate, Verified 05/19/25 09:24) RASH topiramate Adverse Reaction (Intermediate, Verified 05/19/25 09:24) headache HPI HPI mri results: Details: 65-year-old female here for follow-up for invasive ductal carcinoma. She had been diagnosed last December, for left breast invasive ductal carcinoma. Her MRI at that time showed that the tumor probably was 42 mm in widest dimension. She was therefore seen by Oncology and Dr. Siegel had recommended proceeding with neoadjuvant treatment. She had been on Taxotere and cyclophosphamide. She says she has tolerated chemotherapy but does complain of loss of appetite, fatigue, as well as skin changes on her hands . [facility] Medical History Invasive ductal carcinoma of breast Left breast mass Severe obesity (BMI 35.0-35.9 with comorbidity) Physical exam Effusion, left knee Severe obesity with body mass index (BMI) of 36.0 to 36.9 with serious comorbidity Mild recurrent major depression Left knee pain Lumbar degenerative disc disease Anxiety Mixed hyperlipidemia Essential hypertension Surgical History History of tubal ligation History of laparoscopic cholecystectomy Family History Father Myocardial infarction Alcoholism Mother Stroke Diabetes Hypertension Sister Breast cancer Son No problems noted. Family/Other FH: mental illness Mental health disorder Social History Household Members: None Housing: House Are you a primary critical care specialist to a significant other at home: No Do you presently have visiting nurse or other home services: No Alcohol intake: never Patient Tobacco Use Status: Never used Tobacco e-Cigarette/Vaping Use: Never Used Second Hand Smoke Exposure: No service: No Current occupational status: unemployed Cognitive needs: Yes Hearing needs: No Vision needs: Yes Review of Systems Const Denies chills and Denies fever(s) Card Denies chest pain, Denies dyspnea and Denies dyspnea on exertion Resp Denies cough, Denies dyspnea and Denies dyspnea on exertion GI Denies hematochezia and Denies change in bowel habits Denies hematuria Musc Denies back pain and Denies limited range of motion Neuro Denies focal weakness and Denies convulsions Psych Denies depression and Denies mood swings Physical Exam Vital Signs: BMI result Body Mass Index 29.6 Const General: comfortable and no acute distress Orientation/consciousness: patient oriented x3 Neck Neck: Yes no lymphadenopathy Chest Other: No palpable breast masses, no axillary lymphadenopathy, no nipple or skin changes Resp Auscultation: clear to auscultation bilaterally Cardio Rhythm: regular rhythm GI Palpation (GI): Soft to palpation, nontender and no guarding Neuro General: patient oriented x3 Assessment & Plan Assessment & Plan (1) Invasive ductal carcinoma of breast: Code(s): C50.919 - Malignant neoplasm of unspecified site of unspecified female breast Category: Medical Plan: She had undergone neoadjuvant chemotherapy for her invasive ductal carcinoma. Her initial MRI suggested a large tumor, 4.2 cm in widest dimension. I had sent her for a follow up mammogram as she is unable to to have an MRI in view of the presence of the biopsy clip. This mammogram shows a little bit of internal decrease in the tumor size. The ultrasound in the mammogram from 2 days ago shows the tumor to be 1.7 x 0.7 x 0.9 cm, irregular and hypoechoic at the 12 o'clock position. I have discussed the above with the radiologist and she feels that the tumor has responded to neoadjuvant treatment and that lumpectomy we will be a viable option. I discussed this with the patient and she says that she would really prefer to undergo lumpectomy 1st prior to considering mastectomy. I had a long discussion with her about the technique of lumpectomy with the Hologic localizer and sentinel biopsy. I reviewed the risks including but not limited to bleeding, infections, hematoma, the need for additional procedures, nerve injury in the axilla, as well as the benefits and alternatives. She wants to proceed. Orders: Orders NM sentinel node w imaging 05/19/25 C50.919 - Malignant neoplasm of unspecified site of unspecified female breast Referrals General Surgery Procedure Notification C50.919 - Malignant neoplasm of unspecified site of unspecified female breast Coding Level of Care Code Est Pt Level 4 (57709) Diagnoses Invasive ductal carcinoma of breast C50.919
[2025-05-19 09:23] VITALS: BMI 29.6
== END 2025-05-19 09:40 | disposition home or self-care (01) ==
LOC: HO.HGS 09:17
PROVIDERS: PCP Internal Medicine; Visit Provider Surgery
DX: C50.919 Malignant neoplasm of unspecified site of unspecified female breast (principal)
CPT/HCPCS: 99214

== ENCOUNTER → 2025-05-19 09:16 | Outpatient (BNVA) | payer OTHER, SELFPAY | PROVIDERS: PCP Internal Medicine; Visit Provider Surgery | DX: C50.912 Malignant neoplasm of unspecified site of left female breast (principal) | CPT/HCPCS: 99212 ==

== ENCOUNTER 2025-06-06 06:56 | Day surgery (SDC) | payer OTHER, SELFPAY ==
--- NOTE | 2025-05-31 12:05 | HO.ANESPROP2 ---
Documented by User: Gayle Balderas NP 05/31/25 12:07 HPI - Anesthesia Eval Consult details Narrative: 65yo F for Left Breast Lumpectomy w/LOCalizer, [place] Node Biopsy PMFSH Active Problems Active Problems: All Active Problems Chronic GERD (Acute) Invasive ductal carcinoma of breast (Acute) Left breast mass (Acute) Postmenopausal bleeding (Acute) Encounter for well woman exam with routine gynecological exam (Acute) Blurry vision (Acute) Screening for cervical cancer (Acute) Common bile duct dilatation (Acute) Left upper quadrant abdominal pain (Acute) Physical exam (Acute) Effusion, left knee (Acute) Mild recurrent major depression (Acute) Left knee pain (Acute) Osteoarthritis of knees, bilateral (Acute) Depression (Acute) Lumbar degenerative disc disease (Acute) Anxiety (Acute) Mixed hyperlipidemia (Acute) Essential hypertension (Acute) Past Medical History Medical History History of chemotherapy Breast cancer, left Invasive ductal carcinoma of breast Left breast mass Severe obesity (BMI 35.0-35.9 with comorbidity) Physical exam Effusion, left knee Severe obesity with body mass index (BMI) of 36.0 to 36.9 with serious comorbidity Mild recurrent major depression Left knee pain Lumbar degenerative disc disease Anxiety Mixed hyperlipidemia Essential hypertension Family History Family History Father Myocardial infarction Alcoholism Mother Stroke Diabetes Hypertension Sister Breast cancer Son No problems noted. Family/Other FH: mental illness Mental health disorder Surgical History Surgical History History of insertion of tunneled central venous catheter (CVC) with port (01/25/25) Hx of dilation and curettage (01/16/24) History of tubal ligation History of laparoscopic cholecystectomy History of Problems with Anesthesia: No Social History Social History Household Members: None Housing: House Are you a primary child care coordinator to a significant other at home: No Do you presently have visiting nurse or other home services: No Alcohol intake: never Patient Tobacco Use Status: Never used Tobacco e-Cigarette/Vaping Use: Never Used Second Hand Smoke Exposure: No Have you been hit, kicked, punched, or otherwise hurt by someone within the past year? If so, by whom?: No Advance Directives: No Advance Directives Information Provided: Yes service: No Current occupational status: unemployed Cognitive needs: Yes Hearing needs: No Vision needs: Yes Meds Allergies Allergy/AdvReac Type Severity Reaction Status Date / Time aspirin (ASA) Allergy Intermediate PALPITATION Verified 05/19/25 09:24 S Penicillins (PENICILLINS) Allergy Intermediate RASH Verified 05/19/25 09:24 topiramate AdvReac Intermediate headache Verified 05/19/25 09:24 Home Medications ?Medication ?Instructions ?Recorded ?Confirmed ?Last Taken ?Type bupropion HCl 300 mg 24 hr tablet, 300 mg PO QAM 05/31/20 06/01/25 Unknown History extended release acetaminophen 650 mg 1,300 mg PO Q12H 11/22/21 06/01/25 Unknown History tablet,extended release (Tylenol Arthritis Pain) Exam Pertinent Lab Results Pertinent Lab Results: Laboratory Tests 05/11/25 11:45 WBC 7.4 Hgb 9.0 L Hct 28.1 L Plt Count 198 Sodium 142 Potassium 3.6 Chloride 110 H Carbon Dioxide 26 BUN 9 Creatinine 0.45 L Narrative Narrative: ECHO 02/2025 Conclusions: - The left ventricular systolic function is normal. The calculated ejection fraction is 60% by biplane method. - No obvious valvular pathology seen on this study. Assessment and Plan Assessment Anesthesia Assessment: Chart Reviewed Final Anesthetic Review History of Problems with Anesthesia: No Documented by User: Rory Purdy MD 06/06/25 08:55 [facility] Past Medical History Medical History History of chemotherapy Breast cancer, left Invasive ductal carcinoma of breast Left breast mass Severe obesity (BMI 35.0-35.9 with comorbidity) Physical exam Effusion, left knee Severe obesity with body mass index (BMI) of 36.0 to 36.9 with serious comorbidity Mild recurrent major depression Left knee pain Lumbar degenerative disc disease Anxiety Mixed hyperlipidemia Essential hypertension Family History Family History Father Myocardial infarction Alcoholism Mother Stroke Diabetes Hypertension Sister Breast cancer Son No problems noted. Family/Other FH: mental illness Mental health disorder Family history of problems with anesthesia: No Surgical History Surgical History History of insertion of tunneled central venous catheter (CVC) with port (01/25/25) Hx of dilation and curettage (01/16/24) History of tubal ligation History of laparoscopic cholecystectomy Social History Social History Household Members: None Housing: House Are you a primary child care coordinator to a significant other at home: No Do you presently have visiting nurse or other home services: No Alcohol intake: never Patient Tobacco Use Status: Never used Tobacco e-Cigarette/Vaping Use: Never Used Second Hand Smoke Exposure: No Have you been hit, kicked, punched, or otherwise hurt by someone within the past year? If so, by whom?: No Advance Directives: No Advance Directives Information Provided: Yes service: No Current occupational status: unemployed Cognitive needs: Yes Hearing needs: No Vision needs: Yes Meds Allergies Allergy/AdvReac Type Severity Reaction Status Date / Time aspirin (ASA) Allergy Intermediate PALPITATION Verified 05/19/25 09:24 S Penicillins (PENICILLINS) Allergy Intermediate RASH Verified 05/19/25 09:24 topiramate AdvReac Intermediate headache Verified 05/19/25 09:24 Home Medications ?Medication ?Instructions ?Recorded ?Confirmed ?Last Taken ?Type bupropion HCl 300 mg 24 hr tablet, 300 mg PO QAM 05/31/20 06/01/25 Unknown History extended release acetaminophen 650 mg 1,300 mg PO Q12H 11/22/21 06/01/25 Unknown History tablet,extended release (Tylenol Arthritis Pain) Exam Exam Date and Time: 06/06/25 Airway Mallampati Class: II TM Dist: >3cm Neck ROM: Full Heart: rrr Lungs: ctab vesicular Assessment and Plan Assessment Anesthesia Assessment: Anesthesia Plan Discussed Final Anesthetic Review Family History of Problems with Anesthesia: No NPO: Yes ASA Class: III Final Preanesthetic Review: No Changes in Pt Med Stat, Meds/Allgs Chart Reviewed, Consent Obtained/Reviewed and Anes Risks/Benef Reviewed Patient Risk: Intermediate Procedure Risk: Low Anesthetic Plan Anesthetic Plan: GA Disposition: Standard PACU
[2025-06-01 10:51] VITALS: BMI 29.6
[2025-06-06] VITALS (9 sets, daily range): BP systolic 131–210; BP diastolic 75–96; PULSE 64–89; RESP 10–20; TEMP 36.2–36.4; O2SAT 92–97; BMI 29.3
--- NOTE | ~2025-06-06 | NM_ITS ---
EXAMINATION: NM SENTINEL NODE INJECTION HISTORY: C50.919 - Malignant neoplasm of unspecified site of unspecified female b... COMPARISON: Previous left breast mammogram and ultrasound most recent May 2025 Technique: 4 separate aliquots of 0.125 mCi of technetium 99m labeled M labeled lymphoseek were injected into the subcutaneous left breast at the skin and nipple interface at the 12, 3, 6 and 9:00 axis for total dose of 0.5 mCi. Imaging of the chest in the anterior CARLITA and left lateral position was performed. FINDINGS: There is adequate radiotracer uptake at the injection site. There is a sentinel node activity seen in the left axilla. 2 sentinel nodes are seen. NM/NM sentinel node w imaging IMPRESSION: Positive sentinel node activity in the left axilla. Electronically signed by: Jennifer Beaver MD 06/06/2025 02:02 PM LY
--- NOTE | ~2025-06-06 | MM_ITS ---
Left specimen radiographs (total of four images) demonstrates the coil shape clip and the LOCalizer tag within the different specimens. Results were discussed with the operating room at the time of imaging. Electronically signed by: Dominik Palm MD 06/06/2025 02:01 PM [facility]
[2025-06-06] MEDS: Lactated Ringers 1,000 ML 100 ML IVCONT (07:33)
--- NOTE | 2025-06-06 08:29 | PC.NURSE ---
pt to nuc med
--- NOTE | 2025-06-06 11:56 | MHC.SHP ---
Pre-Procedural Eval Section A - 24 Hr Update-Section A only Date of Service: 06/06/25 The patient is an INPATIENT: No Changes since office visit: No Cold of Flu in the past 2 weeks, No New Medical Problems, No Changes in Medication and No Patient answered all questions The patient has been examined within 24 hours of the surgical procedure. The History & Physical has been completed within 30 days and I have reviewed it.: Yes Section B - Complete if H&P > 30 days Chief Complaint: Malignant neoplasm of unspecified site Allergies: Allergies Allergy/AdvReac Type Severity Reaction Status Date / Time aspirin (ASA) Allergy Intermediate PALPITATION Verified 05/19/25 09:24 S Penicillins (PENICILLINS) Allergy Intermediate RASH Verified 05/19/25 09:24 topiramate AdvReac Intermediate headache Verified 05/19/25 09:24 Plan I have reviewed the history and physical and performed a pertinent physical examination on my patient. No changes have occurred unless specified. Time Spent With Patient Time: Total time managing care of this patient today ____ minutes.
--- NOTE | 2025-06-06 13:59 | P.OP_ITS ---
Operative Note Operative Note Date of Service: 06/06/25 Narrative: Preop diagnosis: Left breast invasive ductal carcinoma, status post neoadjuvant chemotherapy Postop diagnosis: The same Procedure: Left breast lumpectomy with the Hologic localizer, sentinel node biopsy, with excision of wider margins on the anteromedial side Surgeon: Jason Roblero MD timber management assistant: PATEL Ghosh The patient is a 65 year female who had undergone neoadjuvant chemotherapy for large invasive ductal carcinoma. She is here for lumpectomy via the Hologic localizer with sentinel biopsy. She understood the technique of the planned procedure as well as the risks, benefits, and alternatives. The procedure had been discussed with the oncologist. She was brought to the operating room placed supine under general anesthesia via laryngeal mask airway. The left arm was abducted to expose the axilla. She had undergone lymphoscintigraphy earlier and I had reviewed the images. There were 2 axillary lymph node that seemed to have good uptake of the radionuclide. The left breast as well as the left axilla were prepped and draped in the usual sterile fashion. A surgical time-out was done. The patient received cefazolin 2 g IV preoperatively With the Hologic localizer, I identified the location of the RF ID clip closest to the skin. I marked this area. I injected this with lidocaine 1%. I made a transverse incision on the superior aspect of the breast at around the 1 o'clock position. I carried down the incision through the full-thickness of the skin and subcutaneous fat using electrocautery. I then periodically used the Hologic localizer to identify the location of the RF ID clip. I dissected around this circumferentially using the curved Lam scissors, making sure that we had adequate margins around the RF ID clip. We completed dissection circumferentially. I marked the superior and medial margins with sutures for orientation. Immediate re-ray showed that the ID clip was in the specimen but I could not visualize the original biopsy clip Since the tumor appeared to be medial and inferior to the RF ID clip, I decided to do wider excision on this area. I again marked this new specimen with sutures for orientation. This would be a new medial margin of the original lumpectomy specimen. Immediate re-ray of this 2nd lumpectomy specimen showed that the biopsy clip was within the specimen. Both lumpectomy site has been were therefore sent for immediate gross exam with the pathologist I observed for hemostasis. I copiously irrigated. Once hemostasis appeared adequate, I packed the area with gauze We then proceeded to do the sentinel node biopsy. We changed instruments as well as gloves. I used the probe to localize the sentinel nodes. I infiltrated the planned line of incision with lidocaine 1%. I made the incision with a blade 1 and this was carried down through the full-thickness of the skin and subcutaneous fat with electrocautery. I opened up the fascia of the axilla. I then periodically used the gamma probe to identify the sentinel nodes. I was able to identify 2 sentinel nodes. Both of these were gently dissected, and transected above right angle clamps. The pedicles were ligated with Polysorb 3- 0 ties. [place] node 1 had a count of 834. [place] node 2 had a count of 599. I copiously irrigated the sentinel node biopsy site in the axilla. I observed for hemostasis. Once hemostasis was confirmed, I reapposed the deeper layers with Polysorb 3-0 simple interrupted sutures. Skin closure was achieved with Polysorb 4-0 subcuticular running sutures. I then proceeded to go down to the pathology lab and reviewed the lumpectomy specimens with the pathologist. The tumor appeared to be in the 2nd specimen and the anteromedial margins seemed to be close I went back to the operating room. We therefore proceeded to remove more of the anteromedial margins which appeared to be grossly normal. This was done using Lam scissors I copiously irrigated again. I cauterized oozing areas. Once hemostasis was confirmed, I proceeded to reapposed the deep breast layers with Polysorb 3-0 simple interrupted sutures. Skin closure was achieved with Polysorb 4-0 subcuticular running sutures All incisions were infiltrated with Marcaine 0.5% for postop analgesia Dressings were applied and the procedure was completed The patient tolerated the procedure well. There were no immediate complications. Initial and final counts of sponges and instruments were correct. Estimated blood loss was about 75 cc The patient was extubated without difficulty and transferred to the recovery room with stable vital signs. The specimens consisted of the following: A. Initial lumpectomy specimen with the RFID clip B. Second lumpectomy specimen with the biopsy clip E. Additional anteromedial margin past the second lumpectomy specimen Breast [place] Node Biopsy Substrate(s) used for sentinel node biopsy in the non-neoadjuvant setting: N/A Substrate(s) used for sentinel node biopsy in the neoadjuvant setting: Radiotracer All colored nodes or non-colored nodes present at the end of a dye filled lymphatic channel were removed, if dye was used as the substrate for localization: N/A All significantly radioactive nodes were removed, if radionuclide was used as t he substrate for localization: Yes All palpably suspicious nodes were removed, if present: N/A If clips were placed in pathology-involved nodes, those nodes were identified and removed: N/A Procedure performed with curative intent?: Yes General Surg. - Synoptic Notes Breast [place] Node Biopsy Substrate(s) used for sentinel node biopsy in the non-neoadjuvant setting: N/A Substrate(s) used for sentinel node biopsy in the neoadjuvant setting: Radiotracer All colored nodes or non-colored nodes present at the end of a dye filled lymphatic channel were removed, if dye was used as the substrate for loca lization: N/A All significantly radioactive nodes were removed, if radionuclide was used as the substrate for localization: Yes All palpably suspicious nodes were removed, if present: N/A If clips were placed in pathology-involved nodes, those nodes were identified and removed: N/A Procedure performed with curative intent?: Yes
== END 2025-06-06 15:34 | disposition home or self-care (01) ==
PROVIDERS: PCP Internal Medicine; Visit Provider Surgery
PROC: (CPT 19301; principal; 2025-06-06 12:30)
PROC: (CPT 19301; 2025-06-06 12:30)
DX: C50.912 Malignant neoplasm of unspecified site of left female breast (principal); Z92.21 Personal history of antineoplastic chemotherapy; Z17.0 Estrogen receptor positive status [ER+]; Z17.21 Progesterone receptor positive status; Z17.32 Human epidermal growth factor receptor 2 negative status; F33.0 Major depressive disorder, recurrent, mild; F41.9 Anxiety disorder, unspecified; I10 Essential (primary) hypertension; E78.2 Mixed hyperlipidemia; Z88.0 Allergy status to penicillin; Z88.6 Allergy status to analgesic agent; Z88.8 Allergy status to other drugs, medicaments and biological substances; Z98.51 Tubal ligation status; Z90.49 Acquired absence of other specified parts of digestive tract; Z56.0 Unemployment, unspecified
CPT/HCPCS: 19301; 38525; 38900; 78195; 88307; 88341; 88342; A9520; J0690; J1100; J1171; J2003; J2250; J2405; J2704; J2795; J3010

== ENCOUNTER → 2025-06-06 06:56 | Outpatient (BNV) | payer OTHER, SELFPAY | PROVIDERS: PCP Internal Medicine; Visit Provider Surgery | DX: C50.912 Malignant neoplasm of unspecified site of left female breast (principal) | CPT/HCPCS: 19301; 38525 ==

== ENCOUNTER → 2025-06-06 08:42 | Outpatient (BNV) | payer OTHER, SELFPAY | PROVIDERS: PCP Internal Medicine; Visit Provider Radiology Diagnostic Radiology | DX: C50.919 Malignant neoplasm of unspecified site of unspecified female breast (principal) | CPT/HCPCS: 78195 ==